=== PATIENT | female | born 1945 | race Caucasian/White ===

== ENCOUNTER → 2021-10-24 14:06 | Outpatient (CLI) | payer MEDICARE, SELFPAY ==
[2021-10-24 14:15] LABS: Adenovirus F 40/41, stool Not Detected (NotDetected); Astrovirus Not Detected (NotDetected); Campylobacter Not Detected (NotDetected); Clostridium Difficile A/B, PCR Not Detected (NotDetected); Cryptosporidium Not Detected (NotDetected); Cyclospora Cayetanesis Not Detected (NotDetected); Entamoeba histolytica Not Detected (NotDetected); Enteroaggregative E coli Not Detected (NotDetected); Enteropathogenic E coli Not Detected (NotDetected); Enterotoxigenic E coli Not Detected (NotDetected); Giardia lamblia Not Detected (NotDetected); Norovirus Not Detected (NotDetected); Plesimonas Shigalloides, PCR Not Detected (NotDetected); Rotavirus A Not Detected (NotDetected); Salmonella, PCR Not Detected (NotDetected); Sapovirus Not Detected (NotDetected); Shiga-like toxin E coli Not Detected (NotDetected); Shigella Enterovasive E coli Not Detected (NotDetected); Vibrio Cholerae Not Detected (NotDetected); Vibrio, PCR Not Detected (NotDetected); Yersinia Entercolitica, PCR Not Detected (NotDetected)
== END ==
PROVIDERS: Visit Provider Nurse Practitioner Family
DX: R19.7 Diarrhea, unspecified (principal); R19.4 Change in bowel habit; R15.2 Fecal urgency; R14.0 Abdominal distension (gaseous); R15.9 Full incontinence of feces
CPT/HCPCS: 87506

== ENCOUNTER 2024-10-09 12:53 | Outpatient (CLI) | payer MEDICARE, SELFPAY ==
[2024-10-09 13:20] LABS: Basophils % 0.5 % (0.1-2.0); Eosinophils # 0.1 K/mm3 (0.0-0.4); Eosinophils % 1.1 % (0.1-12.0); Hematocrit 35.2 % (37.0-47.0); Hemoglobin 11.6 g/dL (12.2-16.2); Lymphocytes # 1.9 K/mm3 (0.7-4.5); Lymphocytes % 29.4 % (10-50); Mean Corpuscular Hemoglobin 32.4 pg (27.0-31.2); Mean Corpuscular Volume 98.3 fl (81-99); Mean Platelet Volume 11.5 fl (7.4-10.4); Monocytes # 0.5 K/mm3 (0.1-1.0); Monocytes % 7.8 % (1.7-9.3); Platelet Count 234 K/mm3 (142-424); Red Blood Count 3.58 M/mm3 (4.20-5.40); Red Cell Distribution Width 12.2 % (11.5-17.5); White Blood Count 6.5 K/mm3 (4.8-10.8)
[2024-10-09 14:03] LABS: Chloride 106 mmol/L (98-107); Sodium 141 mmol/L (136-145)
[2024-10-09 14:06] LABS: Blood Urea Nitrogen 25 mg/dl (7-17); Calcium 10.1 mg/dl (8.4-10.2); Carbon Dioxide 30 mmol/L (22.0-30.0); Estimated Glomerular Filt Rate 48 ml/min (>60); GFR (African American) 58 ML/MIN (>60); Glucose 91 mg/dl (74-100)
== END 2024-10-09 23:59 | disposition home or self-care (01) ==
LOC: LAB 12:56
PROVIDERS: PCP Physician Assistant Surgical; Visit Provider Surgery
DX: Z79.01 Long term (current) use of anticoagulants (principal); Z91.02 Food additives allergy status; I10 Essential (primary) hypertension
CPT/HCPCS: 36415; 80048; 85025

== ENCOUNTER 2025-01-22 11:54 | Outpatient (CLI) | payer MEDICARE, SELFPAY ==
--- OUTSIDE RECORDS SUMMARY | 2025-01-22 11:57 | XMS_ITS | Continuity of Care Document ---
Author Organization [facility] Address [address] [address] Care Team Providers Care Core Sticker Name Role Phone ANGEL CHAU Primary Care Provider Assessment No assessment recorded. Plan of Treatment Reminders Order Date Submit Date Provider Last Modified By Organization Details Last Modified Time Details Appointments NEUROLOG Y RECHECK 2024 02:00P M [facility] Not available Not available Not available RECHECK 2024 01:30P M ANGEL CHAU PA-C Not available Not available Not available DERM VISIT 2025 01:40P M WHITNEY NARVAEZ RECYCLING DIRECTOR Not available Not available Not available Lab CMP, serum or plasma 2024 025 [facility], [address] [place] [address], [phone], 12/07/2024 19:19:24 vitamin D, 25-hydro xy, total, serum 2024 025 [facility], [address] [place] [address], [phone], 12/07/2024 19:04:54 lipid panel, serum 2024 025 [facility], [address] [place] [address], [phone], 12/07/2024 19:19:22 iron + total iron-bin ding capacity (TIBC), serum 2024 025 [facility], [address] [place] [address], [phone], 12/07/2024 19:19:25 CBC w/ auto diff 2024 025 [facility], [address] [place] [address], [phone], 12/07/2024 15:49:28 Referral None recorded . Procedures None recorded . Surgeries None recorded . Imaging None recorded . Medication Orders alendron ate 70 mg tablet 2024 025 [facility], [address], [id number], 12/08/2024 15:47:50 Patient TargetsNo targets recorded. Patient Instructions Encounter Date Encounter Id Patient Instructions Last Modified By Organization Details Last Modified Time 12/07/2024 [id number] adult depression screening* Not available 12/14/2024 11:20:29 fall risk assessment* Not available 12/14/2024 11:20:29 advance care planning: care instructions [email or web address] Not available 12/07/2024 14:12:39 Your Screening Plan: 1. Colon Cancer Screening: Colonoscopy - Last completed 11/14/2021 2. Cervical Cancer Screening: Pap Smear - Last completed 02/22/2019 3. Breast Cancer Screening: Mammogram - Last completed 06/26/2024 4. Lung Cancer Screening (Smokers only): LDCT Scan - Last completed 06/07/2024 Due 5. Bone Density Screening: DEXA - Last completed 01/03/2024 Due Not Due 6. Hepatitis C Screening: Completed Your Immunization Plan: 1. Hepatitis A - Not Indicated 2. Hepatitis B - Not Indicated 3. Tdap - Last completed 12/06/2023 Due 4. PCV20 - 5. Shingrix - Needs 2nd dose 6. COVID-19 - Completed 7. RSV - Completed 8. Influenza - Completed current season [email or web address] Not available 11/30/2024 12:52:15 Reason for Referral None Reported. Results Created Date Observation Date Name Description Value Unit Range Abnormal Flag Note LastModifiedBy Organization Detail LastModifiedTime 01/06/2001/02/2025 ankle brach ial index No observ ation record ed. [email or web address] Not Available 01/05 08:54:31 01/06/20 25 01/02/2025 vascu lar exami nattyler n (PROC ) No observ ation record ed. [email or web address] Not Available 2024 11:57:47 01/06/20 25 01/02/2025 (LASHON) ankle brach ial index * No observ ation record ed. [email or web address] Not Available 2024 11:57:20 01/06/20 25 01/02/2025 US, duple x, arter ial, lower extre mity, compl ete No observ ation record ed. [email or web address] Not Available 01/05 16:41:32 Result Notes None recorded. Problems Name Problem SNOMED Code Status Onset Date Resolution Date Notes Provider Name and Address Organization Details Recorded Time Periphera l vascular disease 731864739 Active 2016 Arterial ultrasoun d both lower extremiti es by Dr. Reza 11/25/2023 showed moderate occlusive disease in the right lower extremity and mild occlusive disease in the left lower extremity noted also on arterial Doppler right lower extremity 10/27/2023 -Dr. Reza. 08/17/22-r =severele ft -milddr juaquin RIZO MD [address] [place] [address], [phone] 4 15:23:25 Tobacco dependenc e syndrome 59164080 Active 2016 Stefania Brush [facility] 4 09:42:31 Hyperlipi demia 60534723 Active 2016 Zoila Ordoñez [facility] 4 09:59:37 Chronic obstructi ve pulmonary disease 89489777 Active 2018 Stefania Brush [facility] 4 09:42:31 Nicotine dependenc e 54680696 Active 2020 Zoila Ordoñez [facility] 4 09:59:37 Coronary arteriosc lerosis 88068025 Active 2021 Stefania Brush [facility] 4 09:42:31 Osteopeni a 761878600 Active 2021 Zoilafavian Ordoñez [facility], [facility] 4 09:59:37 History of colonosco py 109727764840 Active 2021 Zoila Ordoñez [facility], [facility] 4 09:59:38 Eczema 25405731 Active 2021 Zoilafavian Ordoñez [facility], [facility] 4 09:59:37 Chronic kidney disease stage 3A 408848893 Active 2022 Zoilafavian Ordoñez [facility], [facility] 4 09:59:37 Near syncope 292165813 Active 2022 Monticello Tiago [facility], [facility] 4 09:59:37 Idiopathi c periphera l neuropath y 00555315 Active 2022 [facility] 4 09:59:37 Long-term current use of anticoagu lant 610192721 Active 2022 Zoila Ordoñez [facility] 4 09:59:37 Malnutrit ion (calorie) 885634307 Active Mont[place]ello Tiago [facility] 4 09:59:37 Microscop ic colitis 441007401 Active 2022 [facility] 4 09:59:37 Iron deficienc y anemia 93472464 Active 2023 [place], [address], [facility] 4 16:11:38 Atrial fibrillat ion 72680848 Active 2023 [place], [address], [facility] 4 16:11:38 Hypercoag ulability state 77733520 Active 2023 [place], [address], [facility] 4 16:11:38 History of syncope 855464966448 109 Active 2024 ANGEL CHAU PA-C [address] [place], [address], [facility] 5 16:23:35 Hypertens pacheco disorder 15426606 Active 2014 From Automated Load;Prov ider: Cr King;St atus: Active Stefania Brush lori, [facility] 4 09:42:31 Problem Notes None recorded. Procedures Surgical History Date Name Laterality Status Provider Name and Address Organization Details Recorded Time 12/08/19 25 Cerumen removal - Irrigation, Unilateral completed ANGEL CHAU PA-C [address] [place], [address], [facility] 12/07/2024 14:04:30 01/03/20 24 DXA Low Bone Mass 2 - Tx completed NOEMI LEVINE MD [address] [place], [address], [facility] 01/03/2024 16:21:33 11/12/19 24 TCM completed Jenny Story [facility] 11/11/2023 07:29:34 08/18/19 24 Destruction BN Lesions completed Winter Osborne [facility] 08/18/2023 14:24:56 09/10/19 23 TCM completed ANGEL CHAU PA-C [address] [place], [address], [facility] 09/02/2022 15:23:29 06/08/20 22 EKG completed LUCA LEUNG PA-C [address] [place], [address], [facility] 06/08/2022 15:49:40 05/27/20 22 Destruction Premalignant Lesion(s) completed Sherice Hema [facility] 05/27/2022 13:49:55 02/13/20 22 Tobacco Cessation Counseling; 3-10 mins completed RADHA TOLENTINO DO [address] [place], [address], [facility] 02/12/2022 14:57:11 09/03/19 22 DXA Low Bone Mass 2 - Tx completed NOEMI LEVINE MD [address] [place] [address], [address], [facility] 09/03/2021 16:01:11 06/09/20 21 EKG completed LUCA LEUNG PA-C [address] [place] [address], [address], [facility] 06/09/2021 16:49:56 06/28/20 20 EKG completed LUCA LEUNG PA-C [address] [place] [address], [address], [facility] 06/28/2020 12:24:27 04/09/20 20 Electromyography (EMG) with Nerve Conduction Study (NCV) completed Ingrid Moss (Camille) [facility] 04/09/2020 12:55:51 03/14/20 19 DXA Low Bone Mass 2 - Tx completed NOEMI LEVINE MD [address] [place] [address], [address], [facility] 03/14/2019 16:38:02 03/07/20 19 Stress Test - Nuclear Lexiscan completed CR KING MD [address] [place] [address], [address], [facility] 03/07/2019 12:15:56 02/23/20 19 Cerumen removal - Instruments, Bilateral completed ALIREZA RAHMAN PA-C [address] [place] [address], [address], [facility] 02/23/2019 05:42:41 12/27/19 19 Echocardiogram completed YULISSA KINCAID MD [address] [place] [address], [address], [facility] 12/26/2018 09:53:18 12/21/19 19 VAS - Carotid Duplex completed CR KING MD [address] [place] [address], [address], [facility] 12/20/2018 12:51:36 12/21/19 19 EKG completed SUSAN URB[place], [address], [facility] 12/20/2018 12:43:33 10/21/19 19 VAS - Art Dup - Lower Extremity completed HUSSEIN BINGHAM MD [address] [place], [address], [facility] 10/20/2018 15:00:31 10/21/19 19 EKG [place], [address], [facility] 10/20/2018 14:40:00 04/19/20 18 Stress Test - Nuclear completed CR KING MD [address] [place], [address], [facility] 04/19/2018 15:40:42 10/21/19 18 EKG completed [place], [address], [facility] 10/20/2017 13:55:52 04/21/20 17 VAS - Art Dup - Lower Extremity completed CR KING MD [address] [place], [address], [facility] 04/21/2017 15:43:54 04/21/20 17 EKG completed [place], [address], [facility] 04/21/2017 14:41:51 10/13/19 17 EKG [place], [address], [facility] 10/12/2016 11:45:52 femoral artery bypass completed Dalia Richard [facility] 08/31/2024 13:27:36 Cholecystectomy completed Mojgan Mccabe [facility] 09/08/2016 08:23:42 Cardiac Surgery completed Mojgan Mccabe [facility] 09/08/2016 08:23:53 Remove tonsils and adenoids completed [facility] 09/08/2016 08:23:59 Other completed [facility] 09/08/2016 08:24:07 Imaging Results None recorded. Procedure Notes None recorded. Medical Equipment Implant [employer] Issuing Agency Serial Number Lot Number Status Provider Name and Address Organization Details Recorded Time [employer] FDA [id number] Y Jennifer Evangelista [facility] 04/06/2019 17:20:02 Allergies Allergen ID Allergen Name Allergen Category Reaction Reaction Severity Criticality Documentation Date Start Date Code Code System Note Provider Name and Address Organization Details Recorded Time 404205 acetamino phen / hydrocodo ne medicatio n Not available Not available Not available 06/11/20162012 72306 2 RxNorm updat ed 8-201 9 Susannah geiger [facility] 9 08:25:28 323993 Keflex medicatio n Not available Not available Not available 06/11/20162010 02064 7 RxNorm updat ed 8-201 9 Susannah geiger [facility] 9 08:25:22 040787 codeine medicatio n Not available Not available Not available 06/11/20162010 2670 RxNorm updat ed 8-201 9 Susannah geiger [facility] 9 08:25:16 451730 Product containin g penicilli n (product) medicatio n Not available Not available Not available 03/07/2019 87821 8001 SNOMED updat ed 8-201 9 Susannah geiger [facility] 9 10:17:08 154198 Medicinal product containin g cephalosp clare and acting as antibacte rial agent (product) medicatio n Not available Not available Not available 03/07/2019 89772 9009 SNOMED Susannah geiger [facility] 9 10:17:26 266602 cephalexi n medicatio n Not available Not available Not available 06/15/2022 2231 RxNorm Stefania Brush [facility] 15:53:28 Medications Name Sig Start Date Stop Date Status Note LastModified by Organization Details LastModified Time famotidin e 10 mg tablet (10 MG) 06/02 completed Not Available Not Available Not Available atorvasta tin 10 mg tablet Take 1 tablet every day by oral route. active Not Available Not Available No t Available alendrona te 70 mg tablet Take 1 tablet every week by oral route. 2024 active Not Available Not Available Not Avai lable simvastat in 10 mg tablet Take 1 tablet every day by oral route. 11/23 completed d/c'd per hospital ist 11/06/[address] of simvasta tin Not Available Not Available Not Available Plavix 75 mg tablet Take 1 mg every day by oral route. 06/08 completed Not Available Not Available Not Available aspirin 81 mg tablet,de layed release 1 {tablet_ dr} by oral route. active Not Available Not Available No t Available triamcino lone acetonide 0.1 % topical cream APPLY A THIN LAYER TO THE AFFECTED AREA(S) BY TOPICAL ROUTE 2 TIMES PER DAY 2021 active Not Available Not Available Not Avai lable prednison e 10 mg tablets in a dose pack take as directed . 06/02 completed Not Available Not Available Not Available famotidin e 20 mg tablet 20 mg by oral route. active Not Available Not Available No t Available lisinopri l 10 mg tablet Take 1 tablet every day by oral route. 12/11 completed Not Available Not Available Not Available nitroglyc maria l 0.4 mg sublingua l tablet As needed 2020 active Frequenc y: prn;Medi cation Descript ion: nitrogly cerin; Dosage:1 ; Route:richardson blingual ; refills: PRN 1 yr; Quantity :25 tablet Not Available Not Available Not Available Advil 200 mg tablet As needed 03/07 completed Frequenc y: prn;Medi cation Descript ion: ibuprofe n; Dosage:4 ; Route:or al; refills: 0 Not Available Not Available Not Available aspirin 81 mg tablet Daily 09/09 completed Duration : 30 days;Yoshi quency: daily;Me dication Descript ion: aspirin; Dosage:1 ; Route:or al; refills: 0; Quantity :30 tablet Not Available Not Available Not Available lisinopri l 5 mg tablet TAKE ONE TABLET BY MOUTH ONCE A DAY 2021 active Not Available Not Available Not Avai lable gabapenti n 100 mg capsule Take 2 capsules every day by oral route at bedtime for 90 days, for nerve pain. 2024 active Not Available Not Available Not Avai lable lisinopri l 10 mg-hydroc hlorothia zide 12.5 mg tablet Take one each day 03/09 completed Frequenc y: daily;Me dication Descript ion: hydrochl orothiaz martin-patricia nopril; Dosage:1 ; Route:or al; refills: 3; Quantity :90 tablet Not Available Not Available Not Available amoxicill in 875 mg-potass ium clavulana te 125 mg tablet Take 1 tablet every 12 hours by oral route for 7 days. 06/08 completed Not Available Not Available Not Available neomycin- polymyxin -hydrocor t 3.5 mg-10,000 unit/mL-1 % ear drops,rome p INSTILL 4 DROPS INTO AFFECTED EAR(S) BY OTIC ROUTE 3 TIMES PER DAY 03/07 completed Not Available Not Available Not Available ibandrona te 150 mg tablet TAKE ONE TABLET BY MOUTH ONCE A MONTH 12/07 completed Not Available Not Available Not Available potassium chloride Daily 12/20 completed Frequenc y: daily;Me dication Descript ion: potassiu m chloride ; Dosage:1 ; refills: 5; Quantity :30 Not Available Not Available Not Available Pepcid 08/31 completed Not Available Not Available Not Available B Complex active Not Available Not Reena ilable Not Available Lipitor 08/31 completed Not Available Not Available Not Available Zantac PRN 12/25 completed Not Available Not Available Not Available Citracal Q hs 02/27 completed Not Available Not Available Not Available Multivita mins Daily active Duration : 30 days;Yoshi quency: daily;Me dication Descript ion: multivit isaac; Dosage:1 ; refills: 0; Quantity :30 Not Available Not Available Not Available Metamucil active Not Available Not Reena ilable Not Available Calcium 500 + D QD 04/28 completed Not Available Not Available Not Available Boniva 3 mg/3 mL intraveno us syringe (3 MG/3ML) active not taking (08/31/19 25) Not Available Not Available Not Available Fiber (calcium polycarbo larry) 625 mg tablet 625 mg by oral route. active Not Available Not Available No t Available triamcino lone acetonide 0.1 %-emollie nt comb.no.4 5 topical cream active Not Available Not Available Not Available Eliquis 5 mg tablet Take 1 tablet twice a day by oral route. active Not Available Not Available No t Available Vitals Date Recorded Body height Body mass index (BMI) Body weight Heart rate Systolic And Diastolic Provider Name and Address Organization Details Last Updated DateTime 12/07/2024 162.56 cm 20.8 kg/m2 07297.68 g 66 /min 123/50 mm[Hg] Tuyet Teran [facility] 12/07/2024 13:01:53 Social History Question Answer Notes LastModified by Organizat ion Details LastModified Time Tobacco Smoking Status Former Smoker Tuyet Teran [facility] 12/06/2023 13:35:13 How Much Tobacco Do You Chew? None [email or web address] Information not available 10/20/2018 Which Illicit Or Recreational Drugs Have You Used? No Illicit Drug Use Per Patient Information not available 10/20/2018 Marital Status Trav [email or web address] Informatio n not available 02/28/2020 What Was The Date Of Your Most Recent Tobacco Screening? 03/03/2023 Information not available 03/03/2023 What Is Your Relationship Status? [email or web address] Information not available 06/09/2021 How Much Tobacco Do You Smoke? 1 PPD Information not available 09/08/2016 Has Tobacco Cessation Counseling Been Provided? Yes [email or web address] Information not available 05/17/2017 On What Date Was Tobacco Cessation Counseling Provided? 03/03/2023 Information not available 03/03/2023 How Many Years Have You Smoked Tobacco? 40 Information not available 09/08/2016 Have You Recently Traveled Abroad? No [email or web address] Information not available 06/09/2021 Sex: Unknown Functional Status Question Answer Note LastModified by Organizat ion Details LastModified Time What is your level of alcohol consumption? Occasional [email or web address] Information not available 10/20/2018 Do you or have you ever used smokeless tobacco? Never used smokeless tobacco [email or web address] Information not available 02/22/2019 What is your occupation? retired [email or web address] Information not available 10/20/2018 Do you or have you ever used e-cigarettes or vape? Never used electronic cigarettes [email or web address] Information not available 02/22/2019 Mental Status None recorded. Family History Relationship Description Onset Age of this Age Resolved Age Notes LastModified by Organization Details LastModified Time Unspecified Relation Malignant neoplastic disease [email or web address] Not available 2016 08:22:24 Unspecified Relation Diabetes mellitus sruark Not available 2016 08:22:31 Unspecified Relation Heart disease sruark Not available 2016 08:22:36 Unspecified Relation Hypertensive disorder sruark Not available 2016 08:22:40 Unspecified Relation Kidney disease sruark Not available 2016 08:22:44 Unspecified Relation Cerebrovascu lar accident sruark Not available 08:22:48 Medical History Condition Response Diabetes N Rheumatic Fever N Bleeding Disorder N Thyroid Disease N Atrial Fibrillation N Hiatal hernia N AIDS/HIV N Tuberculosis N Black Lung N Cancer N Stroke N Thyroid Problems N Lung Disease N Asthma Y Peripheral Vascular Disease N Nervous Illness N Vascular Disease N Jaundice N Warfarin Management N Heart Disease N Ulcers N Hypertension Y Gynecological HistoryNo gynecological history recorded. Obstetrics History GPAL:G 0 P 0 0 0 0 Immunizations Vaccine Type Date Status Note Provider Nam e and Address Organization Details Recorded Time Influenza, adjuvanted, quadrivalent, PF [facility] 13:09:58 Pneumococcal conjugate PCV15, polysaccharide [id number] conjugate, adjuvant, PF 2 completed Tuyet sandoval [facility] 10/23/2021 13:37:09 COVID-19, mRNA, LNP-S, bivalent, PF, 50 mcg/0.5 mL or 25mcg/0.25 mL dose 2 completed ANGEL CHAU PA-C [address] [place], [address], [facility] 04/30/2022 14:31:48 Influenza, adjuvanted, quadrivalent, PF 2 completed ANGEL CHAU PA-C [address] [place], [address], [facility] 04/30/2022 14:31:48 pneumococcal polysaccharide PPV23 3 completed ANGEL CHAU PA-C [address] [place], [address], [facility] 11/04/2022 14:23:11 COVID-19, mRNA, LNP-S, PF, 100 mcg/0.5mL dose or 50 mcg/0.25mL dose 1 completed Not Available [facility] 08/24/2023 09:44:26 COVID-19, mRNA, LNP-S, PF, 100 mcg/0.5mL dose or 50 mcg/0.25mL dose 1 completed Not Available [facility] 08/24/2023 09:44:26 Influenza, high-dose, quadrivalent, PF 3 [facility]23 15:14:54 COVID-19, mRNA, LNP-S, PF, 50 mcg/0.5 mL 3 completed Tuyet Teran null, [facility] 05/05/2023 15:14:55 Tdap 4 completed Tuyet Teran null, [facility] 12/06/2023 14:50:04 zoster recombinant 4 [facility]06[facility]2023 14:50:05 COVID-19, mRNA, LNP-S, PF, 100 mcg/0.5mL dose or 50 mcg/0.25mL dose 1 completed Not Available [facility] 08/24/2023 09:44:26 COVID-19, mRNA, LNP-S, PF, 100 mcg/0.5mL dose or 50 mcg/0.25mL dose 2 completed Not Available [facility] 08/24/2023 09:44:26 RSV, recombinant, protein subunit RSVpreF, adjuvant reconstituted, 0.5 mL, PF 4 [facility] 06/09/2024 15:23:41 Influenza, high-dose, trivalent, PF 4 [facility] 06/09/2024 15:23:42 zoster recombinant 5 completed Tuyet Teran [facility] 12/07/2024 14:39:24 Past Encounters Encounter ID Performer Location Encounter Start Date Encounter Closed Date Diagnosis/Indication Diagnosis SNOMED-CT Code Diagnosis ICD10 Code Diagnosis Note [id number] [facility] [address] [place] [address] 12/07/2024 12:40:53 12/07/2024 14:06:21 Adult health examination 143591527 Z00.00 mammo up-to-date . colonoscop y done october 2021-[place] [facility] in 5 years. FSEs per dermatolog y. Screening mammography 24 206124 Z12.31 mammo normal 06/26/2024 Screening for malignant neoplasm of colon 367982576 Z12.[address] Baird on 11/14/21 showed lymphocyti c colitis and sigmoid tubular adenoma-re peat in 5 years Menopausal and postmenopausal disorders 395216645 N95.8 Screening for osteoporos is-dexa 01/03/24; repeat in 2 years Hepatitis C screening 41 0911905 Z11.59 Has patient ever had Hep C screening? YESneg screening 11/04/2022 Nicotine dependence 5629 4008 Z87.891 She had quit smoking on 11/26/23 but unfortunat sindy restarted and smokes 5 cigs a day. 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 CT lung screening done 06/07/2024 and did not show nodules. she's back on Chantix. Active immunization 8037 5831 Z23 Has patient had Hep B vaccine? NO2nd shingrix due Eye disord er screening 706489968 Z13.5 Has patient ever had eye/glauco ma screening? YES Depression screening 171 566126 Z13.31 PHQ-2 is 0. Peripheral vascular disease 450566411 I73.9 history of revascular ization procedure by Dr. Reza (stenting of infrarenal aorta and bilateral common iliac arteries). Patient also underwent right ilio profunda endarterec yeny (distal external iliac, common femoral, proximal profunda femoris, and proximal superficia l femoral artery) by Dr. Vasiliy collins in 2022. On Eliquis 5 mg twice daily and aspirin 81 mg daily. Had revascular ization performed 11/04/2023, including bypass left femoral to right femoral artery. She was changed from simvastati n to 10 mg of lipitor per vascular surgery. continue active mgt per vascular surgery. She had an outpatient balloon angioplast y once again in September 2024. Continue active management per vascular surgery. Hypertensive disorder 38 441675 I10 continues on lisinopril per cardiology . She sees Luca Leung PA-C. continue active mgt per cardiology . advised to monitor and make sure it's staying less than 140/90. Iron defic iency anemia 12302311 D50.9 stopped ferrous sulfate 325 mg. Hemoglobin was 11.5 on 12/06/2023. Iron level normal at that time. recheck CBC and iron level. Hyperlipidemia [id number] E78.5 LDL 53 last April. Changed from simvastati n to atorvastat in per vascular surgery. Coronary arteriosclerosis [id number] I25.10 continue active mgt per cardiology . on ASA and statin. EKGs per cardiology . Chronic ob structive pulmonary disease [id number] J44.9 stable without inhaler Chronic ki dney disease stage 3A [id number] N18.31 Avoid nephrotoxi c agents and stay well hydrated. repeat metabolic panel. Osteopenia [id number] M85 .80 dexa on 01/03/2024 showed worsening osteopenia , and bisphospho christopher therapy was recommende d to be continued at that time. she has been on bonvia but sometimes forgets to take it. she would like a weekly med to take inseatd. advised to take 1200 mg of calcium and 2000 IUs of vit D3 daily. Continue to work on smoking cessation and regular weightbear ing exercise. DEXA is to be repeated in 2 years. Idiopathic peripheral neuropathy [id number] G60.9 continue active mgt per neurology. taking a B complex and gabapentin . Long-term current use of anticoagulant [id number] Z79.01 On chronic Eliquis for vascular disease. Microscopic colitis 2357 71742 K52.839 Has history of microscopi c colitis. Continue active management per GI. Atrial fibrillation 4943 6004 I48.91 History of atrial fibrillati on in postop setting. Has been in sinus rhythm but remains on Eliquis for peripheral vascular disease as well. continue active mgt per cardiology . Hypercoagu lability state [id number] D68.69 Due to prior history of atrial fibrillati on. Continues on Eliquis. History of syncope 14299 [id number] 36061 Z87.898 hx syncope/ne ar syncope. cardiac work up, including holter, echo, myoview GXT with subsequent implanted loop recorder without abnormalit ies or recurrent episodes. continue active mgt per cardiology . Impacted c erumen in right ear [id number] 445003 H61.21 Right cerumen impaction. Unable to be fully removed with curette, but removed completely with irrigation . Patient is to stop using Q-tips. Recommend Debrox drops or hydrogen peroxide 1-2 times a week to prevent cerumen buildup. Health Concerns Section Related Observation LastModified by Organization Detai ls LastModified Time None Recorded Concern Status LastModified by Organization Details LastModified Time None Recorded Payers Encounter Date Sequence Insurance Name Policy Number Policy Montes Covered Member ID Montes Member ID Guarantor Name 12/07/2024 1 [place] Alena Villanueva [id number] Alena Villanueva 12/07/2024 2 [employer] (MEDICARE SUPPLEMENT) Alena Villanueva [id number] Alena Villanueva Notes Date Note Type Note Provider Name and Address Organization Details Recorded Time 12/07/2024 text/html Patient presents for annual wellness visit and follow-up of peripheral vascular disease, hypertension, iron deficiency anemia, hyperlipidemia, coronary artery disease, COPD, osteopenia, idiopathic peripheral neuropathy, and atrial fibrillation. She continues to be followed closely by Dr. Juaquin of vascular surgery as she is a vasculopath and has had multiple revascularization procedures with the most recent in early September this year. She denies claudication symptoms but admits to not walking 30 minutes a day as he is recommended. She also unfortunately continues to smoke but is down to 5 cigarettes daily. She is on generic Chantix but can only take the morning dose as the evening dose causes nightmares. She has no chest pain or shortness of breath. She continues to see Luca Leung PA-C of cardiology. She does not check her blood pressure regularly. She has a history of iron deficiency anemia and no longer takes an iron supplement daily. She is tolerating a atorvastatin and denies myalgias. She has a history of coronary artery disease, and again, is followed by cardiology. She denies shortness of air with exertion, chest pain, or orthopnea. COPD has been stable off inhalers. She is on Boniva for osteopenia but states this is difficult for her. Her to remember as it is monthly dosing. She would like to change to Fosamax which is weekly dosing. DEXA scan is up-to-date. She continues on gabapentin per neurology for neuropathy and tolerates this well. Patient had a brief episode of atrial fibrillation last year in the postop setting, and she remains on Eliquis, though she states she has been in normal sinus rhythm since then. For about 2 months, she has had fullness and muffled hearing on the right. Her 's labor economist told her she has a cerumen impaction. She denies drainage from the ear or ear ache. She has otherwise been in her usual state of health. See template for annual wellness visit. ANGEL CHAU PA-C [address] [place], [address], [facility] 12/07/2024 14:16:47 OBGyn Episode No OBEpisode recorded.
--- OUTSIDE RECORDS SUMMARY | 2025-01-22 11:57 | XMS_ITS | Data Portability ---
Author Organization [facility] [place] [facility] Address [address] [facility] [address] [place] [address] Care Team Providers Care Dietitian Therapeutic Name Role Phone ANGEL CALLAHAN Primary Care Provider [phone] Assessment No assessment recorded. Plan of Treatment Reminders Order Date Submit Date Provider Last Modified By Organization Details Last Modified Time Details Appointments NEUROLOG Y RECHECK 2024 02:00P M [facility] Not available Not available Not available RECHECK 2024 01:30P M ANGEL CALLAHAN PA-C Not available Not available Not available DERM VISIT 2025 01:40P M WHITNEY NARVAEZ ARCHIVAL RECORDS CLERK Not available Not available Not available Lab CMP, serum or plasma 2024 025 [facility], [address] [place] [address], [address], 12/07/2024 19:19:24 vitamin D, 25-hydro xy, total, serum 2024 025 [facility], [address] [place] [address], [id number], 12/07/2024 19:04:54 lipid panel, serum 2024 025 [facility], [address] [place] [address], [address], 12/07/2024 19:19:22 iron + total iron-bin ding capacity (TIBC), serum 2024 025 [facility], [address] [place] [address], [address], 12/07/2024 19:19:25 CBC w/ auto diff 2024 025 [facility], [address] [place] [address], [address], 12/07/2024 15:49:28 CMP, serum or plasma 2023 024 [facility], [address] [place] [address], [address], 06/09/2024 19:05:27 lipid panel, serum 2023 024 [facility], [address] [place] [address], [address], 06/09/2024 19:05:26 iron + total iron-bin ding capacity (TIBC), serum [email or web address] [place] [address], [address] [place] [address], [address], 07/03/2024 10:07:07 CBC w/ auto diff 2023 024 [facility], [address] [place] [address], [address], 06/09/2024 15:16:19 CMP, serum or plasma 2023 024 [facility], [address] [place] [address], [address], 12/07/2023 08:57:21 urinalys is panel, auto 2023 024 [facility], [address] [place] [address], [place], [address], 12/06/2023 15:13:46 CBC w/ auto diff 2023 024 [facility], [address] [place] [address], [address], 12/06/2023 15:37:17 vitamin D, 25-hydro xy, total, serum 2023 024 [facility], [address] [place] [address], [address], 12/06/2023 19:07:49 iron + total iron-bin ding capacity (TIBC), serum 2023 024 [facility], [address] [place] [address], [address], 12/07/2023 08:57:24 Referral None recorded . Procedures None recorded . Surgeries None recorded . Imaging DEXA 2023 024 [facility] Bone Density [facility], [address] [place] [address], [id number], 01/03/2024 16:22:28 Medication Orders alendron ate 70 mg tablet 2024 025 [facility], [address] [place] [address], [id number], 12/08/2024 15:47:50 ibandron ate 150 mg tablet 2023 025 [facility], [address] [place] [address], [id number], 12/07/2024 13:41:47 gabapent in 100 mg capsule [address] [facility], [address] [place] [address], [id number], 08/31/2024 13:17:13 Patient TargetsNo targets recorded. Patient Instructions Encounter Date Encounter Id Patient Instructions Last Modified By Organization Details Last Modified Time 12/06/2023 [id number] adult depression screening* [email or web address] Not available 12/14/2023 09:50:30 08/22/2024 [id number] Risks/Benefits/O p tions/Side Effects of diagnosis and treatment discussed. UV protection and signs of skin cancer discussed [email or web address] Not available 08/21/2024 16:01:41 12/07/2024 [id number] adult depression screening* Not available 12/14/2024 11:20:29 [...] Completed 8. Influenza - Completed current season [email or web address] Not available 11/30/2024 12:52:15 Reason for Referral None Reported. Results Created Date Observation Date Name Description Value Unit Range Abnormal Flag Note LastModifiedBy Organization Detail LastModifiedTime 11/08/19 24 11/08/2023 IRON PANEL -TOTA L AND TIBC iron 34 ug/dL 37-145 low Not Available [facility] [address] [place], [address], 11/08/2023 18:50:24 11/08/19 24 11/08/2023 IRON PANEL -TOTA L AND TIBC total iron binding cap. 255 ug/dL _(pablo c) 250-45 0 normal Not Available [facility] [address] [place], [address], 11/08/2023 18:50:24 11/08/19 24 11/08/2023 IRON PANEL -TOTA L AND TIBC unsat.iron binding cap. 221 ug/dL 112-34 7 normal Not Available [facility] [address] [place] [address], [address], 11/08/2023 18:50:24 11/08/19 24 11/08/2023 IRON PANEL -TOTA L AND TIBC % saturation 13 %_(ca lc) 15-50 low Not Available [facility] [address] [place] [address], [address], 11/08/2023 18:50:24 11/08/19 24 11/08/2023 ROMERO TIN ferritin 68 NG/mL 13-157 normal Not Available [facility] [address] [place] [address], [address], 11/08/2023 18:50:26 11/08/19 24 11/08/2023 COMPL ETE BLOOD COUNT white blood cells 7.3 10*3/ uL 3.8-10 .8 normal Not Available [facility] [address] [place] [address], [address], 11/08/2023 19:23:05 11/08/19 24 11/08/2023 COMPL ETE BLOOD COUNT red blood cells 2.75 10*6/ uL 3.80-5 .20 low RESUL TS RECHE CKED Not Available [facility] [address] [place] [address], [address], 11/08/2023 19:23:05 11/08/19 24 11/08/2023 COMPL ETE BLOOD COUNT hemoglobin 9.0 g/dL 12.0-1 6.0 low Not Available [facility] [address] [place] [address], [address], 11/08/2023 19:23:05 11/08/19 24 11/08/2023 COMPL ETE BLOOD COUNT hematocrit 27.4 % 35.0-4 7.0 low Not Available [facility] [address] [place] [address], [address], 11/08/2023 19:23:05 11/08/19 24 11/08/2023 COMPL ETE BLOOD COUNT MCV 100 fL 80-100 normal Not Available [facility] [address] [place] [address], [address], 11/08/2023 19:23:05 11/08/19 24 11/08/2023 COMPL ETE BLOOD COUNT MCH 33 pg 26-35 normal Not Available [facility] [address] [place] [address], [address], 11/08/2023 19:23:05 11/08/19 24 11/08/2023 COMPL ETE BLOOD COUNT MCHC 33 g/dL 32-36 normal Not Available [facility] [address] [place] [address], [address], 11/08/2023 19:23:05 11/08/19 24 11/08/2023 COMPL ETE BLOOD COUNT RDW 13.3 % 11.0-1 5.0 normal Not Available [facility] [address] [place] [address], [address], 11/08/2023 19:23:05 11/08/19 24 11/08/2023 COMPL ETE BLOOD COUNT MPV 10.2 fL 6.2-10 .5 normal Not Available [facility] [address] [place] [address], [address], 11/08/2023 19:23:05 11/08/19 24 11/08/2023 COMPL ETE BLOOD COUNT platelet count 234 10*3/ uL 150-40 0 normal Not Available [facility] [address] [place] [address], [address], 11/08/2023 19:23:05 11/08/19 24 11/08/2023 COMPL ETE BLOOD COUNT neutrophil,a bsolute 5.0 10*3/ uL 1.6-8. 4 normal Not Available [facility] [address] [place] [address], [address], 11/08/2023 19:23:05 11/08/19 24 11/08/2023 COMPL ETE BLOOD COUNT lymphocyte,a bsolute 1.5 10*3/ uL 0.4-5. 1 normal Not Available [facility] [address] [place] [address], [address], 11/08/2023 19:23:05 11/08/19 24 11/08/2023 COMPL ETE BLOOD COUNT monocyte,abs olute 0.5 10*3/ uL 0.0-1. 2 normal Not Available [facility] [address] [place] [address], [address], 11/08/2023 19:23:05 11/08/19 24 11/08/2023 COMPL ETE BLOOD COUNT eosinophil,a bsolute 0.3 10*3/ uL 0.0-0. 8 normal Not Available [facility] [address] [place] [address], [address], 11/08/2023 19:23:05 11/08/19 24 11/08/2023 COMPL ETE BLOOD COUNT basophil,abs olute 0.1 10*3/ uL 0.0-0. 3 normal Not Available [facility] [address] [place] [address], [address], 11/08/2023 19:23:05 11/08/19 24 11/08/2023 COMPL ETE BLOOD COUNT % neutrophils 68.5 % 42.0-7 8.0 normal Not Available [facility] [address] [place] [address], [address], 11/08/2023 19:23:05 11/08/19 24 11/08/2023 COMPL ETE BLOOD COUNT % lymphocytes 20.6 % 11.0-4 7.0 normal Not Available [facility] [address] [place] [address], [address], 11/08/2023 19:23:05 11/08/19 24 11/08/2023 COMPL ETE BLOOD COUNT % monocytes 6.5 % 0.0-11 .0 normal Not Available [facility] [address] [place] [address], [address], 11/08/2023 19:23:05 11/08/19 24 11/08/2023 COMPL ETE BLOOD COUNT % eosinophils 3.5 % 0.0-7. 0 normal Not Available [facility] [address] [place] [address], [address], 11/08/2023 19:23:05 11/08/19 24 11/08/2023 COMPL ETE BLOOD COUNT % basophils 0.9 % 0.0-3. 0 normal Not Available [facility] [address] [place] [address], [address], 11/08/2023 19:23:05 11/08/19 24 11/08/2023 COMPL ETE BLOOD COUNT nucleated red cells 0.1 % 0.0-0. 9 normal Not Available [facility] [address] [place] [address], [address], 11/08/2023 19:23:05 11/08/19 24 11/08/2023 COMPL ETE BLOOD COUNT nucleated RBCs, absolute 0.00 10*3/ uL not estab. normal Not Available [facility] [address] [place] [address], [address], 11/08/2023 19:23:05 12/06/19 24 12/06/2023 COMPL ETE BLOOD COUNT white blood cells 6.2 10*3/ uL 3.8-10 .8 normal Not Available [facility] [address] [place] [address], [address], 12/06/2023 15:37:17 12/06/19 24 12/06/2023 COMPL ETE BLOOD COUNT red blood cells 3.46 10*6/ uL 3.80-5 .20 low Not Available [facility] [address] [place] [address], [address], 12/06/2023 15:37:17 12/06/19 24 12/06/2023 COMPL ETE BLOOD COUNT hemoglobin 11.5 g/dL 12.0-1 6.0 low Not Available [facility] [address] [place] [address], [address], 12/06/2023 15:37:17 12/06/19 24 12/06/2023 COMPL ETE BLOOD COUNT hematocrit 35.0 % 35.0-4 7.0 normal Not Available [facility] [address] [place] [address], [address], 12/06/2023 15:37:17 12/06/19 24 12/06/2023 COMPL ETE BLOOD COUNT MCV 101 fL 80-100 high Not Available [facility] [address] [place] [address], [address], 12/06/2023 15:37:17 12/06/19 24 12/06/2023 COMPL ETE BLOOD COUNT MCH 33 pg 26-35 normal Not Available [facility] [address] [place] [address], [address], 12/06/2023 15:37:17 12/06/19 24 12/06/2023 COMPL ETE BLOOD COUNT MCHC 33 g/dL 32-36 normal Not Available [facility] [address] [place] [address], [address], 12/06/2023 15:37:17 12/06/19 24 12/06/2023 COMPL ETE BLOOD COUNT RDW 13.6 % 11.0-1 5.0 normal Not Available [facility] [address] [place] [address], [address], 12/06/2023 15:37:17 12/06/19 24 12/06/2023 COMPL ETE BLOOD COUNT MPV 9.9 fL 6.2-10 .5 normal Not Available [facility] [address] [place] [address], [address], 12/06/2023 15:37:17 12/06/19 24 12/06/2023 COMPL ETE BLOOD COUNT platelet count 216 10*3/ uL 150-40 0 normal Not Available [facility] [address] [place] [address], [address], 12/06/2023 15:37:17 12/06/19 24 12/06/2023 COMPL ETE BLOOD COUNT neutrophil,a bsolute 3.9 10*3/ uL 1.6-8. 4 normal Not Available [facility] [address] [place] [address], [address], 12/06/2023 15:37:17 12/06/19 24 12/06/2023 COMPL ETE BLOOD COUNT lymphocyte,a bsolute 1.7 10*3/ uL 0.4-5. 1 normal Not Available [facility] [address] [place] [address], [address], 12/06/2023 15:37:17 12/06/19 24 12/06/2023 COMPL ETE BLOOD COUNT monocyte,abs olute 0.4 10*3/ uL 0.0-1. 2 normal Not Available [facility] [address] [place] [address], [address], 12/06/2023 15:37:17 12/06/19 24 12/06/2023 COMPL ETE BLOOD COUNT eosinophil,a bsolute 0.1 10*3/ uL 0.0-0. 8 normal Not Available [facility] [address] [place] [address], [address], 12/06/2023 15:37:17 12/06/19 24 12/06/2023 COMPL ETE BLOOD COUNT basophil,abs olute 0.0 10*3/ uL 0.0-0. 3 normal Not Available [facility] [address] [place] [address], [address], 12/06/2023 15:37:17 12/06/19 24 12/06/2023 COMPL ETE BLOOD COUNT % neutrophils 63.4 % 42.0-7 8.0 normal Not Available [facility] [address] [place] [address], [address], 12/06/2023 15:37:17 12/06/19 24 12/06/2023 COMPL ETE BLOOD COUNT % lymphocytes 27.9 % 11.0-4 7.0 normal Not Available [facility] [address] [place] [address], [address], 12/06/2023 15:37:17 12/06/19 24 12/06/2023 COMPL ETE BLOOD COUNT % monocytes 6.2 % 0.0-11 .0 normal Not Available [facility] [address] [place] [address], [address], 12/06/2023 15:37:17 12/06/19 24 12/06/2023 COMPL ETE BLOOD COUNT % eosinophils 1.8 % 0.0-7. 0 normal Not Available [facility] [address] [place] [address], [address], 12/06/2023 15:37:17 12/06/19 24 12/06/2023 COMPL ETE BLOOD COUNT % basophils 0.7 % 0.0-3. 0 normal Not Available [facility] [address] [place] [address], [address], 12/06/2023 15:37:17 12/06/19 24 12/06/2023 COMPL ETE BLOOD COUNT nucleated red cells 0.0 % 0.0-0. 9 normal Not Available [facility] [address] [place] [address], [address], 12/06/2023 15:37:17 12/06/19 24 12/06/2023 COMPL ETE BLOOD COUNT nucleated RBCs, absolute 0.00 10*3/ uL not estab. normal Not Available [facility] [address] [place] [address], [address], 12/06/2023 15:37:17 12/06/19 24 12/06/2023 VITAM IN D 25-OH vitamin D 25-oh, total 39 NG/mL >=30 NG/mL normal Not Available [facility] [address] [place] [address], [address], 12/06/2023 19:07:49 12/06/19 24 12/07/2023 COMP. METAB OLIC PANEL glucose 101 mg/dL 74-100 high Not Available [facility] [address] [place] [address], [address], 12/07/2023 08:57:21 12/06/19 24 12/07/2023 COMP. METAB OLIC PANEL blood urea nitrogen 21 mg/dL 6-20 high Not Available [facility] [address] [place] [address], [address], 12/07/2023 08:57:21 12/06/19 24 12/07/2023 COMP. METAB OLIC PANEL creatinine 0.74 mg/dL 0.50-0 .95 normal Not Available [facility] [address] [place] [address], [address], 12/07/2023 08:57:21 12/06/19 24 12/07/2023 COMP. METAB OLIC PANEL BUN/creatini ne ratio 28 (calc ) 10-20 high Not Available [facility] [address] [place] [address], [address], 12/07/2023 08:57:21 12/06/19 24 12/07/2023 COMP. METAB OLIC PANEL sodium 141 mmol/ L 136-14 5 normal Not Available [facility] [address] [place] [address], [address], 12/07/2023 08:57:21 12/06/19 24 12/07/2023 COMP. METAB OLIC PANEL potassium 3.9 mmol/ L 3.4-5. 0 normal Not Available [facility] [address] [place] [address], [address], 12/07/2023 08:57:21 12/06/19 24 12/07/2023 COMP. METAB OLIC PANEL chloride 106 mmol/ L 98-107 normal Not Available [facility] [address] [place] [address], [address], 12/07/2023 08:57:21 12/06/19 24 12/07/2023 COMP. METAB OLIC PANEL carbon dioxide 24 mmol/ L 22-31 normal Not Available [facility] [address] [place] [address], [address], 12/07/2023 08:57:21 12/06/19 24 12/07/2023 COMP. METAB OLIC PANEL anion gap 11 (calc ) 7-25 normal Not Available [facility] [address] [place] [address], [address], 12/07/2023 08:57:21 12/06/19 24 12/07/2023 COMP. METAB OLIC PANEL calcium 9.7 mg/dL 8.6-10 .2 normal Not Available [facility] [address] [place] [address], [address], 12/07/2023 08:57:21 12/06/19 24 12/07/2023 COMP. METAB OLIC PANEL total protein 7.0 g/dL 6.4-8. 3 normal Not Available [facility] [address] [place] [address], [address], 12/07/2023 08:57:21 12/06/19 24 12/07/2023 COMP. METAB OLIC PANEL albumin 4.3 g/dL 3.5-5. 2 normal Not Available [facility] [address] [place] [address], [address], 12/07/2023 08:57:21 12/06/19 24 12/07/2023 COMP. METAB OLIC PANEL globulin 2.7 1.5-4. 5 normal Not Available [facility] [address] [place] [address], [address], 12/07/2023 08:57:21 12/06/19 24 12/07/2023 COMP. METAB OLIC PANEL albumin/glob ulin ratio 1.6 (calc ) 1.1-2. 5 normal Not Available [facility] [address] [place] [address], [address], 12/07/2023 08:57:21 12/06/19 24 12/07/2023 COMP. METAB OLIC PANEL bilirubin, total 0.2 mg/dL 0.1-1. 2 normal Not Available [facility] [address] [place] [address], [address], 12/07/2023 08:57:21 12/06/19 24 12/07/2023 COMP. METAB OLIC PANEL alkaline phosphatase 74 U/L 30-121 normal Not Available [facility] [address] [place] [address], [address], 12/07/2023 08:57:21 12/06/19 24 12/07/2023 COMP. METAB OLIC PANEL AST 19 U/L 0-32 normal Not Available [facility] [address] [place] [address], [address], 12/07/2023 08:57:21 12/06/19 24 12/07/2023 COMP. METAB OLIC PANEL ALT 13 U/L 0-33 normal Not Available [facility] [address] [place] [address], [address], 12/07/2023 08:57:21 12/06/19 24 12/07/2023 COMP. METAB OLIC PANEL GFR 83 >= 60 normal NOT E New calcu latio n for GFR (CKD- EPI 2020) is formu lated witho ut race adjus tment facto rs at the recom menda tion of the Natio amari [employer] y [employer] ation and Ameri can Socie ty of Nephr ology . This calcu latio n has not been valid ated in pregn ant women . For pedia tric patie nts refer to https ://kalli alejo.devon may/pr ofess ional s/KDO QI/gf r_cal culat orPed Not Available [facility] [address] [place] [address], [address], 12/07/2023 08:57:21 12/06/19 24 12/07/2023 IRON PANEL -TOTA L AND TIBC iron 147 ug/dL 37-145 high Not Available [facility] [address] [place] [address], [address], 12/07/2023 08:57:23 12/06/19 24 12/07/2023 IRON PANEL -TOTA L AND TIBC total iron binding cap. 355 ug/dL _(pablo c) 250-45 0 normal Not Available [facility] [address] [place] [address], [address], 12/07/2023 08:57:23 12/06/19 24 12/07/2023 IRON PANEL -TOTA L AND TIBC unsat.iron binding cap. 208 ug/dL 112-34 7 normal Not Available [address], [address], 12/07/2023 08:57:23 12/06/19 24 12/07/2023 IRON PANEL -TOTA L AND TIBC % saturation 41 %_(ca lc) 15-50 normal Not Available [facility] [address] [place] [address], [address], 12/07/2023 08:57:23 12/06/19 24 12/06/2023 urina lysis panel , auto Unknown Analyte Clean Catch Not Available [address], [place], [address], 11/19/2023 16:25:50 12/06/19 24 12/06/2023 urina lysis panel , auto Unknown Analyte Yellow Not Available [address], [place], [address], 11/19/2023 16:25:50 12/06/19 24 12/06/2023 urina lysis panel , auto Unknown Analyte Clear Not Available [address], [place], [address], 11/19/2023 16:25:50 12/06/19 24 12/06/2023 urina lysis panel , auto Unknown Analyte 1.015 Not Available [address] [place], [place], [address], 11/19/2023 16:25:50 12/06/19 24 12/06/2023 urina lysis panel , auto Unknown Analyte 5.0 Not Available [address] [place], [place], [address], 11/19/2023 16:25:50 12/06/19 24 12/06/2023 urina lysis panel , auto Unknown Analyte 75 Yee/ul (+) Not Available [address], [place], [address], 11/19/2023 16:25:50 12/06/19 24 12/06/2023 urina lysis panel , auto Unknown Analyte Negati ve Not Available [address] [place], [place], [address], 11/19/2023 16:25:50 12/06/19 24 12/06/2023 urina lysis panel , auto Unknown Analyte Negati ve Not Available [address] [place], [place], [address], 11/19/2023 16:25:50 12/06/19 24 12/06/2023 urina lysis panel , auto Unknown Analyte Normal Not Available [address] [place], [place], [address], 11/19/2023 16:25:50 12/06/19 24 12/06/2023 urina lysis panel , auto Unknown Analyte Negati ve Not Available [address] [place], [place], [address], 11/19/2023 16:25:50 12/06/19 24 12/06/2023 urina lysis panel , auto Unknown Analyte Normal Not Available [address] [place], [place], [address], 11/19/2023 16:25:50 12/06/19 24 12/06/2023 urina lysis panel , auto Unknown Analyte Negati ve Not Available [address] [place], [place], [address], 11/19/2023 16:25:50 12/06/19 24 12/06/2023 urina lysis panel , auto Unknown Analyte Negati ve Not Available [address], [place], [address], 11/19/2023 16:25:50 05/10/20 24 05/10/2024 lung cance r scree ray eligi bilit y asses sment * Age 50-80 YES Not Available [address], [place], [address], 05/10/2024 08:20:46 05/10/20 24 05/10/2024 lung cance r scree ray eligi bilit y asses sment * Age 50-77 Traditional Medicare YES Not Available [address] [place], [place], [address], 05/10/2024 08:20:46 05/10/20 24 05/10/2024 lung cance r scree ray eligi bilit y asses sment * Either current smoker or has quit in last 15 years YES Not Available [address], [place], [address], 05/10/2024 08:20:46 05/10/2005/10/2024 lung cance r scree ray eligi bilit y asses sment * Average of one pack a day for 20 years (20 pack years) YES Not Available [address] , [place], [address], 05/10/2024 08:20:46 05/10/20 24 05/10/2024 lung cance r scree ray eligi bilit y asses sment * Displays signs or symptoms of lung cancer NO Not Available [address] , [place], [address], 05/10/2024 08:20:46 05/10/2005/10/2024 lung cance r scree ray eligi bilit y asses sment * Shared decision making with patient, Risks and benefits of CT Lung screen discussed YES Not Available [address], [place], [address], 05/10/2024 08:20:46 05/10/20 24 05/10/2024 lung cance r scree ray eligi bilit y asses sment * Smoking cessation counseling provided YES Not Available [address], [place], [address], 05/10/2024 08:20:46 05/10/20 24 05/10/2024 lung cance r scree ray eligi bilit y asses sment * Order provided for LDCT YES Not Available [address], [place], [address], 05/10/2024 08:20:46 06/09/20 24 06/09/2024 COMPL ETE BLOOD COUNT white blood cells 7.5 10*3/ uL 3.8-10 .8 normal Not Available [facility] [address] [place] [address], [address], 06/09/2024 15:16:19 06/09/20 24 06/09/2024 COMPL ETE BLOOD COUNT red blood cells 4.10 10*6/ uL 3.80-5 .20 normal Not Available [facility] [address] [place] [address], [address], 06/09/2024 15:16:19 06/09/20 24 06/09/2024 COMPL ETE BLOOD COUNT hemoglobin 13.2 g/dL 12.0-1 6.0 normal Not Available [facility] [address] [place] [address], [address], 06/09/2024 15:16:19 06/09/20 24 06/09/2024 COMPL ETE BLOOD COUNT hematocrit 40.2 % 35.0-4 7.0 normal Not Available [facility] [address] [place] [address], [address], 06/09/2024 15:16:19 06/09/20 24 06/09/2024 COMPL ETE BLOOD COUNT MCV 98 fL 80-100 normal Not Available [facility] [address] [place] [address], [address], 06/09/2024 15:16:19 06/09/20 24 06/09/2024 COMPL ETE BLOOD COUNT MCH 32 pg 26-35 normal Not Available [facility] [address] [place] [address], [address], 06/09/2024 15:16:19 06/09/20 24 06/09/2024 COMPL ETE BLOOD COUNT MCHC 33 g/dL 32-36 normal Not Available [facility] [address] [place] [address], [address], 06/09/2024 15:16:19 06/09/20 24 06/09/2024 COMPL ETE BLOOD COUNT RDW 12.9 % 11.0-1 5.0 normal Not Available [facility] [address] [place] [address], [address], 06/09/2024 15:16:19 06/09/20 24 06/09/2024 COMPL ETE BLOOD COUNT MPV 10.3 fL 6.2-10 .5 normal Not Available [facility] [address] [place] [address], [address], 06/09/2024 15:16:19 06/09/20 24 06/09/2024 COMPL ETE BLOOD COUNT platelet count 225 10*3/ uL 150-40 0 normal Not Available [facility] [address] [place] [address], [address], 06/09/2024 15:16:19 06/09/20 24 06/09/2024 COMPL ETE BLOOD COUNT neutrophil,a bsolute 5.0 10*3/ uL 1.6-8. 4 normal Not Available [facility] [address] [place] [address], [address], 06/09/2024 15:16:19 06/09/20 24 06/09/2024 COMPL ETE BLOOD COUNT lymphocyte,a bsolute 1.9 10*3/ uL 0.4-5. 1 normal Not Available [facility] [address] [place] [address], [address], 06/09/2024 15:16:19 06/09/20 24 06/09/2024 COMPL ETE BLOOD COUNT monocyte,abs olute 0.5 10*3/ uL 0.0-1. 2 normal Not Available [facility] [address] [place] [address], [address], 06/09/2024 15:16:19 06/09/20 24 06/09/2024 COMPL ETE BLOOD COUNT eosinophil,a bsolute 0.1 10*3/ uL 0.0-0. 8 normal Not Available [facility] [address] [place] [address], [address], 06/09/2024 15:16:19 06/09/20 24 06/09/2024 COMPL ETE BLOOD COUNT basophil,abs olute 0.0 10*3/ uL 0.0-0. 3 normal Not Available [facility] [address] [place] [address], [address], 06/09/2024 15:16:19 06/09/20 24 06/09/2024 COMPL ETE BLOOD COUNT % neutrophils 66.3 % 42.0-7 8.0 normal Not Available [facility] [address] [place] [address], [address], 06/09/2024 15:16:19 06/09/20 24 06/09/2024 COMPL ETE BLOOD COUNT % lymphocytes 25.7 % 11.0-4 7.0 normal Not Available [facility] [address] [place] [address], [address], 06/09/2024 15:16:19 06/09/20 24 06/09/2024 COMPL ETE BLOOD COUNT % monocytes 6.1 % 0.0-11 .0 normal Not Available [facility] [address] [place] [address], [address], 06/09/2024 15:16:19 06/09/20 24 06/09/2024 COMPL ETE BLOOD COUNT % eosinophils 1.4 % 0.0-7. 0 normal Not Available [facility] [address] [place] [address], [address], 06/09/2024 15:16:19 06/09/20 24 06/09/2024 COMPL ETE BLOOD COUNT % basophils 0.5 % 0.0-3. 0 normal Not Available [facility] [address] [place] [address], [address], 06/09/2024 15:16:19 06/09/20 24 06/09/2024 COMPL ETE BLOOD COUNT nucleated red cells 0.0 % 0.0-0. 9 normal Not Available [facility] [address] [place] [address], [address], 06/09/2024 15:16:19 06/09/20 24 06/09/2024 COMPL ETE BLOOD COUNT nucleated RBCs, absolute 0.00 10*3/ uL not estab. normal Not Available [facility] [address] [place] [address], [address], 06/09/2024 15:16:19 06/09/20 24 06/09/2024 LIPID PROFI LE HDL cholesterol 71 mg/dL 50-242 normal Not Available [facility] [address] [place] [address], [address], 06/09/2024 19:05:26 06/09/20 24 06/09/2024 LIPID PROFI LE triglyceride s 187 mg/dL 0-149 high TRIGL YCERI DE RANGE S ROSEANNA L: < 150 BORDE RLINE HIGH: 150 - 199 HIGH: 200 - 499 VERY HIGH: > OR = 500 Not Available [facility] [address] [place] [address], [address], 06/09/2024 19:05:26 06/09/20 24 06/09/2024 LIPID PROFI LE cholesterol 186 mg/dL 0-199 normal LEONILA STERO L (TOTA L) RANGE S ROSALBA ABLE: < 200 BORDE RLINE : 200 - 239 HIGHE R RISK: > 239 Not Available [facility] [address] [place] [address], [address], 06/09/2024 19:05:26 06/09/20 24 06/09/2024 LIPID PROFI LE LDL cholesterol 78 mg/dL _(pablo c) 0-99 normal LDL LEONILA STERO L RANGE S OPTIM AL: < 100 NEAR/ ABOVE OPTIM AL: 100 - 129 BORDE RLINE HIGH: 130 - 159 HIGH: 160 - 189 VERY HIGH: > OR = 190 Not Available [facility] [address] [place] [address], [address], 06/09/2024 19:05:26 06/09/20 24 06/09/2024 COMP. METAB OLIC PANEL glucose 106 mg/dL 74-100 high Not Available [facility] [address] [place] [address], [address], 06/09/2024 19:05:27 06/09/20 24 06/09/2024 COMP. METAB OLIC PANEL blood urea nitrogen 23 mg/dL 6-20 high Not Available [facility] [address] [place] [address], [address], 06/09/2024 19:05:27 06/09/20 24 06/09/2024 COMP. METAB OLIC PANEL creatinine 0.84 mg/dL 0.50-0 .95 normal Not Available [facility] [address] [place] [address], [address], 06/09/2024 19:05:27 06/09/20 24 06/09/2024 COMP. METAB OLIC PANEL BUN/creatini ne ratio 27 (calc ) 10-20 high Not Available [facility] [address] [place] [address], [address], 06/09/2024 19:05:27 06/09/20 24 06/09/2024 COMP. METAB OLIC PANEL sodium 142 mmol/ L 136-14 5 normal Not Available [facility] [address] [place] [address], [address], 06/09/2024 19:05:27 06/09/20 24 06/09/2024 COMP. METAB OLIC PANEL potassium 5.1 mmol/ L 3.4-5. 0 high Not Available [facility] [address] [place] [address], [address], 06/09/2024 19:05:27 06/09/20 24 06/09/2024 COMP. METAB OLIC PANEL chloride 106 mmol/ L 98-107 normal Not Available [facility] [address] [place] [address], [address], 06/09/2024 19:05:27 06/09/20 24 06/09/2024 COMP. METAB OLIC PANEL carbon dioxide 25 mmol/ L 22-31 normal Not Available [facility] [address] [place] [address], [address], 06/09/2024 19:05:27 06/09/20 24 06/09/2024 COMP. METAB OLIC PANEL anion gap 11 (calc ) 7-25 normal Not Available [facility] [address] [place] [address], [address], 06/09/2024 19:05:27 06/09/20 24 06/09/2024 COMP. METAB OLIC PANEL calcium 10.7 mg/dL 8.6-10 .2 high Not Available [facility] [address] [place] [address], [address], 06/09/2024 19:05:27 06/09/20 24 06/09/2024 COMP. METAB OLIC PANEL total protein 7.8 g/dL 6.4-8. 3 normal Not Available [facility] [address] [place] [address], [address], 06/09/2024 19:05:27 06/09/20 24 06/09/2024 COMP. METAB OLIC PANEL albumin 4.6 g/dL 3.5-5. 2 normal Not Available [facility] [address] [place] [address], [address], 06/09/2024 19:05:27 06/09/20 24 06/09/2024 COMP. METAB OLIC PANEL globulin 3.2 1.5-4. 5 normal Not Available [facility] [address] [place] [address], [address], 06/09/2024 19:05:27 06/09/20 24 06/09/2024 COMP. METAB OLIC PANEL albumin/glob ulin ratio 1.4 (calc ) 1.1-2. 5 normal Not Available [facility] [address] [place] [address], [address], 06/09/2024 19:05:27 06/09/20 24 06/09/2024 COMP. METAB OLIC PANEL bilirubin, total 0.2 mg/dL 0.1-1. 2 normal Not Available [facility] [address] [place] [address], [address], 06/09/2024 19:05:27 06/09/20 24 06/09/2024 COMP. METAB OLIC PANEL alkaline phosphatase 74 U/L 30-121 normal Not Available [facility] [address] [place], [address], 06/09/2024 19:05:27 06/09/20 24 06/09/2024 COMP. METAB OLIC PANEL AST 23 U/L 0-32 normal Not Available [facility] [address] [place] [address], [address], 06/09/2024 19:05:27 06/09/20 24 06/09/2024 COMP. METAB OLIC PANEL ALT 15 U/L 0-33 normal Not Available [facility] [address] [place] [address], [address], 06/09/2024 19:05:27 06/09/20 24 06/09/2024 COMP. METAB OLIC PANEL GFR 71 >= 60 normal NOT E New calcu latio n for GFR (CKD- EPI 2020) is formu lated witho ut race adjus tment facto rs at the recom menda tion of the [employer] and [employer]r ology . This calcu latio n has not been valid ated in pregn ant women . For pedia jn phame nts refer to [email or web address] :[email or web address] mora s/RIKO QI/gf r_cal culat orPed Not Available [facility] [address] [place] [address], [address], 06/09/2024 19:05:27 06/09/20 24 06/10/2024 IRON TRINH NG PANEL , QUEST iron, quest 126 mcg/d L 45-160 normal Not Available [facility] [address] [place] [address], [address], 06/10/2024 15:37:37 06/09/20 24 06/10/2024 IRON TRINH NG PANEL , QUEST total iron binding cap. 398 mcg/d L_(ca lc) 250-45 0 normal Not Available [facility] [address] [place] [address], [address], 06/10/2024 15:37:37 06/09/20 24 06/10/2024 IRON TRINH NG PANEL , QUEST % saturation 32 %_(ca lc) 16-45 normal Not Available [facility] [address] [place] [address], [address], 06/10/2024 15:37:37 06/26/20 24 06/26/2024 POTAS SIUM potassium 4.5 mmol/ L 3.4-5. 0 normal Not Available [facility] [address] [place] [address], [address], 06/26/2024 18:27:25 06/26/20 24 06/26/2024 PTH, INTAC T WITH CA PTH, intact 43.0 pg/mL 15.0-6 5.0 normal INTER PRETI VE GUIDE ===== ===== ===== ===== ===== ===== ===== ===== ===== ===== ===== === PTH CALCI UM CONDI TION ===== ===== ===== ===== ===== ===== ===== ===== ===== ===== ===== = Roseanna l Roseanna l Roseanna l Parat hyroi d _ Low or Low Hypop faiza yroid ism Low Roseanna l _ Roseanna l or High Prima ry Hyper parat hyroi dism High __ High Roseanna l or Secon elmo Hyper parat hyroi dism Low __ High High Terti kitty Hyper parat hyroi dism __ Low or High Non-P faiza yroid Hyper calce laron Low Roseanna l ===== ===== ===== ===== ===== ===== ===== ===== ===== ===== ===== ==== Not Available [facility] [address] [place], [address], 06/26/2024 19:31:00 06/26/20 24 06/26/2024 PTH, INTAC T WITH CA calcium 9.6 mg/dL 8.6-10 .2 normal Not Available [facility] [address] [place], [address], 06/26/2024 19:31:00 12/09/20 24 06/28/2024 IONIZ ED CALCI UM ionized calcium 5.1 mg/dL 4.7-5. 5 normal Not Available [facility] [address] [place] [address], [address], 06/28/2024 10:09:14 12/08/19 25 12/07/2024 COMPL ETE BLOOD COUNT white blood cells 8.5 10*3/ uL 3.8-10 .8 normal Not Available [facility] [address] [place] [address], [address], 12/07/2024 15:49:28 12/08/19 25 12/07/2024 COMPL ETE BLOOD COUNT red blood cells 4.13 10*6/ uL 3.80-5 .20 normal Not Available [facility] [address] [place] [address], [address], 12/07/2024 15:49:28 12/08/19 25 12/07/2024 COMPL ETE BLOOD COUNT hemoglobin 13.1 g/dL 12.0-1 6.0 normal Not Available [facility] [address] [place] [address], [address], 12/07/2024 15:49:28 12/08/19 25 12/07/2024 COMPL ETE BLOOD COUNT hematocrit 40.6 % 35.0-4 7.0 normal Not Available [facility] [address] [place] [address], [address], 12/07/2024 15:49:28 12/08/19 25 12/07/2024 COMPL ETE BLOOD COUNT MCV 98 fL 80-100 normal Not Available [facility] [address] [place] [address], [address], 12/07/2024 15:49:28 12/08/19 25 12/07/2024 COMPL ETE BLOOD COUNT MCH 32 pg 26-35 normal Not Available [facility] [address] [place] [address], [address], 12/07/2024 15:49:28 12/08/19 25 12/07/2024 COMPL ETE BLOOD COUNT MCHC 32 g/dL 32-36 normal Not Available [facility] [address] [place] [address], [address], 12/07/2024 15:49:28 12/08/19 25 12/07/2024 COMPL ETE BLOOD COUNT RDW 12.8 % 11.0-1 5.0 normal Not Available [facility] [address] [place] [address], [address], 12/07/2024 15:49:28 12/08/19 25 12/07/2024 COMPL ETE BLOOD COUNT MPV 10.5 fL 6.2-10 .5 normal Not Available [facility] [address] [place] [address], [address], 12/07/2024 15:49:28 12/08/19 25 12/07/2024 COMPL ETE BLOOD COUNT platelet count 237 10*3/ uL 150-40 0 normal Not Available [facility] [address] [place] [address], [address], 12/07/2024 15:49:28 12/08/19 25 12/07/2024 COMPL ETE BLOOD COUNT neutrophil,a bsolute 6.0 10*3/ uL 1.6-8. 4 normal Not Available [facility] [address] [place] [address], [address], 12/07/2024 15:49:28 12/08/19 25 12/07/2024 COMPL ETE BLOOD COUNT lymphocyte,a bsolute 1.8 10*3/ uL 0.4-5. 1 normal Not Available [facility] [address] [place] [address], [address], 12/07/2024 15:49:28 12/08/19 25 12/07/2024 COMPL ETE BLOOD COUNT monocyte,abs olute 0.5 10*3/ uL 0.0-1. 2 normal Not Available [facility] [address] [place] [address], [address], 12/07/2024 15:49:28 12/08/19 25 12/07/2024 COMPL ETE BLOOD COUNT eosinophil,a bsolute 0.1 10*3/ uL 0.0-0. 8 normal Not Available [facility] [address] [place] [address], [address], 12/07/2024 15:49:28 12/08/19 25 12/07/2024 COMPL ETE BLOOD COUNT basophil,abs olute 0.0 10*3/ uL 0.0-0. 3 normal Not Available [facility] [address] [place] [address], [address], 12/07/2024 15:49:28 12/08/19 25 12/07/2024 COMPL ETE BLOOD COUNT % neutrophils 71.2 % 42.0-7 8.0 normal Not Available [facility] [address] [place] [address], [address], 12/07/2024 15:49:28 12/08/19 25 12/07/2024 COMPL ETE BLOOD COUNT % lymphocytes 21.3 % 11.0-4 7.0 normal Not Available [facility] [address] [place] [address], [address], 12/07/2024 15:49:28 12/08/19 25 12/07/2024 COMPL ETE BLOOD COUNT % monocytes 5.9 % 0.0-11 .0 normal Not Available [facility] [address] [place] [address], [address], 12/07/2024 15:49:28 12/08/19 25 12/07/2024 COMPL ETE BLOOD COUNT % eosinophils 1.1 % 0.0-7. 0 normal Not Available [facility] [address] [place] [address], [address], 12/07/2024 15:49:28 12/08/19 25 12/07/2024 COMPL ETE BLOOD COUNT % basophils 0.5 % 0.0-3. 0 normal Not Available [facility] [address] [place] [address], [address], 12/07/2024 15:49:28 12/08/19 25 12/07/2024 COMPL ETE BLOOD COUNT nucleated red cells 0.0 % 0.0-0. 9 normal Not Available [facility] [address] [place] [address], [address], 12/07/2024 15:49:28 12/08/19 25 12/07/2024 COMPL ETE BLOOD COUNT nucleated RBCs, absolute 0.00 10*3/ uL not estab. normal Not Available [facility] [address] [place] [address], [address], 12/07/2024 15:49:28 12/08/19 25 12/07/2024 VITAM IN D 25-OH vitamin D 25-oh, total 46 NG/mL >=30 NG/mL normal Not Available [facility] [address] [place] [address], [address], 12/07/2024 19:04:54 12/08/19 25 12/07/2024 LIPID PROFI LE HDL cholesterol 64 mg/dL 50-242 normal Not Available [facility] [address] [place] [address], [address], 12/07/2024 19:19:22 12/08/19 25 12/07/2024 LIPID PROFI LE triglyceride s 172 mg/dL 0-149 high TRIGL YCERI DE RANGE S ROSEANNA L: < 150 BORDE RLINE HIGH: 150 - 199 HIGH: 200 - 499 VERY HIGH: > OR = 500 Not Available [facility] [address] [place] [address], [address], 12/07/2024 19:19:22 12/08/19 25 12/07/2024 LIPID PROFI LE cholesterol 159 mg/dL 0-199 normal LEONILA STERO L (TOTA L) RANGE S ROSALBA ABLE: < 200 BORDE RLINE : 200 - 239 HIGHE R RISK: > 239 Not Available [facility] [address] [place] [address], [address], 12/07/2024 19:19:22 12/08/19 25 12/07/2024 LIPID PROFI LE LDL cholesterol 61 mg/dL _(pablo c) 0-99 normal LDL LEONILA STERO L RANGE S OPTIM AL: < 100 NEAR/ ABOVE OPTIM AL: 100 - 129 BORDE RLINE HIGH: 130 - 159 HIGH: 160 - 189 VERY HIGH: > OR = 190 Not Available [facility] [address] [place] [address], [address], 12/07/2024 19:19:22 12/08/19 25 12/07/2024 LIPID PROFI LE chol/HDL ratio (calc) 2.5 mg/dL normal NO ROSEANNA L RANGE ESTAB LISHE D FOR LEONILA STERO L/HDL RATIO (CALC ULATE D). Not Available [facility] [address] [place] [address], [address], 12/07/2024 19:19:22 12/08/19 25 12/07/2024 COMP. METAB OLIC PANEL glucose 89 mg/dL 74-100 normal Not Available [facility] [address] [place] [address], [address], 12/07/2024 19:19:24 12/08/19 25 12/07/2024 COMP. METAB OLIC PANEL blood urea nitrogen 28 mg/dL 6-20 high Not Available [facility] [address] [place] [address], [address], 12/07/2024 19:19:24 12/08/19 25 12/07/2024 COMP. METAB OLIC PANEL creatinine 1.15 mg/dL 0.50-0 .95 high Not Available [facility] [address] [place] [address], [address], 12/07/2024 19:19:24 12/08/19 25 12/07/2024 COMP. METAB OLIC PANEL BUN/creatini ne ratio 24 (calc ) 10-20 high Not Available [facility] [address] [place] [address], [address], 12/07/2024 19:19:24 12/08/19 25 12/07/2024 COMP. METAB OLIC PANEL sodium 139 mmol/ L 136-14 5 normal Not Available [facility] [address] [place] [address], [address], 12/07/2024 19:19:24 12/08/19 25 12/07/2024 COMP. METAB OLIC PANEL potassium 4.6 mmol/ L 3.4-5. 0 normal Not Available [facility] [address] [place] [address], [address], 12/07/2024 19:19:24 12/08/19 25 12/07/2024 COMP. METAB OLIC PANEL chloride 102 mmol/ L 98-107 normal Not Available [facility] [address] [place] [address], [address], 12/07/2024 19:19:24 12/08/19 25 12/07/2024 COMP. METAB OLIC PANEL carbon dioxide 22 mmol/ L 22-31 normal Not Available [facility] [address] [place] [address], [address], 12/07/2024 19:19:24 12/08/19 25 12/07/2024 COMP. METAB OLIC PANEL anion gap 15 (calc ) 7-25 normal Not Available [facility] [address] [place] [address], [address], 12/07/2024 19:19:24 12/08/19 25 12/07/2024 COMP. METAB OLIC PANEL calcium 10.3 mg/dL 8.6-10 .2 high Not Available [facility] [address] [place] [address], [address], 12/07/2024 19:19:24 12/08/19 25 12/07/2024 COMP. METAB OLIC PANEL total protein 8.0 g/dL 6.4-8. 3 normal Not Available [facility] [address] [place] [address], [address], 12/07/2024 19:19:24 12/08/19 25 12/07/2024 COMP. METAB OLIC PANEL albumin 4.6 g/dL 3.5-5. 2 normal Not Available [facility] [address] [place] [address], [address], 12/07/2024 19:19:24 12/08/19 25 12/07/2024 COMP. METAB OLIC PANEL globulin 3.4 1.5-4. 5 normal Not Available [facility] [address] [place] [address], [address], 12/07/2024 19:19:24 12/08/19 25 12/07/2024 COMP. METAB OLIC PANEL albumin/glob ulin ratio 1.4 (calc ) 1.1-2. 5 normal Not Available [facility] [address] [place] [address], [address], 12/07/2024 19:19:24 12/08/19 25 12/07/2024 COMP. METAB OLIC PANEL bilirubin, total 0.2 mg/dL 0.1-1. 2 normal Not Available [facility] [address] [place] [address], [address], 12/07/2024 19:19:24 12/08/19 25 12/07/2024 COMP. METAB OLIC PANEL alkaline phosphatase 79 U/L 30-121 normal Not Available [facility] [address] [place] [address], [address], 12/07/2024 19:19:24 12/08/19 25 12/07/2024 COMP. METAB OLIC PANEL AST 19 U/L 0-32 normal Not Available [facility] [address] [place] [address], [address], 12/07/2024 19:19:24 12/08/19 25 12/07/2024 COMP. METAB OLIC PANEL ALT 13 U/L 0-33 normal Not Available [facility] [address] [place] [address], [address], 12/07/2024 19:19:24 12/08/19 25 12/07/2024 COMP. METAB OLIC PANEL GFR 49 >= 60 abnormal NOT E New calcu latio n for GFR (CKD- EPI 2020) is formu lated witho ut race adjus tment facto rs at the recom menda tion of the [employer]da [facility]nell and [employer] [facility] of Nephr ology . This calcu latio n has not been valid ated in pregn ant women . For pedia tric patie nts refer to https :[email or web address] [email or web address] may/pr antonio mora s/KDO QI/gf r_cal culat orPed Not Available [facility] [address] [place] [address], [address], 12/07/2024 19:19:24 12/08/19 25 12/07/2024 IRON PANEL -TOTA L AND TIBC iron 97 ug/dL 37-145 normal Not Available [facility] [address] [place] [address], [address], 12/07/2024 19:19:25 12/08/19 25 12/07/2024 IRON PANEL -TOTA L AND TIBC total iron binding cap. 382 ug/dL _(pablo c) 250-45 0 normal Not Available [facility] [address] [place] [address], [address], 12/07/2024 19:19:25 12/08/19 25 12/07/2024 IRON PANEL -TOTA L AND TIBC unsat.iron binding cap. 285 ug/dL 112-34 7 normal Not Available [facility] [address] [place] [address], [address], 12/07/2024 19:19:25 12/08/19 25 12/07/2024 IRON PANEL -TOTA L AND TIBC % saturation 25 %_(ca lc) 15-50 normal Not Available [facility] [address] [place], [address], 12/07/2024 19:19:25 11/25/19 24 11/25/2023 ankle brach ial index , compl ete No observ ation record ed. [email or web address] Not Available 11/25 08:05:56 11/25/19 24 11/25/2023 psych iatri c evalu ation * No observ ation record ed. [email or web address] [facility] [address] [facility] [address], [place], [address], 11/26/2023 15:31:09 01/03/20 24 01/03/2024 DEXA No observ ation record ed. [email or web address] Noemi Snell MD [address] [place], [address], 01/10/2024 08:08:48 06/07/20 24 06/07/2024 LDCT, chest , for lung elaine posadas [address] [place] [address] Gely traore Name: RAYSA GARCÍA [facility] Gely traore : [phone] Gely traore Orderi ng Provid er: ANGEL CALLAHAN EXAM DATE: 2023 EXAM: CT CHEST LUNG NODULE SCREEN ING CLINIC AL INFORM ATION: Lung cancer screen ing. Histor y of smokin g for 41 pack years. Gely traore is a curren t smoker . TECHNI QUE: Multip le axial CT images of the chest were obtain ed withou t inject ion of IV contra st using the low-do se lung cancer screen ing protoc ol. COMPAR NICOLETTE: 2022 NODULE SEARCH : No non-ca lcifie d lung nodule was identi fied in either lung. OTHER FINDIN GS: AIRWAY S AND LUNGS: Trache a, princi pal bronch i and major bronch ial branch es are patent and normal . Biapic al fibron odular change s are again noted and are unchan ged. Emphys ematou s change s are presen t. Pleura l-pare nchyma l scarri ng is presen t in the right lung base. MEDIAS TINUM: Stable AP window lymph node noted measur ing 13 mm. Limite d evalua tion due to absenc e of IV contra st. Aorta, SVC, pulmon kitty arteri es, pulmon kitty veins and their major branch es and tribut alex are normal in calibe r. Cardia c size is normal . PLEURA AND CHEST WALL: No pleura l effusi on or mass. No chest wall abnorm ality. UPPER ABDOMI NAL ORGANS : Limite d imagin g of the upper abdome n shows benign -appea ring bilate ral renal cysts. IMPRES ADRIAN: 1. No suspic ious lung nodule s were identi fied during this screen ing CT chest. Contin ued screen ing with low-do se CT chest withou t contra st is recomm ended in one year's time. 2. Emphys aryan 3. Benign -appea ring bilate ral renal cysts FOR TRANSMISSION ENGINEER AL STATIS TICAL PURPOS E ONLY: Exam Type: Screen ing. Change : No Change . Lung-R ADS Catego ry: Lung-R ADS catego ry 1 Lung-R ADS Modifi er: None Recall Interv al: Contin ue screen ing in 1 Year. Recomm ended Exam at Recall : CT Chest Lung Nodule Screen ing Interp reted By: Sultana Paulino MD Electr onical ly Signed By: Sultana Paulino MD on 2023 1:43 PM [email or web address] [facility] [address] , [place], [address], 06/08/2024 08:18:04 06/26/20 24 06/26/2024 MAMMO , scree ray, tomos ynthe sis, bilat eral, w/ CAD [address] [place] [address] Patien t Name: RAYSA GARCÍA [facility] Patien t : 947 Age: 78 years Gely traore Orderi ng Provid er: ANGEL CALLAHAN EXAM DATE: 2023 EXAM: MG SCREEN ING SAMANTHA MAMMOG JORGE INDICA TION: Routin e screen ing. High Risk. Family histor y of breast cancer . 24.83% TC Life Time Breast Cancer Risk PROCED URE: Multis lice imagin g of both breast s was perfor med in standa rd projec tions using Hologi c Seleni a Dimens ions tomosy nthesi s equipm ent (3D mammog cal) . 2D images were create d from the 3D datase t using C-View softwa re. The study was read with the assist ance of Comput er Aided Detect ion (CAD) softwa re. COMPAR NICLOETTE: This was compar ed with previo us mammog donnell dated 2022, 2021, 2020 FINDIN GS: The breast s are hetero geneou sly dense, which may obscur e small masses . There is no suspic ious mass, suspic ious microc alcifi cation s or lara ectura l distor tion. Benign findin gs noted. There has been no signif icant change . IMPRES ADRIAN: BI-RAD S catego ry 2, Benign . 1. There is no eviden ce of malign trudi. Screen ing mammog donnell are recomm ended in one year. 2. This patien t's calcul ated lifeti me risk of develo ping breast cancer is higher than 20% using the jimen t Tyrer- Cuzick risk-a ssessm ent model (versi on 8: densit y-info rmed score) . Adjunc tive screen ing is recomm ended with breast MRI per Americ an Cancer Societ y guidel bert. Result s were mailed or given to the patien t. Interp reted By: Berto Hagen Electr onical ly Signed By: Berto Hagen on 024 2:31 PM [email or web address] [facility] [address] [place] [address] , [place], [address], 06/27/2024 15:44:46 08/03/19 25 07/31/2024 MRI, breas t, bilat eral, w/wo contr ast [facility] [address] [place] [address] Patisky t Name: RAYSA Hong t : 947 Age: 78 years Patien t Orderi ng Provid er: ANGEL ISAC EXAM DATE: 2024 EXAM: MR LEELA BREAST W/WO CONTRA ST HISTOR Y: 78-yea r-old female . High risk screen ing. PROCED URE: MRI of the breast s. COMPAR NICOLETTE: Screen ing mammog jorge 024 The patien t did not requir e sedati on for this exam. No POC testin g for eGFR was perfor med due to absenc e of risk factor s. TECHNI QUE: MRI of the breast s was perfor med with standa rd depart mental protoc ol includ ing imagin g before and after admini strati on of 7.[address] intrav enous gadoli nium contra st accord ing to the [facility] cturer 's weight -based algori thm for contra st dosage . ([facility] [place] [address]- [phone] ). Maximu m intens ity projec tion images and 3-D reform atted images were create d for furthe r evalua tion. Additi onally dynami c contra st enhanc ement was evalua jose l with the help of CADstr eam postpr ocessi ng softwa re. FINDIN GS: Adequa te bolus of contra st is presen t in the heart. There is hetero geneou sly dense breast tissue with minima l symmet miguelito backgr ound parenc hymal enhanc ement. RIGHT BREAST : There is no suspic ious enhanc ing mass or area of non mass enhanc ement identi fied. LEFT BREAST : There is no suspic ious enhanc ing mass or area of non mass enhanc ement identi fied. Loop record er is noted in the medial left chest wall Axilla ry and biology internship al mammar y lymph nodes are morpho logica lly normal bilate rally. No abnorm ality in the visual ized chest or upper abdome n. IMPRES ADRIAN: No MR patria ce of malign trudi. BI-RAD S Catego ry 1, Negati ve, routin e follow -up. The patien t has been entere d into an automa jose l remind er system . The patien t has been entere d into an automa jose l remind er system . Interp reted By: Ewa martinez MD Electr onical ly Signed By: Ewa martinez MD on 025 4:48 PM [email or web address] [facility] [address], [address], 08/03/2024 23:44:15 11/03/19 25 10/31/2024 ankle brach ial index No observ ation record ed. [email or web address] Not Available 2024 13:03:59 11/03/19 25 10/31/2024 ankle brach ial index No observ ation record ed. [email or web address] Not Available 2024 11:09:46 01/06/20 25 01/02/2025 ankle brach ial index No observ ation record ed. [email or web address] Not Available 01/05 08:54:31 01/06/20 25 01/02/2025 vascu lar exami natio n (PROC ) No observ ation record ed. [email or web address] Not Available 2024 11:57:47 01/06/20 25 01/02/2025 (LASHON) ankle brach ial index * No observ ation record ed. [email or web address] Not Available 2024 11:57:20 01/06/20 25 01/02/2025 US, duple x, arter ial, lower extre mity, compl ete No observ ation record ed. [email or web address] Not Available 01/05 16:41:32 Result Notes Documentation Provider Name and Address Organization Details Recorded Time Dexa : [facility] [address] [place] [id number] PRICE (id #[id number], : 1945) [address] [address] Date: 4RE: Deidra Price, : 1945, PT ID #[id number] Bora Callahan PA-C, I would like to thank you for referring Deidra Price to our practice for consultation and evaluation. I have enclosed a copy of the office evaluation for your records. Sincerely, Electronically Signed by: NOEMI SNELL, MDProcedure DocumentationDXA Low Bone Mass 2 - Tx:Bone Densitometry Report Dual Energy X-Ray Absorptiometry (DXA)Follow-up bone mineral density measurement was performed on a Hologic QDR-4500C scanner with good technique. Ordering Provider RILEY Briggs Indications for the study:1. Post-menopausal state/osteopenia/parental hip fracture The L1-L2-L3 lumbar spine bone density scan demonstrates lumbar spine T-score of -1.6, Z-score of 0.8, BMD 0.837 g/cm . Additionally, there has been a -7.3% decrease in bone density over the lumbar spine when compared to the patient's previous examination on 09/03/2021. The left hip bone density scan demonstrates a femoral neck T-score of -2.2, Z-score of -0.1, BMD 0.600 g/cm . The total left hip T-score of -2.2, Z-score of -0.3, BMD 0.674 g/cm . Additionally there has been a no statistically significant change in bone density over the left total hip and a -5.3% decrease in bone density over the femoral neck when compared to the previous bone density measurement on 07/03/2022.IMPRESSION: Low bone mass (osteopenia) as demonstrated by bone density measurements on ibandronate.10 year probability of fracture risk usingAs perNational Osteoporosis Foundation 2014,postmenopausal women and men age 50 and older presenting with any the following should be considered for treatment: A hip or vertebral (clinical or morphometric) fracture or T-score = -2.5 at the femoral neck or spine after appropriate evaluation to exclude secondary causes or Low bone mass (T-score between -1.0 and -2.5 at the femoral neck or spine) and a 10-year probability of a hip fracture = 3% or a 10-year probability of a major osteoporosis-related fracture = 20% based on the [place]-adapted WHO algorithm RECOMMENDATIONS:1. Any further pharmacologic therapy in the form of oral bisphosphonate therapy if clinically appropriate as per the referring provider. Consider bisphosphonate drug holiday after 3-5 years of therapy to be determined based on bone density and other fracture risk factors as appropriate per referring provider 2. Ensure adequate calcium and vitamin D intake (1200 mg elemental calcium daily and 2000 IU Vit D daily) if this is clinically appropriate. Keep active vitamin D level >30 ng/mL. 3. Encourage practices to help increase bone density (i.e., resistance/weight bearing exercise 3x weekly) if it could be done safely. 4. Discourage practices that would compromise bone density quality (i.e. smoking, excessive alcohol consumption, and caffeine consumption) when applicable. 5. Follow bone density after 1-2-year or as per referring provider, utilizing the same scanning equipment to ensure stability or reliability. 6. Fall prevention. Zoila Sevilla [facility] 01/10/2024 08:08:48 Ldct, Chest, For Lung Cancer Screening : [facility] [address] [place] [address] Patient Name: DEIDRA PRICE Patient : 1945 Patient Ordering Provider: ANGEL CALLAHAN EXAM DATE: 06/07/2024 EXAM: CT CHEST LUNG NODULE SCREENING CLINICAL INFORMATION: Lung cancer screening. History of smoking for 41 pack years. Patient is a current smoker. TECHNIQUE: Multiple axial CT images of the chest were obtained without injection of IV contrast using the low-dose lung cancer screening protocol. COMPARISON: 05/11/2023 NODULE SEARCH: No non-calcified lung nodule was identified in either lung. OTHER FINDINGS: AIRWAYS AND LUNGS: Trachea, principal bronchi and major bronchial branches are patent and normal. Biapical fibronodular changes are again noted and are unchanged. Emphysematous changes are present. Pleural-parenchymal scarring is present in the right lung base. MEDIASTINUM: Stable AP window lymph node noted measuring 13 mm. Limited evaluation due to absence of IV contrast. Aorta, SVC, pulmonary arteries, pulmonary veins and their major branches and tributaries are normal in caliber. Cardiac size is normal. PLEURA AND CHEST WALL: No pleural effusion or mass. No chest wall abnormality. UPPER ABDOMINAL ORGANS: Limited imaging of the upper abdomen shows benign-appearing bilateral renal cysts. IMPRESSION: 1. No suspicious lung nodules were identified during this screening CT chest. Continued screening with low-dose CT chest without contrast is recommended in one year's time. 2. Emphysema 3. Benign-appearing bilateral renal cysts FOR INTERNAL STATISTICAL PURPOSE ONLY: Exam Type: Screening. Change: No Change. Lung-RADS Category: Lung-RADS category 1 Lung-RADS Modifier: None Recall Interval: Continue screening in 1 Year. Recommended Exam at Recall: CT Chest Lung Nodule Screening Interpreted By: Sultana Paulino MD Zoila sandoval [facility] 06/08/2024 08:18:04 Mammo, Screening, Tomosynthesis, Bilateral, W/ Cad : [facility] [address] [place] [address] Patient Name: DEIDRA PRICE Patient : 1945 Age: 78 years Patient Ordering Provider: ANGEL CALLAHAN EXAM DATE: 06/26/2024 EXAM: MG SCREENING SAMANTHA MAMMOGRAM INDICATION: Routine screening. High Risk. Family history of breast cancer. 24.83% TC Life Time Breast Cancer Risk PROCEDURE: Multislice imaging of both breasts was performed in standard projections using [employer] Dimensions tomosynthesis equipment (3D mammography). 2D images were created from the 3D dataset using C-View software. The study was read with the assistance of Computer Aided Detection (CAD) software. COMPARISON: This was compared with previous mammograms dated 06-04-2023, 03-04-2022, 02-18-2021 FINDINGS: The breasts are heterogeneously dense, which may obscure small masses. There is no suspicious mass, suspicious microcalcifications or architectural distortion. Benign findings noted. There has been no significant change. IMPRESSION: BI-RADS category 2, Benign. 1. There is no evidence of malignancy. Screening mammograms are recommended in one year. 2. This patient's calculated lifetime risk of developing breast cancer is higher than 20% using the current Tyrer-Cuzick risk-assessment model (version 8: density-informed score). Adjunctive screening is recommended with breast MRI per [place] [employer] guidelines. Results were mailed or given to the patient. Interpreted By: Vivienne Hagen [facility] 06/27/2024 15:44:46 Mri, Breast, Bilateral, W/wo Contrast : [address] [address] Patient Name: DEIDRA PRICE Patient : 1945 Age: 78 years Patient Ordering Provider: ANGEL CALLAHAN EXAM DATE: 07/31/2024 EXAM: MR LEELA BREAST W/WO CONTRAST HISTORY: 78-year-old female. High risk screening. PROCEDURE: MRI of the breasts. COMPARISON: Screening mammogram 06/26/2024 The patient did not require sedation for this exam. No POC testing for eGFR was performed due to absence of risk factors. TECHNIQUE: MRI of the breasts was performed with standard departmental protocol including imaging before and after administration of 7.5 mL of Gadavist intravenous gadolinium contrast according to the ict programmer's weight-based algorithm for contrast dosage. ([facility] [place] [id number]). Maximum intensity projection images and 3-D reformatted images were created for further evaluation. Additionally dynamic contrast enhancement was evaluated with the help of [employer] postprocessing software. FINDINGS: Adequate bolus of contrast is present in the heart. There is heterogeneously dense breast tissue with minimal symmetric background parenchymal enhancement. RIGHT BREAST: There is no suspicious enhancing mass or area of non mass enhancement identified. LEFT BREAST: There is no suspicious enhancing mass or area of non mass enhancement identified. Loop recorder is noted in the medial left chest wall Axillary and internal mammary lymph nodes are morphologically normal bilaterally. No abnormality in the visualized chest or upper abdomen. IMPRESSION: No MR evidence of malignancy. BI-RADS Category 1, Negative, routine follow-up. The patient has been entered into an automated reminder system. The patient has been entered into an automated reminder system. Interpreted By: Ewa Varghese MD L CALLAHAN PA-C [address] [place] [address], [phone], [facility] 08/03/2024 23:44:15 Problems Name Problem SNOMED Code Status Onset Date Resolution Date Notes Provider Name and Address Organization Details Recorded Time Periphera l vascular disease 395455178 Active 2016 Arterial ultrasoun d both lower extremiti es by Dr. Reza 11/25/2023 showed moderate occlusive disease in the right lower extremity and mild occlusive disease in the left lower extremity noted also on arterial Doppler right lower extremity 10/27/2023 -Dr. Reza. 08/17/22-r =severele ft -milddr eliot RIZO MD [address] [place] [address], [phone], [facility] 4 15:23:25 Tobacco dependenc e syndrome 30740145 Active 2016 Stefania Gonsalo [facility] 4 09:42:31 Hyperlipi demia 31740799 Active 2016 Zoilafavian Ordoñez [facility] 4 09:59:37 Chronic obstructi ve pulmonary disease 01697172 Active 2018 Stefania Brush [facility] 4 09:42:31 Nicotine dependenc e 53949633 Active 2020 Zoilafavian Ordoñez [facility] 4 09:59:37 Coronary arteriosc lerosis 95093743 Active 2021 Stefania Gonsalo [facility] 4 09:42:31 Osteopeni a 286962504 Active 2021 Zoilafavian Ordoñez [facility] 4 09:59:37 History of colonosco py 533828918698 Active 2021 Zoilafavian Ordoñez [facility] 4 09:59:38 Eczema 04683411 Active 2021 Zoila Tiago [facility] 4 09:59:37 Chronic kidney disease stage 3A 546599370 Active 2022 Zoila Tiago [facility] 4 09:59:37 Near syncope 597077299 [facility] 2022 [facility] 4 09:59:37 Idiopathi c periphera l neuropath y 15416215 Active 2022 [facility] [facility] 4 09:59:37 Long-term current use of anticoagu lant 038553648 Active 2022 [facility] 4 09:59:37 Malnutrit ion (calorie) 227619957 Active [facility] 4 09:59:37 Microscop ic colitis 285656032 Active 2022 [facility] 4 09:59:37 Iron deficienc y anemia 36370345 Active 2023 ANGEL CALLAHAN PA-C [address] [place], [address], [facility] 4 16:11:38 Atrial fibrillat ion 18167942 Active 2023 ANGEL CALLAHAN PA-C [address] [place], [address], [facility] 4 16:11:38 Hypercoag ulability state 08997225 Active 2023 ANGEL CALLAHAN PA-C [address] [place], [address], [facility] 4 16:11:38 History of syncope 159013747988 109 Active 2024 ANGEL CALLAHAN PA-C [address] [place], [address], [facility] 5 16:23:35 Hypertens pacheco disorder 20657296 Active 2014 From Automated Load;Prov ider: Rekhraj, Cr;St atus: Active Stefania Brush [facility] 4 09:42:31 Problem Notes None recorded. Procedures Surgical History Date Name Laterality Status Provider Name and Address Organization Details Recorded Time 12/08/19 25 Cerumen removal - Irrigation, Unilateral completed ANGEL CALLAHAN PA-C [facility] [place], [address], [facility] 12/07/2024 14:04:30 01/03/20 24 DXA Low Bone Mass 2 - Tx completed NOEMI SNELL MD [address] [place] [address], [address], [facility] 01/03/2024 16:21:33 11/12/19 24 TCM completed Jenny Story [facility] 11/11/2023 07:29:34 08/18/19 24 Destruction BN Lesions completed Winter Osborne [facility] 08/18/2023 14:24:56 09/10/19 23 TCM completed ANGEL CALLAHAN PA-C [address] [place], [address], [facility] 09/02/2022 15:23:29 06/08/20 22 EKG completed LUCA LEUNG PA-C [address] [place] [address], [address], [facility] 06/08/2022 15:49:40 05/27/20 22 Destruction Premalignant Lesion(s) completed Sherice Hema [facility] 05/27/2022 13:49:55 02/13/20 Tobacco Cessation Counseling; 3-10 mins completed RADHA TOLENTINO DO [address] [place] [address], [address], [facility] 02/12/2022 14:57:11 09/03/19 22 DXA Low Bone Mass 2 - Tx completed NOEMI SNELL MD [address] [place] [address], [address], [facility] 09/03/2021 16:01:11 06/09/20 21 EKG completed LUCA LEUNG PA-C [address] [place], [address], [facility] 06/09/2021 16:49:56 06/28/20 20 EKG completed LUCA LEUNG PA-C [address] [place], [address], [facility] 06/28/2020 12:24:27 04/09/20 20 Electromyography (EMG) with Nerve Conduction Study (NCV) completed Ingrid Moss (Camille) [facility] 04/09/2020 12:55:51 03/14/20 19 DXA Low Bone Mass 2 - Tx completed NOEMI SNELL MD [address] [place] [address], [address], [facility] 03/14/2019 16:38:02 03/07/20 19 Stress Test - Nuclear Lexiscan completed CR KING MD [address] [place] [address], [address], [facility] 03/07/2019 12:15:56 02/23/20 19 Cerumen removal - Instruments, Bilateral completed ALIREZA RAHMAN PA-C [address] [place], [address], [facility] 02/23/2019 05:42:41 12/27/19 19 Echocardiogram completed YULISSA KINCAID MD [address] [place] [address], [address], [facility] 12/26/2018 09:53:18 12/21/19 19 VAS - [place] [address] [place] [address], [phone], [facility] 12/20/2018 12:51:36 12/21/19 19 EKG completed LUCA LEUNG PA-C [address] [place], [address], [facility] 12/20/2018 12:43:33 10/21/19 19 VAS - Art Dup - Lower Extremity completed HUSSEIN BINGHAM MD [address] [place], [address], [facility] 10/20/2018 15:00:31 10/21/19 19 EKG completed LUCA LEUNG PA-C [address] [place], [address], [facility] 10/20/2018 14:40:00 04/19/20 18 Stress Test - Nuclear completed CR KING MD [address] [place], [address], [facility] 04/19/2018 15:40:42 10/21/19 18 EKG completed LUCA LEUNG PA-C [address] [place], [address], [facility] 10/20/2017 13:55:52 04/21/20 17 VAS - Art Dup - Lower Extremity completed CR KING MD [address] [place], [address], [facility] 04/21/2017 15:43:54 04/21/20 17 EKG completed LUCA LEUNG PA-C [address] [place], [address], [facility] 04/21/2017 14:41:51 10/13/19 17 EKG completed LUCA LEUNG PA-C [address] [place], [address], [facility] 10/12/2016 11:45:52 femoral artery bypass completed Dalia Richard [facility] 08/31/2024 13:27:36 Cholecystectomy completed [facility] 09/08/2016 08:23:42 Cardiac Surgery completed [facility] 09/08/2016 08:23:53 Remove tonsils and adenoids completed [facility] 09/08/2016 08:23:59 Other completed [facility] 09/08/2016 08:24:07 Imaging Results None recorded. Procedure Notes None recorded. Medical Equipment Implant MINDY Issuing Agency Serial Number Lot Number Status Provider Name and Address Organization Details Recorded Time [employer] FDA [id number] Y Jennifer Jean Carlos sandoval [facility] 04/06/2019 17:20:02 Allergies Allergen ID Allergen Name Allergen Category Reaction Reaction Severity Criticality Documentation Date Start Date Code Code System Note Provider Name and Address Organization Details Recorded Time 145527 acetamino phen / hydrocodo ne medicatio n Not available Not available Not available 06/11/20162012 07126 2 RxNorm updat ed 8-201 9 Susannah geiger [facility] 9 08:25:28 295025 Keflex medicatio n Not available Not available Not available 06/11/20162010 10583 7 RxNorm updat ed 8-201 9 Susannah geiger [facility] 9 08:25:22 773104 codeine medicatio n Not available Not available Not available 06/11/20162010 2670 RxNorm updat ed 8-201 9 Susannah geiger [facility] 9 08:25:16 725895 Product containin g penicilli n (product) medicatio n Not available Not available Not available 03/07/2019 84920 8001 SNOMED updat ed 8-201 9 Susannah geiger [facility] 9 10:17:08 263983 Medicinal product containin g cephalosp clare and acting as antibacte rial agent (product) medicatio n Not available Not available Not available 03/07/2019 13599 9009 SNOMED Susannah geiger [facility] [place] 9 10:17:26 [id number] cephalexi n medicatio n Not available Not available Not available 06/15/2022 2231 RxNorm Stefania Brush [facility] [place] 2 15:53:28 Medications Name Sig Start Date Stop [...] height Body mass index (BMI) Body weight Systolic And Diastolic Provider Name and Address Organization Details Last Updated DateTime 08/31/2024 162.56 cm 21.5 kg/m2 25149.05 g 112/62 mm[Hg] Daliamary Richard [facility] 08/31/2024 13:31:08 Date Recorded Body height Body mass index (BMI) Body weight Heart rate Systolic And Diastolic Provider Name and Address Organization Details Last Updated DateTime 12/06/2023 162.56 cm 19.9 kg/m2 47820.71 g 62 /min 148/60 mm[Hg] Tuyet Teran [facility] 12/06/2023 13:38:07 Date Recorded Body height Body mass index (BMI) Body weight Heart rate Systolic And Diastolic Provider Name and Address Organization Details Last Updated DateTime 12/07/2024 162.56 cm 20.8 kg/m2 84750.68 g 66 /min 123/50 mm[Hg] Tuyet Teran [facility] 12/07/2024 13:01:53 Date Recorded Body height Body mass index (BMI) Body weight Heart rate Systolic And Diastolic Provider Name and Address Organization Details Last Updated DateTime 06/09/2024 162.56 cm 20.8 kg/m2 63485.68 g 77 /min 117/61 mm[Hg] Tuyet Teran [facility] 06/09/2024 13:03:17 Social History Question Answer Notes LastModified by Organizat ion Details LastModified Time Tobacco Smoking Status Former Smoker Tuyet Teran [facility] [place] 12/06/2023 13:35:13 How Much Tobacco Do You Chew? None Information not available 10/20/2018 Which Illicit Or Recreational Drugs Have You Used? No Illicit Drug Use Per Patient [email or web address] Information not available 10/20/2018 Marital Status Trav [email or web address] Informatio n not available 02/28/2020 What Was The Date Of Your Most Recent Tobacco Screening? 03/03/2023 Information not available 03/03/2023 What Is Your Relationship Status? [email or web address] Information not available 06/09/2021 How Much Tobacco Do You Smoke? 1 PPD Information not available 09/08/2016 Has Tobacco Cessation Counseling Been Provided? Yes [email or web address] Information not available 05/17/2017 On What Date Was Tobacco Cessation Counseling Provided? 03/03/2023 Information not available 03/03/2023 How Many Years Have You Smoked Tobacco? 40 Information not available 09/08/2016 Have You Recently Traveled Abroad? No [email or web address] Information not available 06/09/2021 Sex: Unknown Functional Status Question Answer Note LastModified by Organizat ion Details LastModified Time What is your level of alcohol consumption? Occasional [email or web address] Information not available 10/20/2018 Do you or have you ever used smokeless tobacco? Never used smokeless tobacco [email or web address] Information not available 02/22/2019 What is your occupation? retired [email or web address] Information not available 10/20/2018 Do you or have you ever used e-cigarettes or vape? Never used electronic cigarettes Information not available 02/22/2019 Mental Status None [...] N Atrial Fibrillation N Hiatal hernia N Tuberculosis N AIDS/HIV N Black Lung N Cancer N Thyroid Problems N Stroke N Asthma Y Lung Disease N Peripheral Vascular Disease N Nervous Illness N Vascular Disease N Jaundice N Warfarin Management N Ulcers N Heart Disease N Hypertension Y Gynecological HistoryNo gynecological history recorded. Obstetrics History GPAL:G 0 P 0 0 0 0 Immunizations Vaccine Type Date Status Note Provider Nam e and Address Organization Details Recorded Time Influenza, adjuvanted, quadrivalent, PF completed Tuyet sandoval [facility] 04/24/2021 13:09:58 Pneumococcal conjugate PCV15, polysaccharide NVA135 conjugate, adjuvant, PF 2 [facility] 13:37:09 COVID-19, mRNA, LNP-S, bivalent, PF, 50 mcg/0.5 mL or 25mcg/0.25 mL dose 2 completed ANGEL CALLAHAN PA-C [address] [place], [address], [facility] 04/30/2022 14:31:48 Influenza, adjuvanted, quadrivalent, PF 2 completed ANGEL CALLAHAN PA-C [address] [place], [address], [facility] 04/30/2022 14:31:48 pneumococcal polysaccharide PPV23 3 completed ANGEL CALLAHAN PA-C [address] [place], [address], [facility] 11/04/2022 14:23:11 COVID-19, mRNA, LNP-S, PF, 100 mcg/0.5mL dose or 50 mcg/0.25mL dose 1 completed Not Available [facility] 08/24/2023 09:44:26 COVID-19, mRNA, LNP-S, PF, 100 mcg/0.5mL dose or 50 mcg/0.25mL dose 1 completed Not Available [facility] 08/24/2023 09:44:26 Influenza, high-dose, quadrivalent, PF 3 [facility] 05[facility]05[facility]23 15:14:54 COVID-19, mRNA, LNP-S, PF, 50 mcg/0.5 mL 3 [facility]23 15:14:55 Tdap 4 [facility] 12/06/2023 14:50:04 zoster recombinant 4 [facility] 12/06/2023 14:50:05 COVID-19, mRNA, LNP-S, PF, 100 mcg/0.5mL dose or 50 mcg/0.25mL dose 1 completed Not Available [facility] 08/24/2023 09:44:26 COVID-19, mRNA, LNP-S, PF, 100 mcg/0.5mL dose or 50 mcg/0.25mL dose 2 completed Not Available [facility] 08/24/2023 09:44:26 RSV, recombinant, protein subunit RSVpreF, adjuvant reconstituted, 0.5 mL, PF 4 [facility] 06/09/2024 15:23:41 Influenza, high-dose, trivalent, PF 4 [facility] 06/09[facility]24 15:23:42 zoster recombinant 5 [facility] 12[facility]07/[facility] 14:39:24 Past Encounters Encounter ID Performer Location Encounter Start Date Encounter Closed Date Diagnosis/Indication Diagnosis SNOMED-CT Code Diagnosis ICD10 Code Diagnosis Note [id number] LUCA LEUNG PA-C CARDIOLOG Y [address] ,[address]LO[address] [place] [address] 5 10/12/2016 10:40:48 10/13/2016 09:32:41 Coronary arteriosclerosis in [place] artery 7312144865 107 I25.10 Peripheral vascular disease 674654935 I73.9 6 mo c arterial duplex Tobacco de pendence syndrome 34756518 F17.290 Hypertensive disorder 38 022382 I10 Hyperlipidemia 08788231 E78.5 [id number] LUCA LEUNG PA-C [address]IOLOG [facility] [address] [place] [address] 04/21/2017 12:39:24 04/21/2017 15:44:23 Coronary arteriosclerosis in [place] artery 4567284595 107 I25.10 Peripheral vascular disease 156997782 I73.9 6 mo c arterial duplex Tobacco de pendence syndrome 09567976 F17.200 Hyperlipidemia 41163195 E78.5 [id number] CR KING MD [facility] [address] [place] [address] [place] [address] 04/21/2017 12:40:26 04/21/2017 14:14:41 Peripheral vascular disease with rest pain 087920190 R52 Peripheral vascular disease 304342953 I73.9 [id number] LUCA LEUNG PA-C CARDIOLOG Y [address] [place],[address] [place] [address] 5 10/20/2017 13:03:50 10/20/2017 14:32:29 Coronary arteriosclerosis in [place] artery 1445747114 107 I25.10 Peripheral vascular disease 623078131 I73.9 Tobacco de pendence syndrome 87947415 F17.290 Hypertensive disorder 38 566599 I10 Hyperlipidemia 48956237 E78.5 [id number] CR KING MD [facility] [address] [place] [address] 5 04/19/2018 12:09:43 04/19/2018 15:43:41 Coronary arteriosclerosis in [place] artery 6342733913 107 I25.10 [id number] LUCA LEUNG PA-C CARDIOLOG Y [address] [place],[address] [place] [address] 5 04/19/2018 12:10:18 04/19/2018 16:04:42 Coronary arteriosclerosis in [place] artery 1844123229 107 I25.10 Peripheral vascular disease 580329636 I73.9 Tobacco de pendence syndrome 86967146 F17.290 Hypertensive disorder 38 571684 I10 Hyperlipidemia 35004980 E78.5 [id number] LUCA LEUNG PA-C CARDIOLOG Y [address] [place],[address] [place] [address] 5 10/20/2018 12:52:50 10/20/2018 14:42:22 Coronary arteriosclerosis in [place] artery 4813271558 107 I25.10 Peripheral vascular disease 301380934 I73.9 Tobacco de pendence syndrome 17678579 F17.290 Hypertensive disorder 38 388417 I10 Hyperlipidemia 74894703 E78.5 [id number] HUSSEIN BINGHAM MD [facility] [address] [place] [address] [place] [address] 5 10/20/2018 12:57:58 10/21/2018 14:45:35 Peripheral vascular disease 781981190 I73.9 [id number] LUCA LEUNG PA-C CARDIOLOG Y [address] [place],[address] [place] [address] 12/20/2018 08:19:03 12/20/2018 12:48:43 Near syncope 521260845 R55 Coronary arteriosclerosis in [place] artery 4544949485 107 I25.10 Tobacco de pendence syndrome 91939140 F17.290 Peripheral vascular disease 194133242 I73.9 [id number] CR KING MD [facility] [address] [place] [address] [place] [address] 12/20/2018 09:09:01 12/22/2018 08:51:18 Carotid bruit 739168454 R09.89 [id number] SULTANA MOJICA MD [facility] [address] [place],[address] [place] [address] 5 12/20/2018 09:31:32 12/20/2018 09:31:46 Syncope 919303695 R55 [id number] YULISSA KINCAID MD [facility] [address] [place] [address] [place] [address] 12/26/2018 08:46:36 12/27/2018 07:57:50 Coronary arteriosclerosis in [place] artery 9295346160 107 I25.10 [id number] LUCA LEUNG PA-C CARDIOLOG Y [address] [place],[facility] FLOOR [place] [address] 5 01/20/2019 10:42:53 01/20/2019 12:33:20 Hyperlipidemia 97966495 E78.5 Near syncope 030467655 R 55 Coronary arteriosclerosis in [place] artery 4309336429 107 I25.10 Tobacco de pendence syndrome 42020911 F17.290 Peripheral vascular disease 763541598 I73.9 [id number] ALIREZA RAHMAN PA-C [facility] [address] [address] 02/22/2019 12:33:45 02/23/2019 08:47:16 Essential hypertension 33823106 I10 Coronary arteriosclerosis in [place] artery 5056042618 107 I25.10 Peripheral vascular disease 678880512 I73.9 Hyperlipidemia 85810845 E78.5 Tobacco user 731910201 Z 72.0 Adult heal th examination 272915984 Z00.00 Near syncope 667758583 R 55 she had cardiac eval back in december she had another minor episode yesterday cardiology notes show for her to follow back up with anymore episodes- considerin g loop recorder or cath- may needs neuro workup To ER with any further episodes Hypercalcemia 08604899 E 83.52 Chronic ob structive pulmonary disease 39698271 J44.9 Routine gy necologic examination done 0982794864 9101 Z01.419 Osteopenia 000887937 M85 .80 History of smoking 96927 46253 2790620 Z87.891 Impacted c erumen of bilateral ears 5633518966 127966 H61.23 Otitis externa 2671506 H 60.90 [id number] CR KING MD [facility] [address],[facility] FLO[address] [place] [address] 5 03/07/2019 07:46:14 03/07/2019 13:09:12 Coronary arteriosclerosis in [place] artery 7377208418 107 I25.10 [id number] LUCA LEUNG PA-C CARDIOLOG Y [address] [place] [address] 5 03/09/2019 12:31:40 03/09/2019 15:40:41 Near syncope 460534937 R55 Hypertensive disorder 38 288003 I10 [id number] NOEMI SNELL MD [facility] [address] [place] [address] 03/14/2019 15:19:14 03/14/2019 15:38:21 Osteopenia 254168258 M85.9 [id number] ALIREZA RAHMAN PA-C FAMILY [address] [place] [address] 5 04/12/2019 10:58:04 04/12/2019 13:10:09 Osteopenia 814827602 M85.80 advised 1200 mg calcium + 1000-2000I U vit d Tobacco user 140206551 Z 72.0 [id number] LUCA LEUNG PA-C [facility]ARDIOLOG Y [address] [place] [address] 5 04/28/2019 11:04:48 04/28/2019 12:51:10 Near syncope 625042996 R55 Medtronic loop recorder interrogat ion no episodes no changes Hypertensive disorder 38 836531 I10 [id number] ALIREZA RAHMAN PA-C FAMILY [address] [place] [address] 5 08/28/2019 10:39:17 08/28/2019 12:45:04 Adult health examination 500690127 Z00.00 Hyperlipidemia 40325015 E78.5 ldl not to goal per last lipid labs Coronary arteriosclerosis in [place] artery 0210089740 107 I25.10 followed by cardiology Hypertensive disorder 38 090936 I10 stable Screening for malignant neoplasm of breast 270228118 Z12.39 Hypercalcemia 61666226 E 83.52 [id number] LUCA LEUNG PA-C CARDIOLOG Y [address] ,[address] [place] [address] 12/26/2019 14:41:48 12/26/2019 16:18:22 Coronary arteriosclerosis in [place] artery 0091140701 107 I25.10 Hyperlipidemia 56554963 E78.5 Hypertensive disorder 38 296763 I10 [id number] ANGEL CALLAHAN PA-C [facility] [address] [place] [address] 02/26/2020 12:50:40 02/26/2020 14:26:06 Adult health examination 940811116 Z00.00 Hypertensive disorder 38 771353 I10 stable Hyperlipidemia 40458136 E78.5 Coronary arteriosclerosis in [place] artery 1957501496 107 I25.10 stable. sees cardiology Hypercalcemia 07194083 E 83.52 Peripheral vascular disease 324413549 I73.[address] Reza Chronic ob structive pulmonary disease 56437281 J44.9 stable off inhalers Osteopenia 519463317 M85 .80 on boniva. repeat DEXA next year. Tobacco user 351990532 Z 72.0 smoking cessation encouraged Screening for malignant neoplasm of colon 357411117 Z12.[address] Baird last year. pt is going to call and schedule. [id number] LB PAEZ MD NEUROLOGY SB CL[address]ED [address] [place] [address] 02/28/2020 09:46:22 02/28/2020 10:44:32 Paresthesia 71387340 R20.2 Neuropathy 641123401 G62 .9 [id number] LB PAEZ MD NEUROLOGY SB [address] [place] [address] 04/09/2020 12:44:31 04/09/2020 14:06:25 Paresthesia 42874811 R20.2 Neuropathy 046457877 G62 .9 [id number] LB PAEZ MD NEUROLOGY SB [address] [place] [address] 04/09/2020 12:54:41 04/09/2020 14:04:48 Paresthesia 60498846 R20.2 [id number] ANGEL CALLAHAN PA-C [address] [place] [address] 05/10/2020 09:21:27 05/10/2020 10:59:27 Coronavirus infection 000976133 B34.2 has few symptoms. only has mild dry cough, but she also smokes. has some mild nasal congestion . using zyrtec. No fever, SOA, wheezing, aches, fatigue, loss of taste/smel l, nausea. distancing from who tested negative. sleeping in separate rooms. will continue this. She is to remain in quarantine for 14 days from day she got test results (05/06). She may end quarantine on 05/20 if she has no fever. will follow up in 1 week. Osteopenia 831273153 M85 .80 requests refill of boniva. repeat DEXA next year. [id number] ANGEL CALLAHAN PA-C [address] [place] [address] 05/17/2020 10:26:56 05/17/2020 11:46:36 Coronavirus infection 179822085 B34.2 has few symptoms. only has a residual mild dry cough, but she also smokes. has some mild nasal congestion . using zyrtec. No other symptoms. She is to remain in quarantine for 14 days from day she got test results (05/06). She may end quarantine on 05/20 if she continues to have no fever. will follow prn at this point. [id number] LUCA LEUNG PA-C CARDIOLOG Y [address] ,[address] [place] [address] 06/28/2020 10:46:08 06/28/2020 12:26:07 Coronary arteriosclerosis in [place] artery 2341278609 107 I25.10 Hyperlipidemia 35155070 E78.5 Hypertensive disorder 38 919822 I10 [id number] ANGEL CALLAHAN PA-C [facility] [address] [place] [address] 10/23/2020 10:57:58 10/23/2020 11:36:41 Adult health examination 501349751 Z00.00 Hypertensive disorder 38 730729 I10 stable on lisinopril per cardiology . MA negative. Hyperlipidemia 80390846 E78.5 LDL was 73 in Feb. continue simvastati n. Coronary arteriosclerosis 56886257 I25.10 continue with cardiology . Peripheral vascular disease 707554452 I73.[address] Reza Chronic ob structive pulmonary disease 92925272 J44.9 stable off inhalers Osteopenia 033116584 M85 .80 on boniva. repeat DEXA next year. Tobacco user 870589582 Z 72.0 smoking cessation encouraged . lung cancer screening due in mar. Screening for malignant neoplasm of colon 494037544 Z12.11 [id number] LB PAEZ MD NEUROLOGY [address] [place] [address] 10/03/2020 12:57:20 10/03/2020 14:55:07 Neuropathy 215017946 G62.9 Cigarette smoker 9654146 7 F17.576 [id number] LUCA LEUNG PA-C CARDIOLOG Y [address] ,[address] [place] [address] 12/11/2020 13:00:11 12/12/2020 13:41:52 Coronary arteriosclerosis in [place] artery 5615024992 107 I25.10 The patient is doing well on current management . No new active problems identified . Chronic problems are all stable. Patient is to continue current regimen without change. All questions answered and regimen reviewed. Patient is to call for any change in status Hyperlipidemia 83315853 E78.5 continue current dose of simvastati n Hypertensive disorder 38 549000 I10 Blood pressure goals reviewed with the patient ( <140/90) encouraged regular exercise, healthy weight maintenanc e and adherence to low sodium diet (<2gm qd per AHA recommenda tions) Monitor BP's periodical ly at home. continue current dose of lisinopril Near syncope 349160390 R 55 WAFUtronic loop recorder interrogat ion no episodes no changes. Findings discussed with the patient Peripheral vascular disease 902318873 I73.9 received recent office notes from Dr. Reza. Reviewed and discussed with the patient. continue statin recurrenta nd aspirin at current dose [id number] ANGEL CALLAHAN PA-C [facility] [address] [place] [address] 04/24/2021 11:21:35 04/24/2021 12:07:49 Hypertensive disorder 01621110 I10 stable on lisinopril per cardiology . MA negative. Hyperlipidemia 20192519 E78.5 LDL was 73 in Feb. continue simvastati n. Coronary arteriosclerosis 52534634 I25.10 continue with cardiology . Peripheral vascular disease 488022675 I73.[address] Reza Chronic ob structive pulmonary disease 25268602 J44.9 stable off inhalers Osteopenia 344543521 M85 .80 on boniva. repeat DEXA. Tobacco user 344349569 Z 72.0 smoking cessation encouraged . lung cancer screening due. scheduled for today. Administra tion of influenza vaccine 26608007 Z23 [id number] LUCA LEUNG PA-C CARDIOLOG Y [address] ,[address] [place] [address] 06/09/2021 13:12:57 06/10/2021 11:26:09 Coronary arteriosclerosis in [place] artery 7939716941 107 I25.10 The patient is doing well on current management . No new active problems identified . Chronic problems are all stable. Patient is to continue current regimen without change. All questions answered and regimen reviewed. Patient is to call for any change in status Hyperlipidemia 90463907 E78.5 continue current dose of simvastati n Hypertensive disorder 38 149746 I10 Blood pressure goals reviewed with the patient ( <140/90) encouraged regular exercise, healthy weight maintenanc e and adherence to low sodium diet (<2gm qd per AHA recommenda tions) Monitor BP's periodical ly at home. continue current dose of lisinopril Near syncope 095120366 R 55 Medtronic loop recorder interrogat ion no episodes no changes. Findings discussed with the patient Peripheral vascular disease 187590956 I73.9 received recent office notes from Dr. Reza. Reviewed and discussed with the patient. continue statin recurrenta nd aspirin at current dose [id number] NOEMI SNELL MD B[facility] SB [address] [place] [address] 09/03/2021 12:59:15 09/03/2021 13:49:25 Osteoporosis 98884118 M81.0 Osteopenia 290312170 M85 .89 [id number] ANGEL CALLAHAN PA-C [address] [place] [address] 09/30/2021 10:47:50 09/30/2021 11:42:22 Diarrhea 09486048 R19.7 on and off x 1 month has had loose stool. occasional ly watery. more after eating. will have several normal days in between. check stool studies. discussed the need to update her colonoscop y as well. she wants to start with the stool studies. avoid greasy and spicy foods. [id number] LB PAEZ MD NEUROLOGY SB CL[address] [place] [address] 10/07/2021 12:43:05 10/07/2021 13:35:12 [id number] ANGEL CALLAHAN PA-C [address] [place] [address] 10/23/2021 10:50:59 10/23/2021 12:03:53 Adult health examination 246682477 Z00.00 mammo up-to-date . colonoscop y january [address] Baird due Hypertensive disorder 38 338125 I10 stable on lisinopril per cardiology . MA 20. Hyperlipidemia 80798226 E78.5 LDL was 73 in Feb. continue simvastati n. Coronary arteriosclerosis 83082151 I25.10 continue with cardiology . Peripheral vascular disease 798392859 I73.[address] Reza Chronic ob structive pulmonary disease 85569881 J44.9 stable off inhalers Osteopenia 370122181 M85 .80 on boniva. dexa in aug 2021. due to be repeated in 2 years. Tobacco de pendence syndrome 66508784 F17.290 encouraged smoking cessation. Smoking 1 and half packs per day of tobacco. Screening for malignant neoplasm of colon 285849383 Z12.[address] Baird later today. He will order updated colonoscop y. last done 2013. Administra tion of pneumococcal vaccine 95466435 Z23 [id number] LUCA LEUNG PA-C CARDIOLOG Y [address] ,[address] [place] [address] 12/09/2021 13:06:04 12/09/2021 15:19:48 Cigarette smoker 40527795 F17.210 Patient voices understand ing of consequenc es of chronic tobacco abuse Coronary arteriosclerosis in [place] artery 8468588691 107 I25.10 The patient is doing well on current management . No new active problems identified . Chronic problems are all stable. Patient is to continue current regimen without change. All questions answered and regimen reviewed. Patient is to call for any change in status Hyperlipidemia 73551858 E78.5 continue current dose of simvastati n Hypertensive disorder 38 249721 I10 Blood pressure goals reviewed with the patient ( <140/90) encouraged regular exercise, healthy weight maintenanc e and adherence to low sodium diet (<2gm qd per AHA recommenda tions) Monitor BP's periodical ly at home. continue current dose of lisinopril Near syncope 502379915 R 55 Medtronic loop recorder interrogat ion no episodes no changes. Findings discussed with the patient Peripheral vascular disease 117901072 I73.9 received recent office notes from Dr. Reza. Reviewed and discussed with the patient. continue statin recurrenta nd aspirin at current dose [id number] RADHA TOLENTINO, [facility] [address] [place] [address] 02/12/2022 14:19:05 02/12/2022 14:59:42 Hospital inpatient stay within past 30 days 8817542164 106 Z76.89 Patient was admitted at [facility] on 01/22/22 for vascular procedure to help with lower extremity claudicati on. Procedure was done by Dr. Reza. Peripheral vascular disease 364506126 I73.9 S/p stenting of infrarenal aorta and bilateral common iliac arteries on 01/22/2022. Patient no longer has claudicati on. She will continue her current dosages of aspirin and Plavix. She has a follow-up appointmen t with Dr. Grady in 05/2022. Essential hypertension 79101061 I10 BP readings at home have been less than 140/90. Blood pressure is borderline today. She will continue her current dosage of her antihypert ensive medication for now. Hyperlipidemia 66891905 E78.5 Stable. Continue current dosage of statin. Tobacco user 538822389 Z 72.0 I spent 5 minutes discussing smoking cessation with her and the risks of smoking. She is not interested in quitting at this time. Referral needed 78218375 9 Z76.89 Per patient request I have referred her to dermatolog y for a full skin exam. [id number] LB PAEZ MD NEUROLOGY SB CL[address] [place] [address] 03/04/2022 13:08:16 03/04/2022 16:04:07 Paresthesia 63220675 R20.2 [id number] PRISCILA TONYC [facility] [address] [address] 04/30/2022 12:47:53 04/30/2022 14:09:37 Adult health examination 976201151 Z00.00 mammo done feb 2022. colonoscop y done october 2021[place] [place] [address] Baird. CBC normal in november 2021. mammo normal in feb 2022. Hypertensive disorder 38 167980 I10 stable on lisinopril per cardiology . MA 20. EKG done november 2021 per cardiology . Hyperlipidemia 01361951 E78.5 LDL 83 in November 2021. continue simvastati n. Coronary arteriosclerosis 71721740 I25.10 continue with cardiology . Peripheral vascular disease 194764595 I73.9 much improved after revascular ization procedure by Dr. Reza in January (stenting on infrarenal aorta and bilateral common iliac arteries). on ASA and plavix Chronic ob structive pulmonary disease 94677367 J44.9 stable off inhalers Osteopenia 700220706 M85 .80 on boniva. dexa in aug 2021. due to be repeated in 2 years. Tobacco de pendence syndrome 53963666 F17.290 encouraged smoking cessation. Smoking 1 and half packs per day of tobacco. CT lung nodule screening done and was normal. History of colonoscopy 0958701037 09 Z98.890 colonoscop y october [address] Baird. TA x 1 and lymphocyti c colitis. tx with budesonide x 1 month with total resolution . Chronic ki dney disease stage 3 603381458 N18.30 creatinine 1.02 and GFR 57 in November. avoid nephrotoxi c agents and stay well hydrated. repeat metabolic panel. Eczema 04184360 L30.9 Eczema on the volar surface of the hands intermitte ntly for several months. Waxes and wanes. Lotion is only marginally efficaciou s. Start triamcinol one cream as directed. Administra tion of viral vaccine 74268628 Z23 [id number] WHITNEY NARVAEZ APRN DERMATOLO [facility] [address] [place] [address] 05/27/2022 13:31:32 05/27/2022 14:19:11 Solar lentiginosis 443391341 L81.4 BENIGN APPEARANCE , PT REASSUREDR E[employer]END SUN PROTECTIVE CLOTHING AND EQUATE SPORT SUNSCREEN AND CERAVE AM SUNSCREEN LOTION OTC DAILY. Raised rhys orrheic keratosis 0265231094 64256 L82.1 BENIGN APPEARANCE , PT REASSURED Multiple b enign melanocytic nevi 842716289 D22.9 BENIGN APPEARANCE , MONITOR & ADVISED TO RTC WITH ANY CHANGES Hemangioma 993928715 D18 .00 BENIGN APPEARANCE , PT REASSURED Actinic keratosis 204739 007 L57.0 CRYO X 1RISKS OF CRYO SURGERY DISCUSSED; POST OP CARE INSTRUCTIO NS PROVIDED. VERBAL CONSENT TO TREAT GIVEN BY PATIENT. LEXIS IF PERSISTING . RECOMMEND ANNUAL FSE Generalize d essential telangiectasia 069456732 I78.1 BENIGN APPEARANCE , PT REASSURED [id number] RADHA TOLENTINO, DO [facility] [address] [place] [address] 05/27/2022 14:19:25 05/27/2022 15:19:00 Dog bite 699496548 W54.0XXA Augmentin has been prescribed for her to start taking. I recommende d that she get her Tdap booster at her pharmacy. Swelling of lower leg 44 1535986 R22.40 There is swelling present in her right lower leg where she has the other dog bite. Ultrasound has been ordered to rule out a DVT. [id number] LUCA LEUNG PA-C CARDIOLOG Y [address] [place] [address] 06/08/2022 13:16:35 06/09/2022 10:08:37 Cigarette smoker 89115046 F17.210 Patient voices understand ing of consequenc es of chronic tobacco abuse Coronary arteriosclerosis in [place] artery 2635512665 107 I25.10 The patient is doing well on current management . No new active problems identified . Chronic problems are all stable. Patient is to continue current regimen without change. All questions answered and regimen reviewed. Patient is to call for any change in status Hyperlipidemia 26420380 E78.5 continue current dose of simvastati n Hypertensive disorder 38 724871 I10 Blood pressure goals reviewed with the patient ( <140/90) encouraged regular exercise, healthy weight maintenanc e and adherence to low sodium diet (<2gm qd per AHA recommenda tions) Monitor BP's periodical ly at home. continue current dose of lisinopril Near syncope 321389189 R 55 Medtronic loop recorder interrogat ion no episodes no changes. Findings discussed with the patientChan leong in 6 months Peripheral vascular disease 621635643 I73.9 received recent office notes from Dr. Reza. Reviewed and discussed with the patient. continue statin recurrenta nd aspirin at current dose. Has appointmen t with Dr. Reza office tomorrow with plans for carotid ultrasound and lower extremity arterial Dopplers with ABIs [id number] ANGEL CALLAHAN PA-C [facility] [address] [place] [facility] [place] [address] 09/10/2022 12:50:07 09/10/2022 15:08:16 Pain at rest of right lower limb due to atherosclerosis 9014762979 9556667 I70.221 Patient underwent right ilio profunda endarterec yeny (distal external iliac, common femoral, proximal profunda femoris, and proximal superficia l femoral artery) by Dr. Vasiliy collins at [place] and was hospitaliz ed from 08/31/22 through 09/01/2022. On Eliquis 5 mg twice daily and aspirin 81 mg daily. Also on atorvastat in 40 mg daily. Sees surgeon in follow up on 09/15. Peripheral vascular disease 454736934 I73.9 much improved after revascular ization procedure by Dr. Reza last January (stenting on infrarenal aorta and bilateral common iliac arteries). Tobacco de pendence syndrome 31485750 F17.290 encouraged smoking cessation. Smoking 1 and half packs per day of tobacco. Had a long discussion with patient about the importance of smoking cessation with her PVD. She has nicotine patches at home. I encouraged her to try these and discussed how to gradually step down off these. She voiced understand ing. [id number] LB PAEZ MD NEUROLOGY [facility] [address] [place] [address] 09/09/2022 12:47:38 09/14/2022 11:44:50 Paresthesia 66296388 R20.2 Paresthesi a of lower extremity 198901337 R20.2 Neuropathy 305111901 G62 .9 Long-term current use of antiplatelet drug 3847203509 11794 Z79.02 Peripheral vascular disease 605863889 I73.9 Anticoagulant therapy 18 2240894 Z79.01 Serum mary jane min B12 borderline low 677234175 R79.89 Heavy tobacco smoker 508 8458863 02678 Z72.0 [id number] ANGEL CALLAHAN PA-C FAMILY [address] [address] 11/04/2022 12:59:35 11/04/2022 14:02:35 Adult health examination 747035727 Z00.00 mammo done feb 2022. colonoscop y done october 2021-repea t in [address] Baird. Screening mammography 24 316197 Z12.31 mammo done 03/04/22-no rmal Screening for malignant neoplasm of colon 675425480 Z12.[address] Baird on 11/14/21 showed lymphocyti c colitis and sigmoid tubular adenoma-re peat in 5 years Menopausal and postmenopausal disorders 292422733 N95.8 Screening for osteoporos is done 09/13/21 and showed osteopenia . continue on Boniva. recommend 1200 mg calcium with 2000 IUs vitamin D3 daily, smoking cessation, not using ETOH or caffeine to excess, and doing weight bearing exercise for 30-60 min at least 3x/week. repeat DEXA in 08/2023. Hepatitis C screening 41 5770463 Z11.59 Has patient ever had Hep C screening? NO Nicotine dependence [address] lung nodule screening done in apr 2022 and will be repeat this coming april. continue to strongly encourage smoking cessation. Active immunization 3090 9343 Z23 Has patient had Hep B vaccine? NO Has patient had Shingles vaccine? NO discussed and recommende d Eye disord er screening 879635615 Z13.5 Has patient ever had eye/glauco ma screening? YESSees Dr. Sargent Hypertensive disorder 38 261757 I10 stable on lisinopril per cardiology . continue active mgt per cardiology . recheck metabolic panel. Hyperlipidemia 88714741 E78.5 LDL 83 in November 2021. continue simvastati n. recheck flp. Coronary arteriosclerosis 97376127 I25.10 continue active mgt per cardiology . on ASA and simvastati n. Peripheral vascular disease 931407581 I73.9 much improved after revascular ization procedure by Dr. Reza (stenting of infrarenal aorta and bilateral common iliac arteries). Patient also underwent right ilio profunda endarterec yeny (distal external iliac, common femoral, proximal profunda femoris, and proximal superficia l femoral artery) by Dr. Vasiliy Soriano [place] in Aug 2022. On Eliquis 5 mg twice daily and aspirin 81 mg daily. Also on atorvastat in 40 mg daily. continue active mgt per vascular surgery. Chronic ob structive pulmonary disease 67503966 J44.9 stable off inhalers Osteopenia 269120161 M85 .80 on boniva. dexa in aug 2021. due to be repeated in 2 years. pt also take 1200 mg of calcium and 2000 IUs of vit D3 daily and to work hard on smoking cessation. Tobacco de pendence syndrome 31450226 F17.290 encouraged smoking cessation. Has decreased smoking to 1 pack per day. Had originally been smoking 2 packs/day. Has nicotine patches at home she can try as well. Encouraged her to do so. Chronic ki dney disease stage 3A 271060324 N18.31 GFR 59 last apr and was 57 last November. avoid nephrotoxi c agents and stay well hydrated. repeat metabolic panel. Depression screening 171 845607 Z13.31 PHQ-2 is zero today. [id number] LB PAEZ MD NEUROLOGY [facility] [address] [place] [address] 03/03/2023 12:43:21 03/18/2023 04:09:42 Neuropathy 493921133 G62.9 Long-term current use of drug therapy 924976219 Z79.899 [id number] ANGEL CALLAHAN PA-C [facility] [address] [place] [address] 05/05/2023 12:42:22 05/05/2023 14:21:53 Adult health examination 380469479 Z00.00 mammo done feb 2022-due. colonoscop y done october 2021-repekarina t in [address] Baird. FSEs per dermatolog y. Hypertensive disorder 38 675361 I10 usually stable on lisinopril per cardiology . systolic BP a bit elevated. continue active mgt per cardiology . MA negative. Hyperlipidemia 77374270 E78.5 LDL 72 in october 2022. continue simvastati n. recheck flp. Coronary arteriosclerosis 74114335 I25.10 continue active mgt per cardiology . on ASA and statin. EKGs per cardiology . due for follow up. Peripheral vascular disease 723420623 I73.9 much improved after revascular ization procedure by Dr. Reza (stenting of infrarenal aorta and bilateral common iliac arteries). Patient also underwent right ilio profunda endarterec yeny (distal external iliac, common femoral, proximal profunda femoris, and proximal superficia l femoral artery) by Dr. Vasiliy Soriano wa in Aug 2022. On Eliquis 5 mg twice daily and aspirin 81 mg daily. Also on simvastati n daily. continue active mgt per vascular surgery. Chronic ob structive pulmonary disease 67522218 J44.9 stable off inhalers Osteopenia 088000995 M85 .80 on boniva. dexa in aug 2021. due to be repeated in 2 years. pt also take 1200 mg of calcium and 2000 IUs of vit D3 daily and to work hard on smoking cessation. Chronic ki dney disease stage 3A 848197930 N18.31 GFR 59 last apr and was 57 last November. avoid nephrotoxi c agents and stay well hydrated. repeat metabolic panel. Near syncope 657968872 R 55 has implantabl e loop recorder. due for cardiology follow up. has appt with Luca on 05/20/23. Screening for malignant neoplasm of breast 253444235 Z12.39 Idiopathic peripheral neuropathy 39453252 G60.9 continue active mgt per Dr. Paez, neurology. Long-term current use of anticoagulant 995051622 Z79.01 On chronic Eliquis for vascular disease. Administra tion of influenza vaccine 31673509 Z23 Administra tion of viral vaccine 49909334 Z23 Malnutriti on (calorie) 142199709 E46 Patient has protein calorie malnutriti on based on her BMI. Advised her to eat small frequent meals and snacks. Boost or Ensure would also be helpful. Nicotine dependence [address] lung nodule screening done in apr 2022 and will be repeat this coming april. continue to strongly encourage smoking cessation. still smoking 1-1 /2 ppd. Dysfunctio n of right eustachian tube 3914268311 827641 H69.91 Right eustachian tube dysfunctio n x2 to 3 weeks. No signs of infection. Pred pack as directed. Microscopic colitis 2357 60505 K52.839 Has history of microscopi c colitis. Continue active management per Dr. Baird of GI. [id number] WHITNEY NARVAEZ APRN [facility] [address] [place] [address] 08/18/2023 14:00:00 08/18/2023 14:37:27 Solar lentiginosis 450667748 L81.4 BENIGN APPEARANCE , PT REASSUREDR [employer]END SUN PROTECTIVE CLOTHING AND EQUATE SPORT SUNSCREEN AND CERAVE AM SUNSCREEN LOTION OTC DAILY. Raised rhys orrheic keratosis 7295591461 71778 L82.1 BENIGN APPEARANCE , PT REASSURED Multiple b enign melanocytic nevi 582211164 D22.9 BENIGN APPEARANCE , MONITOR & ADVISED TO RTC WITH ANY CHANGES Hemangioma 689380846 D18 .00 BENIGN APPEARANCE , PT REASSURED Generalize d essential telangiectasia 329874152 I78.1 BENIGN APPEARANCE , PT REASSURED Inflamed s eborrheic keratosis 958202044 L82.0 CRYO X 1 PT REQUEST IRRITATEDR ISKS OF CRYO SURGERY DISCUSSED; POST OP CARE INSTRUCTIO NS PROVIDED. VERBAL CONSENT TO TREAT GIVEN BY PATIENT. History of actinic keratosis 6616867744 104 Z87.2 NO EOR RECOMMEND ANNUAL FSE [id number] LB PAEZ MD NEUROLOGY [address] [place] [address] 09/02/2023 13:58:04 09/21/2023 13:35:29 Idiopathic peripheral neuropathy 25869779 G60.9 Paresthesia 29342523 R20 .2 Peripheral arterial occlusive disease 595966227 I73.9 Trying to give up smoking 058258282 Z72.0 [id number] ANGEL CALLAHAN PA-C FAMILY [address] [place] [address] 11/12/2023 14:39:45 11/12/2023 15:33:38 Ischemia of right lower extremity 6804467866 0767686 I73.89 Patient was admitted from 11/02/2023 through 11/07/2023 for acute on chronic right ischemic lower extremity. She has a history of right femoral endarterec yeny with bovine patch angioplast y and history of stenting of the infrarenal aorta and bilateral common iliac arteries, as well as right ilio profunda endarterec yeny in August 2022. She is followed by Dr. Reza. Presented with an ischemic lower limb. Underwent a iliofemora l endarterec yeny of the left common femoral artery with right femoral endarterec yeny, removal of old femoral graft in the right femoral artery, right superficia l femoral artery endarterec yeny, patch angioplast y with bovine pericardiu m of common femoral down to distal superficia l femoral artery, and left femoral to right femoral artery bypass. This was performed by Dr. Reza's partner, Dr. Vazquez. Continue active management per vascular surgery. Peripheral vascular disease 107839746 I73.9 Prior history of revascular ization procedure by Dr. Reza (stenting of infrarenal aorta and bilateral common iliac arteries). Patient also underwent right ilio profunda endarterec yeny (distal external iliac, common femoral, proximal profunda femoris, and proximal superficia l femoral artery) by Dr. Vasiliy collins in 2022. On Eliquis 5 mg twice daily and aspirin 81 mg daily. Now with revascular ization performed 11/04/2023, including bypass left femoral to right femoral artery. She was changed from simvastati n to 10 mg of lipitor per vascular surgery. continue active mgt per vascular surgery. has had some LE discomfort at hs. has tramadol to use but states she would like to try her 's Gabapentin to see if this helps more. If it does, I will prescribe this for her. Hypertensive disorder 38 770451 I10 Patient had elevated blood pressure following the revascular ization of the right limb, this was controlled with a Cardene drip. She was weaned and was remaining stable on her home medication . continues on lisinopril per cardiology . Continue active mgt per cardiology . sees Luca Leung PA-C in one week. Blood pressure has been remaining stable. 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 She had been smoking 1-1/2 packs/day of tobacco. She's now down to 2 cigarettes daily, which is great. CT lung screening in 05/11/2023 . Iron defic iency anemia 29889430 D50.9 started on ferrous sulfate 325 mg at hospital. Hemoglobin was 9.0 on 11/08/2023. This was up from 8.7 a few days prior. iron level 34 on 11/08/2023. has felt a bit of fatigue. recheck cbc in one month. I will check at [facility] in the next couple weeks. Edema of l ower extremity 344418454 R60.0 has had some bilateral LE edema since her revascular ization procedure. recommend compressio n stockings, elevation of LEs, and low sodium diet. [id number] ANGEL CALLAHAN PA-C [address] [place] [address] 12/06/2023 13:15:37 12/06/2023 14:46:07 Adult health examination 935010289 Z00.00 mammo up-to-date . colonoscop y done october 2021[place] [address] Baird. FSEs per dermatolog y. Screening mammography 24 500040 Z12.31 mammo normal 06/04/2023 Screening for malignant neoplasm of colon 624992368 Z12.[address] Baird on 11/14/21 showed lymphocyti c colitis and sigmoid tubular adenoma-re peat in 5 years Menopausal and postmenopausal disorders 778363260 N95.8 Screening for osteoporos is last done 09/03/2021. DEXA due Hepatitis C screening 41 3598249 Z11.59 Has patient ever had Hep C screening? YESNegativ e screening 11/04/2022 Nicotine dependence 5629 4008 Z87.891 She quit smoking on 11/26/23. She was commended for this. This is especially important as she is a vasculopat h. CT lung screening on 05/11/2023 . Active immunization 3387 9002 Z23 Has patient had Hep B vaccine? NO Eye disord er screening 024276651 Z13.5 Has patient ever had eye/glauco ma screening? YES Depression screening 171 522205 Z13.31 PHQ-2 is 0. Peripheral vascular disease 250922567 I73.9 Prior history of revascular ization procedure by Dr. Reza (stenting of infrarenal aorta and bilateral common iliac arteries). Patient also underwent right ilio profunda endarterec yeny (distal external iliac, common femoral, proximal profunda femoris, and proximal superficia l femoral artery) by Dr. Vasiliy collins in 2022. On Eliquis 5 mg twice daily and aspirin 81 mg daily. Now with revascular ization performed 11/04/2023, including bypass left femoral to right femoral artery. She was changed from simvastati n to 10 mg of lipitor per vascular surgery. continue active mgt per vascular surgery. has had some LE discomfort at hs. has tramadol to use but states she tried her 's gabapentin , and 200 mg at bedtime is working well for her. I will prescribe this. Ellis polanco CSA signed. Hypertensive disorder 38 790513 I10 Patient had elevated blood pressure following the revascular ization of the right limb, this was controlled with a Cardene drip. She was weaned and was remaining stable on her home medication . continues on lisinopril per cardiology . systolic a bit elevated today. She sees Luca Leung PA-C. continue active mgt per cardiology . advised to monitor and make sure it's staying less than 140/90. Iron defic iency anemia 54095718 D50.9 started on ferrous sulfate 325 mg at hospital. Hemoglobin was 9.0 on 11/08/2023. This was up from 8.7 a few days prior. iron level 34 on 11/08/2023. has felt a bit of fatigue. recheck cbc in one month. takes iron qod. Hyperlipidemia 00217593 E78.5 LDL 53 in April. Changed from simvastati n to atorvastat in per vascular surgery. Coronary arteriosclerosis 40438460 I25.10 continue active mgt per cardiology . on ASA and statin. EKGs per cardiology . Chronic ob structive pulmonary disease 51488115 J44.9 stable without inhaler. quit smoking 10 days ago. Chronic ki dney disease stage 3A 008427566 N18.31 Avoid nephrotoxi c agents and stay well hydrated. repeat metabolic panel. Osteopenia 587979671 M85 .80 on boniva. dexa in aug 2021. due to be repeated. pt also take 1200 mg of calcium and 2000 IUs of vit D3 daily. Idiopathic peripheral neuropathy 57419880 G60.9 continue active mgt per Dr. Paez, neurology. taking a B complex. Long-term current use of anticoagulant 158388974 Z79.01 On chronic Eliquis for vascular disease. Microscopic colitis 2357 11630 K52.839 Has history of microscopi c colitis. Continue active management per Dr. Baird of GI. [id number] NOEMI SNELL MD BONE DENSITY SB [address] [place] [address] 01/03/2024 13:40:29 01/03/2024 14:10:22 Osteopenia 643055634 M85.89 [id number] ANGEL CALLAHAN PA-C FAM[facility] [address] [place] [address] 06/09/2024 12:52:38 06/09/2024 14:01:36 Nicotine dependence 76877161 Z87.891 She had quit smoking on 11/26/23 but unfortunat sindy restarted about 3 months ago and smokes 4-5 cigs a day. 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 CT lung screening scheduled done 06/07/2024 and did not show nodules. Peripheral vascular disease 873805150 I73.9 Prior history of revascular ization procedure by Dr. Reza (stenting of infrarenal aorta and bilateral common iliac arteries). Patient also underwent right ilio profunda endarterec yeny (distal external iliac, common femoral, proximal profunda femoris, and proximal superficia l femoral artery) by Dr. Vasiliy collins in 2022. On Eliquis 5 mg twice daily and aspirin 81 mg daily. Now with revascular ization performed 11/04/2023, including bypass left femoral to right femoral artery. She was changed from simvastati n to 10 mg of lipitor per vascular surgery. continue active mgt per vascular surgery. Isn't using the gbp right now. Hypertensive disorder 38 984884 I10 continues on lisinopril per cardiology . systolic a bit elevated today. She sees Luca Leung PA-C. continue active mgt per cardiology . advised to monitor and make sure it's staying less than 140/90. Iron defic iency anemia 51684795 D50.9 stopped ferrous sulfate 325 mg. Hemoglobin was 11.5 on 12/06/2023. Iron level normal at that time. recheck CBC and iron level. Hyperlipidemia 92986785 E78.5 LDL 53 last April. Changed from simvastati n to atorvastat in per vascular surgery. Coronary arteriosclerosis 34044845 I25.10 continue active mgt per cardiology . on ASA and statin. EKGs per cardiology . Chronic ob structive pulmonary disease 56568645 J44.9 stable without inhaler. quit smoking 10 days ago. Chronic ki dney disease stage 3A 052290560 N18.31 Avoid nephrotoxi c agents and stay well hydrated. repeat metabolic panel. Osteopenia 285114931 M85 .80 Had quit taking Boniva a couple months ago. dexa on 01/03/2024 showed worsening osteopenia , and bisphospho christopher therapy was recommende d to be continued at that time. Pt advised to take 1200 mg of calcium and 2000 IUs of vit D3 daily. Continue to work on smoking cessation and regular weightbear ing exercise. DEXA is to be repeated in 2 years. restart boniva. Idiopathic peripheral neuropathy 03983861 G60.9 continue active mgt per Dr. Paez, neurology. taking a B complex. Long-term current use of anticoagulant 222007310 Z79.01 On chronic Eliquis for vascular disease. Microscopic colitis 2357 56698 K52.839 Has history of microscopi c colitis. Continue active management per GI. Atrial fibrillation 4943 6004 I48.91 History of atrial fibrillati on in postop setting. Has been in sinus rhythm but remains on Eliquis for peripheral vascular disease as well. Hypercoagu lability state 96811531 D68.69 Due to prior history of atrial fibrillati on. Continues on Eliquis. Administra tion of viral vaccine 17476544 Z23 [id number] WHITNEY NARVAEZ APRN DERMATOLO [facility] [address] [place] [address] 08/22/2024 13:34:46 08/22/2024 14:26:54 Solar lentiginosis 066380125 L81.4 BENIGN APPEARANCE , PT REASSUREDR [employer] SUN PROTECTIVE CLOTHING AND EQUATE SPORT SUNSCREEN AND CERAVE AM SUNSCREEN LOTION OTC DAILY. 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 BENIGN APPEARANCE , PT REASSURED History of actinic keratosis 3396527609 104 Z87.2 NO EOR RECOMMEND ANNUAL FSE Milia 871307432 L72.0 BENIGN APPEARANCE , PT REASSUREDE XTRACTION REMOVAL X 1PER PATIENT REQUESTPOS T OP CARE GIVEN AND VERBAL CONSENT RECIEVED Foot callus 572565597 L8 4 ADVISED PATIENT TO SOAK AND PUMICE , TOE PADSPARED DOWN X2 IN OFFICE TODAYVERBA L CONSENT RECEIVED AND POST OP CARE GIVEN [id number] ANGEL CALLAHAN PA-C [facility] MED[facility] [address] [facility] [place] [address] 12/07/2024 12:40:53 12/07/2024 14:06:21 Adult health examination 943766184 Z00.00 mammo up-to-date . colonoscop y done october 2021-repea t in 5 years. FSEs per dermatolog y. Screening mammography 24 138736 Z12.31 mammo normal 06/26/2024 Screening for malignant neoplasm of colon 245261431 Z12.[address] Baidr on 11/14/21 showed lymphocyti c colitis and sigmoid tubular adenoma-re peat in 5 years Menopausal and postmenopausal disorders 642626355 N95.8 Screening for osteoporos is-dexa 01/03/24; repeat in 2 years Hepatitis C screening 41 6402337 Z11.59 Has patient ever had Hep C screening? YESneg screening 11/04/2022 Nicotine dependence 5629 4008 Z87.891 She had quit smoking on 11/26/23 but unfortunat sindy restarted and smokes 5 cigs a day. 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 CT lung screening done 06/07/2024 and did not show nodules. she's back on Chantix. Active immunization [id number] Z23 Has patient had Hep B vaccine? NO2nd shingrix due Eye disord er screening [id number] Z13.5 Has patient ever had eye/glauco ma screening? YES Depression screening [id number] Z13.31 PHQ-2 is 0. Peripheral vascular disease [id number] I73.9 history of revascular ization procedure by [...] management per vascular surgery. Hypertensive disorder 38 [id number] I10 continues on lisinopril per cardiology . She sees Luca Leung PA-C. continue active mgt per cardiology . advised to monitor and make sure it's staying less than 140/90. Iron defic iency anemia [id number] D50.9 stopped ferrous sulfate 325 mg. Hemoglobin was 11.5 on 12/06/2023. Iron level normal at that time. recheck CBC and iron level. Hyperlipidemia [id number] E78.5 LDL 53 last April. Changed from simvastati n to atorvastat in per vascular surgery. Coronary arteriosclerosis [id number] I25.10 continue active mgt per cardiology . on ASA and statin. EKGs per cardiology . Chronic ob structive pulmonary disease 48892612 J44.9 stable without inhaler Chronic ki dney disease stage 3A [id number] N18.31 Avoid nephrotoxi c agents and stay well hydrated. repeat metabolic panel. Osteopenia 149120917 M85 .80 dexa on 01/03/2024 showed worsening [...] repeated in 2 years. Idiopathic peripheral neuropathy 45492061 G60.9 continue active mgt per neurology. taking a B complex and gabapentin . Long-term current use of anticoagulant 516994483 Z79.01 On chronic Eliquis for vascular disease. Microscopic colitis 2357 96645 K52.839 Has history of microscopi c colitis. Continue active management per GI. Atrial fibrillation 4943 6004 I48.91 History of atrial fibrillati on in postop setting. Has been in sinus rhythm but remains on Eliquis for peripheral vascular disease as well. continue active mgt per cardiology . Hypercoagu lability state [id number] D68.69 Due to prior history of atrial fibrillati on. Continues on Eliquis. History of syncope 28509 [id number] 29275 Z87.898 hx syncope/ne ar syncope. cardiac work up, including holter, echo, myoview GXT with subsequent implanted loop recorder without abnormalit ies or recurrent episodes. continue active mgt per cardiology . Impacted c erumen in right ear [id number] 004442 H61.21 Right cerumen impaction. Unable to be fully removed with curette, but removed completely with irrigation . Patient is to stop using Q-tips. Recommend Debrox drops or hydrogen peroxide 1-2 times a week to prevent cerumen buildup. Health Concerns Section Related Observation LastModified by Organization Detai ls LastModified Time None Recorded Concern Status LastModified by Organization Details LastModified Time None Recorded Advance Directives Directive None Recorded Payers Insurance Date Sequence Insurance Name Policy Number Policy Montes Covered Member ID Montes Member ID Guarantor Name 01/13/2024 2 [employer] (MEDICARE SUPPLEMENT) Deidra Price 12/12/2024 2 [employer] (MEDICARE SUPPLEMENT) Deidra Price [id number] Deidra Price 12/04/2024 1 [place] Deidra Price [id number] Deidra Price Notes Date Note Type Note Provider Name and Address Organization Details Recorded Time 12/06/2023 text/html Patient presents for annual wellness visit and follow-up of peripheral vascular disease, hypertension, iron deficiency anemia, hyperlipidemia, coronary arteriosclerosis, COPD, osteopenia, peripheral neuropathy, and microscopic colitis. She had recent revascularization once again per vascular surgery few weeks ago which restored blood flow to the right lower extremity. She has no claudication symptoms. She is following closely with vascular surgery and actually just quit smoking 10 days ago. Her systolic blood pressure is slightly elevated today. She has not checked recently. She denies headaches, chest pain, or shortness of breath issues. She sees Luca Leung PA-C of cardiology. In the hospital recently, she was noted to have iron deficiency anemia. She has been taking an iron supplement but is only using this every other day. She still has some fatigue issues, particularly as the day goes on. She denies dizziness or shortness of breath with exertion. Blood work will be rechecked today. She is tolerating atorvastatin well and denies myalgias. She is followed by cardiology for coronary artery disease and continues on aspirin and atorvastatin. COPD is stable off inhalers, and she just recently quit smoking as well. She takes calcium and vitamin D, as well as Boniva, for osteopenia and is due to repeat a DEXA scan. She continues to be followed by Dr. Baird for microscopic colitis and is stable. Her colonoscopy is up-to-date. Especially since having her revascularization procedure, she has had some neuropathic type pain in the right lower extremity that carter and radiates from her low back down the lateral aspect of the right lower extremity to the ankle. This is actually worse with lying down but better when she is up moving. She tried some of her husbands gabapentin and found that 200 mg at bedtime is helpful for helping her rest. She has no other acute health concerns today. See template for annual wellness visit. ANGEL CALLAHAN PA-C [address] [place], [id number], [facility] 12/06/2023 14:27:31 06/09/2024 text/html FLU Vaccine Scre ening ChecklistReported bypatient.general overall feelingPatient is not sick today; No allergy to a component of the vaccine; No serious reaction to influenza vaccine in the past.; No history of Guillain-Watervliet syndrome Patient presents for follow-up of peripheral vascular disease, hypertension, iron deficiency anemia, hyperlipidemia, coronary artery disease, COPD, osteopenia, and peripheral neuropathy. She has had multiple revascularizations and stenting for peripheral vascular disease and remains on Eliquis and aspirin per vascular surgery. She denies epistaxis or melena on this. For neuropathic pain related to her procedures, she takes gabapentin and does well with this. She denies having any sedation on the medication. Her blood pressure has been running at goal, and she has no chest pain or shortness of breath. She does not report readings. She continues on ferrous sulfate for iron deficiency anemia and denies having fatigue, dizziness, or shortness of breath. She is tolerating her statin well and denies myalgias on this. COPD has been remaining stable, and she quit smoking about 6 months ago. However, she restarted smoking 4 to 5 cigarettes daily about 3 months ago. She had been taking Boniva for osteopenia but stopped it around 3 months ago. She tolerated it well. Her DEXA scan is up-to-date. She continues on B complex and gabapentin for her neuropathy which has been well-controlled. She has otherwise been in her usual state of health and has no acute health concerns today. ANGEL CALLAHAN PA-C [address] [place], [phone], [facility] 06/09/2024 14:02:02 08/22/2024 text/html ESTABLISHED PT - HX AK'S 1) FSE- PT DESIRES TO HAVE SPOTS ON ENTIRE BODY EXAMINED TODAY. NO OTHER CONCERNS Denies any other new, changing, or bleeding lesions, or other rashes. Patient feels well today and in a good mood. No family history of melanoma. WHITNEY NARVAEZ, ARCHIVAL RECORDS CLERK [address] [place], [address], [facility] 08/22/2024 14:27:18 12/07/2024 text/html Patient presents for annual wellness visit and follow-up of peripheral vascular disease, hypertension, iron deficiency anemia, hyperlipidemia, coronary artery disease, COPD, osteopenia, idiopathic peripheral neuropathy, and atrial fibrillation. She continues to be followed closely by Dr. Reza of vascular surgery as she is a [...] muffled hearing on the right. Her 's business support coordinator told her she has a cerumen impaction. She denies drainage from the ear or ear ache. She has otherwise been in her usual state of health. See template for annual wellness visit. ANGEL CALLAHAN PA-C [address] [place], [phone], [facility] 12/07/2024 14:16:47 OBGyn Episode No OBEpisode recorded.
[2025-01-22 12:15] LABS: Hematocrit 36.9 % (37.0-47.0); Hemoglobin 12.1 g/dL (12.2-16.2); Immature Granulocytes % 0.3 %; Mean Corpuscular HGB Conc 32.8 g/dL (31.8-35.4); Mean Corpuscular Hemoglobin 32.1 pg (27.0-31.2); Mean Corpuscular Volume 97.9 fl (81-99); Nucleated Red Blood Cells % 0 %; Platelet Count 209 K/mm3 (142-424); Red Blood Count 3.77 M/mm3 (4.20-5.40); Red Cell Distribution Width-SD 43.9 fL; White Blood Count 6.2 K/mm3 (4.8-10.8)
[2025-01-22 12:34] LABS: Anion Gap 16.6 mEq/L (5-15); Blood Urea Nitrogen 34 mg/dl (7-17); Calcium 9.7 mg/dl (8.4-10.2); Carbon Dioxide 24 mmol/L (22.0-30.0); Chloride 104 mmol/L (98-107); Creatinine,Serum 1.10 mg/dl (0.52-1.04); Estimated Glomerular Filt Rate 48 ml/min (>60); GFR (African American) 58 ML/MIN (>60); Glucose 97 mg/dl (74-100); Potassium 4.6 mmoL/L (3.5-5.1); Sodium 140 mmol/L (136-145)
== END 2025-01-22 23:59 | disposition home or self-care (01) ==
LOC: LAB 11:55
PROVIDERS: PCP Physician Assistant Surgical; Visit Provider Surgery
DX: Z79.01 Long term (current) use of anticoagulants (principal)
CPT/HCPCS: 36415; 80048; 85025

== ENCOUNTER 2025-07-16 14:09 | Outpatient (CLI) | payer MEDICARE, SELFPAY ==
--- OUTSIDE RECORDS SUMMARY | 2025-05-23 13:00 | XMS_ITS | Encounter Summary ---
Author Organization [employer] ([place], [place], [place], [place], [place]) Address [address] [place] [address] Care Team Providers Care Import Coordinator Name Role Phone Rita Callahan Primary Care Provider [phone] Encounter Details Date Type Department Care Team (Latest Contact Info) Description 05/23/2025 1:00 PM EST Office Visit [facility] Cardiology - [address] [place] [address] Nancy Leung PA-C [address] [phone] Coronary artery disease involving [place] coronary artery of [place] heart without angina pectoris (Primary Dx); Coronary arteriosclerosis in [place] artery Social History Tobacco Use Types Packs/Day Years Used Date Smoking Tobacco: Some Days Cigarettes 1 50 Last attempted to quit: 11/17/2023 Smokeless Tobacco: Never Alcohol Use Standard Drinks/Week Comments Yes 0 (1 standard drink = 0.6 oz pur e alcohol) social caffeine use PRAPARE - Transportation Answer Date Re corded In the past 12 months, has l ack of transportation kept you from medical appointments or from getting medications? No 07/29/2023 Lack of Transportation (Non-Medical) Not on file 07/29/2023 Utilities Answer Date Recorded In the past 12 months, has t he electric, gas, oil, or water company threatened to shut off services in your home? No 11/02/2023 Food Insecurity Answer Date Recorded Within the past 12 months, y ou worried that your food would run out before you got money to buy more. Never true 11/02/2023 Within the past 12 months, t he food you bought just didn't last and you didn't have money to get more. Never true 11/02/2023 Transportation Needs Answer Date Record ed In the past 12 months, has l ack of reliable transportation kept you from medical appointments, meetings, work or from getting things needed for daily living? No 11/02/2023 Financial Resource Strain Answer Date R ecorded How hard is it for you to pa y for the very basics like food, housing, medical care, and heating? Would you say it is: Not hard at all 11/02/2023 Employment Answer Date Recorded Do you want help finding or keeping work or a job? I do not need or want help 11/02/2023 Family and Community Support Answer Sundar e Recorded If for any reason you need h elp with day-to-day activities such as bathing, preparing meals, shopping, managing finances, etc., do you get the help you need? I don't need any help 11/02/2023 Feeling Lonely or Isolated 0 11/01 Educational Attainment Answer Date Binh rded Do you speak a language other than [place] at [facility]? No 11/02/2023 Do you want help with school or training? For example, starting or completing job training or getting a high school diploma, GED or equivalent. No 11/02/2023 Physical Activity Answer Date Recorded Number of minutes of exercise per week 60 11/02/2023 Substance Use Answer Date Recorded How many times in the past y ear have you used prescription drugs for non-medical reasons? Never 11/02/2023 How many times in the past year have you used [place] legal drugs? Never 11/02/2023 Comments No Sex and Gender Information Value Date Recorded Sex Assigned at Not on file Legal Sex Female 4:10 PM CDT Gender Identity Not on file Sexual Orientation Not on file documented as of this encounter Last Filed Vital Signs Vital Sign Reading Time Taken Comments Blood Pressure 110/60 05/23/2025 1:31 PM EST Pulse 60 05/23/2025 1:31 PM EST Temperature - - Respiratory Rate 20 05/23/2025 1:31 PM EST Oxygen Saturation 99% 05/23/2025 1:31 PM EST Inhaled Oxygen Concentration - - Weight 53.1 kg (117 lb) 05/23/2025 1:31 PM EST Height 162.6 cm (5' 4 ) 05/23/2025 1:31 PM EST Body Mass Index 20.08 05/23/2025 1:31 PM EST documented in this encounter Functional Status * BP Answer Date of Assessment Author 110/60 05/23/2025 1:31 PM PHARMACY RESOURCE TECH Donovan, B ethany L, MEDICAL CLERICAL ASSISTANT * Pulse Answer Date of Assessment Author 60 05/23/2025 1:31 PM PHARMACY RESOURCE TECH Donovan, B ethany L, MEDICAL CLERICAL ASSISTANT * Resp Answer Date of Assessment Author 20 05/23/2025 1:31 PM PHARMACY RESOURCE TECH Donovan, B ethany L, MEDICAL CLERICAL ASSISTANT * SpO2 Answer Date of Assessment Author 99 05/23/2025 1:31 PM PHARMACY RESOURCE TECH Donovan, B ethany L, MEDICAL CLERICAL ASSISTANT * Height Answer Date of Assessment Author 64 05/23/2025 1:31 PM PHARMACY RESOURCE TECH Donovan, B ethany L, MEDICAL CLERICAL ASSISTANT * Weight Answer Date of Assessment Author 1872 05/23/2025 1:31 PM PHARMACY RESOURCE TECH Donovan, B ethany L, MEDICAL CLERICAL ASSISTANT * Tidal Volume Answer Date of Assessment Author 320 05/23/2025 1:31 PM PHARMACY RESOURCE TECH Donovan, B ethany L, MEDICAL CLERICAL ASSISTANT * Shock Index Answer Date of Assessment Author 0.55 05/23/2025 1:31 PM PHARMACY RESOURCE TECH Donovan, B ethany L, MEDICAL CLERICAL ASSISTANT * BMI (Calculated) Answer Date of Assessment Author 20.1 05/23/2025 1:31 PM PHARMACY RESOURCE TECH Donovan, B ethany L, MEDICAL CLERICAL ASSISTANT * BP Location Answer Date of Assessment Author Left arm 05/23/2025 1:31 PM PHARMACY RESOURCE TECH Donovan, B ethany L, MEDICAL CLERICAL ASSISTANT * Restart Vitals Timer Answer Date of Assessment Author Yes 05/23/2025 1:31 PM PHARMACY RESOURCE TECH Donovan, B ethany L, MEDICAL CLERICAL ASSISTANT * Patient Position Answer Date of Assessment Author Sitting 05/23/2025 1:31 PM PHARMACY RESOURCE TECH Donovan, B ethany L, MEDICAL CLERICAL ASSISTANT * Are you deaf or do you have serious difficulty hearing? Answer Date of Assessment Author No 07/30/2023 1:23 PM Kristi Flores RN * Are you blind or do you have serious difficulty seeing, even when wearing glasses? Answer Date of Assessment Author No 07/30/2023 1:23 PM Kristi Flores RN * Do you have serious difficulty walking or climbing stairs? Answer Date of Assessment Author No 07/30/2023 1:23 PM Kristi Flores RN * Do you have serious difficulty dressing or bathing? Answer Date of Assessment Author No 07/30/2023 1:23 PM Kristi Flores RN * Because of a physical, mental, or emotional condition, do you have serious difficulty doing errandsalone such as visiting the doctor? Answer Date of Assessment Author No 07/30/2023 1:23 PM Kristi Flores RN * BP Answer Date of Assessment Author 110/60 05/23/2025 1:31 PM PHARMACY RESOURCE TECH Donovan, B ethany L, MEDICAL CLERICAL ASSISTANT * Pulse Answer Date of Assessment Author 60 05/23/2025 1:31 PM PHARMACY RESOURCE TECH Donovan, B ethany L, MEDICAL CLERICAL ASSISTANT * Resp Answer Date of Assessment Author 20 05/23/2025 1:31 PM PHARMACY RESOURCE TECH Donovan, B ethany L, MEDICAL CLERICAL ASSISTANT * SpO2 Answer Date of Assessment Author 99 05/23/2025 1:31 PM PHARMACY RESOURCE TECH Donovan, B ethany L, MEDICAL CLERICAL ASSISTANT * BMI (Calculated) Answer Date of Assessment Author 20.1 05/23/2025 1:31 PM PHARMACY RESOURCE TECH Donovan, B ethany L, MEDICAL CLERICAL ASSISTANT documented as of this encounter Mental Status * BP Answer Entry Date Author 110/60 05/23/2025 1:31 PM PHARMACY RESOURCE TECH Donovan, B ethany L, MEDICAL CLERICAL ASSISTANT * Pulse Answer Entry Date Author 60 05/23/2025 1:31 PM PHARMACY RESOURCE TECH Donovan, B ethany L, MEDICAL CLERICAL ASSISTANT * Resp Answer Entry Date Author 20 05/23/2025 1:31 PM PHARMACY RESOURCE TECH Donovan, B ethany L, MEDICAL CLERICAL ASSISTANT * SpO2 Answer Entry Date Author 99 05/23/2025 1:31 PM PHARMACY RESOURCE TECH Donovan, B ethany L, MEDICAL CLERICAL ASSISTANT * Height Answer Entry Date Author 64 05/23/2025 1:31 PM PHARMACY RESOURCE TECH Donovan, B ethany L, MEDICAL CLERICAL ASSISTANT * Weight Answer Entry Date Author 1872 05/23/2025 1:31 PM PHARMACY RESOURCE TECH Donovan, B ethany L, MEDICAL CLERICAL ASSISTANT * Tidal Volume Answer Entry Date Author 320 05/23/2025 1:31 PM PHARMACY RESOURCE TECH Donovan, B ethany L, MEDICAL CLERICAL ASSISTANT * Shock Index Answer Entry Date Author 0.55 05/23/2025 1:31 PM Trip Guevara CMA * BMI (Calculated) Answer Entry Date Author 20.1 05/23/2025 1:31 PM Trip Guevara CMA * BP Location Answer Entry Date Author Left arm 05/23/2025 1:31 PM Trip Guevara CMA * Patient Position Answer Entry Date Author Sitting 05/23/2025 1:31 PM Trip Guevara CMA * Because of a physical, mental, or emotional condition, do you have serious difficulty concentrating, remembering, or making decisions? (5 years old or older) Answer Entry Date Author No 07/30/2023 1:23 PM Kristi Flores RN documented in this encounter Progress Notes * Nancy Leung PA-C - 05/23/2025 1:00 PM EST History of Present Illness Delightful 79-year-old WF. She is known to me from a previous practice. She is a chronic smoker with PAD, CAD with RCA PCI in 2014, hypertension and hyperlipidemia. Carotid duplex in the past showed moderate R ICA stenosis. Came in December 2018 with recurrent syncopal episodes. A Myoview stress test was negative for ischemiaecho with saline challenge was unremarkable, carotid studies were unchanged. A loop recorder was implanted. No arrhythmias to date now with generator. Severe PVD history of lower extremity stents, right femoral endarterectomy with patch angioplasty presented last month with acute right ischemic lower extremity with iliofemoral endarterectomy and left common femoral artery, right femoral and likely removal of old femoral graft from right femoral artery, right superficial femoral artery endarterectomy, patch angioplasty with bovine pericardium offemoral down to distal SFA left femoral to right femoral artery bypass. Postop anemia, postop atrial fibrillation. Echo no wall motion changes normal ejection fraction no hemodynamically important heart valve abnormalities. Recently went back for balloon angioplasty of left lower extremity No new complaints today Using the Chantix to assist with long-term smoking habit Review of Systems 14 point review of systems is negative except as noted in HPI. Social History Tobacco Use Smoking status: Some Days Current packs/day: 0.00 Average packs/day: 1 pack/day for 50.0 years (50.0 ttl pk-yrs) Types: Cigarettes Last attempt to quit: 11/17/2023 Years since quittin.5 Smokeless tobacco: Never Vaping Use Vaping status: Never Used Substance Use Topics Alcohol use: Yes Comment: social caffeine use Drug use: Never Past Surgical History: Procedure Laterality Date ANGIOPLASTY,ARTERIAL-LOWER Right 08/13/2022 Procedure: RIGHT COMMON ILIAC; Surgeon: Hero Reza MD; Location: [facility] OR; Service: Vascular; Laterality: Right; AORTOGRAM,ABDOMINAL Bilateral 08/13/2022 Procedure: AORTOGRAM WITH RUNOFF, LEFT COMMON ILIAC THROMBECTOMY WITH STENT PLACEMENT, RIGHT COMMONILIAC ANGIOPLASTY, WITH IVUS OF RIGHT AND LEFT COMMON ILIAC ARTERIES; Surgeon: Hero Reza MD;Location: [facility] OR; Service: Vascular; Laterality: Bilateral; Flouro Time: 2 minutes Contrast Amount: 25mL AORTOGRAM,ABDOMINAL Right 06/17/2023 Procedure: (AORTOGRAM WITH RUNOFF AND MECHANICAL THROMBECTOMY OF RT ILIAC ARTERY, ILIAC ANGIOPLASTYAND STENTING.; Surgeon: Hero Reza MD; Location: [facility] OR; Service: Vascular; Laterality: Right; x-ray time: 11 MINUTES ALTEPLASE 4MG INTRA ARTERIAL BYPASS,FEMORAL-FEMORAL Bilateral 11/04/2023 Procedure: ( LT TO RT FEMORAL TO FEMORAL BYPASS GRAFT, LEFT ILEOFEMORAL ENDARTECTOMY; Surgeon: Junior Taylor MD; Location: [facility] OR; Service: Vascular; Laterality: Bilateral; 3HRS(A),TO FOLLOW HIMSELF, PER NANCY LIN, VIA CONVERSATION WITH TAYLOR/ ANUPAMA VALENCIA TO ADD CASE BYPASS,ILIO-FEMORAL Right 07/29/2023 Procedure: (RT COMMON FEMORAL ARTERY REPAIR WITH PATCH.; Surgeon: Hero Reza MD; Location: [facility] OR; Service: Vascular; Laterality: Right; IN 0530, 3HRS(R) PASS TBS , REQ 1ST ASST, PER KAYLYN REZA TO START AT 730 CHOLECYSTECTOMY COLONOSCOPY ENDARTERECTOMY,FEMORAL Right 08/31/2022 Procedure: (RIGHT EXTERNAL ILIAC, COMMON FEMORAL, PROFUNDA ENDARTERECTOMY.; Surgeon: Vasiliy Morrison MD; Location: [facility] OR; Service: General Surgery; Laterality: Right; IN 0900, 3 HR (A), PASS EYE SURGERY Bilateral bilat cataracts HYSTERECTOMY loop recorder STENT / ILIAC Left 08/13/2022 Procedure: LEFT COMMON ILIAC ; Surgeon: Hero Reza MD; Location: [facility] OR; Service: Vascular; Laterality: Left; TONSILLECTOMY VASCULAR SURGERY coronary artery stent and bialteral iliac artery stents Past Medical History: Diagnosis Date Arrhythmia states it's shown in preop and recovery. 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 Royce Paez Ischemia of right lower extremity Neuropathy 08/13/2022 Osteopenia 10/16/2021 Peripheral vascular disease ([facility]) 10/12/2016 S/P coronary artery stent placement 2009 Dr. Royce Paez Smoker Stage 3 chronic kidney disease ([facility]) 04/18/2022 Family History Problem Relation Name Age of Onset Heart disease Father Other Other malignant deoplastic disease Diabetes Other Heart disease Other Hypertension Other Kidney disease Other Stroke Other Current Outpatient Medications: apixaban (ELIQUIS) 5 mg Tab tablet, Take 1 tablet (5 mg total) by mouth 2 (two) times daily., Disp:, Rfl: aspirin 81 MG EC tablet, Take 1 tablet (81 mg total) by mouth nightly., Disp: , Rfl: famotidine (PEPCID) 20 MG tablet, Take 1 tablet (20 mg total) by mouth daily as needed for heartburn., Disp: , Rfl: gabapentin (NEURONTIN) 100 MG capsule, Take 2 capsules (200 mg total) by mouth nightly., Disp: , Rfl: lisinopriL (ZESTRIL) 5 MG tablet, Take 1 tablet (5 mg total) by mouth nightly., Disp: 90 tablet, Rfl: 2 melatonin 10 mg Chew, Take 1 tablet by mouth every night as needed (for Sleep)., Disp: , Rfl: multivitamin with minerals tablet, Take 1 tablet by mouth daily., Disp: , Rfl: polycarbophil (FIBERCON) 625 mg tablet, Take 1 tablet (625 mg total) by mouth every night as needed(for Constipation)., Disp: , Rfl: varenicline tartrate (CHANTIX) 1 mg tablet, Take by mouth., Disp: , Rfl: atorvastatin (LIPITOR) 20 MG tablet, Take 1 tablet (20 mg total) by mouth daily., Disp: 90 tablet, Rfl: 2 b complex vitamins capsule, Take 1 capsule by mouth daily. (Patient not taking: Reported on 05/23/2025.), Disp: , Rfl: Vitals: 05/23/25 1331 BP: 110/60 Pulse: 60 Resp: 20 SpO2: 99% Physical Exam Constitutional: Appearance: Normal appearance. Patient is normal weight. Cardiovascular: Rate and Rhythm: Normal rate and regular rhythm. Pulses: Normal pulses. Heart sounds: Normal heart sounds. Pulmonary: Effort: Pulmonary effort is normal. Breath sounds: Normal breath sounds. Abdominal: General: Abdomen is flat. Bowel sounds are normal. Palpations: Abdomen is soft. Skin: General: Skin is warm and dry. Capillary Refill: Capillary refill takes less than 2 seconds. Neurological: General: No focal deficit present. Mental Status: He is alert and oriented to person, place, and time. Mental status is at baseline. Psychiatric: Mood and Affect: Mood normal. Behavior: Behavior normal. Thought Content: Thought content normal. Judgment: Judgment normal. Lab Review Component Value Date/Time WBC 5.2 02/15/2024 1104 RBC 3.89 (L) 02/15/2024 1104 HGB 12.4 02/15/2024 1104 HCT 37.8 02/15/2024 1104 Component Value Date/Time GLUCOSE 98 02/15/2024 1104 BUN 25 (H) 02/15/2024 1104 CREATININE 0.86 02/15/2024 1104 NA 139 02/15/2024 1104 K 4.2 02/15/2024 1104 CL 112 02/15/2024 1104 Component Value Date/Time AST 12 02/15/2024 1104 ALT 20 02/15/2024 1104 ALKPHOS 59 02/15/2024 1104 EKG: Sinus bradycardia 56 bpm otherwise normal Assessment -Atrial fibrillation following recent lower extremity vascular surgery-now in [facility] -CAD RCA PCI 2012, negative Myoview GXT 2019 -Recurrent syncope/near syncope-negative carotid, negative Holter, normal echo normal Myoview GXT with subsequent implanted loop recorder with no arrhythmias to date and no recent recurrent episodes (2018) -PVD bilateral common iliac stents 2012, occlusion with restenting 2014, critical limb ischemia with right ilio profunda endarterectomy 2022 with acute ischemia with surgical revascularization 10/2023 -Chronic ongoing tobacco abuse -Hypertension -Hyperlipidemia -Chronic anticoagulation-Eliquis PVD prophylaxis Plan EKG is normal Patient has reocclusion of right lower extremity with plans for intervention. Her right foot is cold. She has pain with activity. She is currently having some mild rest pain. She was advised to contact Dr. Reza if she has accelerating symptoms. He has been very juana with her about the potential for limb loss. She is currently smoking 4 to 6 cigarettes/day. I have increased her atorvastatin to 40 mg daily Prescriptions renewed electronically Follow-up in 6 months Follow-up in 6 months Nancy Leung PA-C MACY RESOURCE TECH documented in this encounter Plan of Treatment Upcoming Encounters Date Type Department Care Team (Late st Contact Info) Description 12/04/2025 1:30 PM EDT Office Visit [facility] Cardiology - [address] [phone] Nancy Leung PA-C [address] [place] [phone] documented as of this encounter Procedures Procedure Name Priority Date/Time Associated Diagnosis Comments FS_MODEL_IP_ECG 12-LEAD Routine 05/23/2025 4:03 PM EST Coronary artery disease involving [place] coronary artery of [place] heart without angina pectoris documented in this encounter Results * ECG 12 lead (05/23/2025 4:03 PM EST) Nancy Leung PA-C ECG ORDERABLES Final Result documented in this encounter Visit Diagnoses Diagnosis Coronary artery disease involving [place] coronary artery of [place] heart without angina pectoris- Primary Coronary arteriosclerosis in [place] artery documented in this encounter Care Teams Import Coordinator Relationship Specialty Start Date End Date Rita Callahan PA PCP - General 08/13/22 documented as of this encounter
--- OUTSIDE RECORDS SUMMARY | 2025-07-16 14:20 | XMS_ITS | Clinical Summary ---
Author Organization [employer] ([place], [place], [place], [place], [place]) Address [address] [place] [address] Care Team Providers Care Marble Installation Helper Name Role Phone Rita Callahan Primary Care Provider Allergies Active Allergy Reactions Criticality Noted Date Comments Cephalexin 11/13/2022 Cephalosporins Anaphylaxis High 08/12/2022 Codeine Other (See Comments) 02/03/2011 Other reaction(s): abdominal pain Hydrocodone-Acetaminophe n Nausea Only 08/25/2012 CAN TAKE TRAMADOL Medications famotidine (PEPCID) 20 MG tablet Take 1 tablet (20 mg total) by mouth daily as needed for heartburn. Active aspirin 81 MG EC tablet Take 1 tablet (81 mg total) by mouth nightly. Active b complex vitamins capsule Take 1 capsule by mouth daily. Active multivitamin with minerals tablet Take 1 tablet by mouth daily. Active apixaban (ELIQUIS) 5 mg Tab tablet Take 1 tablet (5 mg total) by mouth 2 (two) times daily. Active polycarbophil (FIBERCON) 625 mg tablet Take 1 tablet (625 mg total) by mouth every night as needed (for Constipation ). Active melatonin 10 mg Chew Take 1 tablet by mouth every night as needed (for Sleep). Active gabapentin (NEURONTIN) 100 MG capsule Take 2 capsules (200 mg total) by mouth nightly. 5 Active varenicline tartrate (CHANTIX) 1 mg tablet Take by mouth. 5 Active lisinopriL (ZESTRIL) 5 MG tabletIndications:Co ronary arteriosclerosis in [place] artery Take 1 tablet (5 mg total) by mouth nightly. 90 tablet 2 5 Active atorvastatin (LIPITOR) 20 MG tabletIndications:Co ronary arteriosclerosis in [place] artery Take 1 tablet (20 mg total) by mouth daily. 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 Neuropathy 08/13/2022 Eczema 04/30/2022 Stage 3 chronic kidney disease 04/18/2022 Osteopenia 10/16/2021 Chronic obstructive lung disease 02/22/2019 Hyperlipidemia 10/12/2016 Peripheral vascular disease 10/12/201602/2024 Overview (07/26/2023): 08/17/22-r=severeleft -milddr eliot Hypertension 06/17/2015 Resolved Problems Problem Noted Date Diagnosed Date Resolved Date Smoker 11/13/2022 06/17/2023 Ischemia of right lower extremity 11/13/2022 07/26/2023 Stage 3a chronic kidney disease 10/11/2022 3 07/26/2023 Peripheral vascular disease 10/12/2016 06/17/2023 Coronary arteriosclerosis in [place] artery 06/17/2015 06/17/2023 Hypertensive disorder 06/16/2015 06/17/20232023 Overview (06/17/2023): From Automated Load;Provider: Cr Neff;Status: Active S/P coronary artery stent placement 07/19/2009 06/17/2023 Overview (11/13/2022): Dr. Royce Paez Encounters Date Type Department Care Team Description 05/23/2025 1:00 PM EST Office Visit [facility] Cardiology - [address] [address] Nancy Leung PA-C Coronary artery disease involving [place] coronary artery of [place] heart without angina pectoris (Primary Dx); Coronary arteriosclerosis in [place] artery from Last 3 Months Family History Medical History Relation Name Comments Heart disease Father Diabetes Other Heart disease Other Hypertension Other Kidney disease Other Other Other malignant deopl astic disease Stroke Other Relation Name Status Comments Father Other Social History Tobacco Use Types Packs/Day Years Used Date Smoking Tobacco: Some Days Cigarettes 1 50 Last attempted to quit: 11/17/2023 Smokeless Tobacco: Never Tobacco Cessation:Ready to Q uit: Not Asked; Counseling Given: Not Answered Alcohol Use Standard Drinks/Week Comments Yes 0 [...] Do you speak a language other than Georgian at [facility]? No 11/02/2023 Do you want help with [...] on file Sexual Orientation Not on file Last Filed Vital Signs Vital Sign Reading Time Taken Comments Blood Pressure 110/60 05/23/2025 1:31 PM EST Pulse 60 05/23/2025 1:31 PM EST Temperature 36.7 C (98 F) 02/15/2024 10:31 AM EDT Respiratory Rate 20 05/23/2025 1:31 PM EST Oxygen Saturation 99% 05/23/2025 1:31 PM EST Inhaled Oxygen Concentration - - Weight 53.1 kg (117 lb) 05/23/2025 1:31 PM EST Height 162.6 cm (5' 4 ) 05/23/2025 1:31 PM EST Body Mass Index 20.08 05/23/2025 1:31 PM EST Plan of Treatment Upcoming Encounters Date Type Department Care Team (Late st Contact Info) Description 12/04/2025 1:30 PM EDT Office Visit [facility] Cardiology - [place] [address] [place] [address] Nancy Leung PA-C [address] [facility] [address] [place] [address] Health Maintenance Due Date Last Done Comments DXA SCAN 1945 Depression Screening (12+) 1958 Hepatitis C Screening 1963 Medicare Initial AWV G0438 10/18/2012 Respiratory Syncytial Virus (RSV) Adult or (1 - 1-dose 75+ series) 2021 Falls Risk Screening 07/19/2024 Lung Cancer Screening 02/14/2025 02/15/2024 COVID-19 VACCINE (2024-2 6 season) 2025 05/05/2023, 04/30/2022, 04/30/2022, Additional history exists Influenza Vaccine (#1) 2025 , 05/05/2023, 04/30/2022, Additional history exists Tobacco Cessation Counseling and Screening (12+) 09/13/2025 09/13/2024 DTAP/TDAP/TD VACCINES (2 - T d or Tdap) 12/05/2033 12/06/2023 Pneumococcal 50+ years Completed 11/04/2022, 2021 Shingles Vaccine (Zoster) Completed 12/07/2024, Medical Devices Implanted Type Area Craft Recruiter Device Identifier Shelf Expiration Date Model / Serial / Lot Ptch Vasc Biologic 0.0wlm1qm E0.8p8 - [id number] Implanted:Qt y: 1 on 08/31/2022 by Vasiliy Morrison MD at [facility] IMPLANTS Right: Arterial LEMAITRE VASCULAR 03/15/2028 E0.8P8 / / [id number] Stent Ls Exp Vasc Cvr [id number] - [id number] Implanted:Qt y: 1 on 06/17/2023 by Hero Reza MD at [facility] IMPLANTS Right: Arterial CR BARD:PERIPHERAL VASC 10/16/2024 [id number] / / [id number] Stnt Blln Viabahn [id number] - [id number] Implanted:Qt y: 1 on 06/17/2023 by Hero Reza MD at [facility] IMPLANTS Right: Arterial WL GORE & ASSC:MED PRDT [id number] 10/29/2025 [id number] / [id number] / Stent Art Fem 7fr [id number] - [id number] Implanted:Qt y: 1 on 06/17/2023 by Hero Reza MD at [facility] IMPLANTS Right: Arterial WL GORE & ASSC:MED PRDT [id number] 02/23/2026 [id number] / [id number] / Description:RIGHT EXTERNAL I LIAC Ptch Vasc Biologic 0.7hww5kw E0.8p8 - [id number] Implanted:Qt y: 1 on 07/29/2023 by Hero Reza MD at [facility] IMPLANTS Right: Arterial LEMAITRE VASCULAR 09/15/2028 E0.8P8 / / [id number] Description:RIGHT FEMORAL AR JEROME Grft Eptfe-Hepari n Rng 7lb74rf [id number] - [id number] Implanted:Qt y: 1 on 11/04/2023 by Junior Vazquez MD at [facility] IMPLANTS N/A: Groin WL GORE & ASSC:MED PRDT 08/27/2026 [id number] / [id number] / Ptch Vasc Biologic 0.4ieb8js E0.8p8 - [id number] Implanted:Qt y: 1 on 11/04/2023 by Junior Vazquez MD at [facility] IMPLANTS Right: Arterial LEMAITRE VASCULAR E0.8P8 / / [id number] Stnt Vbx Blln Endo [id number] [id number] - [id number] Implanted:Qt y: 1 on 08/13/2022 by Hero Reza MD at [facility] Left: Arterial WL GORE & ASSC:MED PRDT 04/05/2025 [id number] / [id number] / Device Clsr Angio-Seal Vip 8fr [id number] - [id number] Implanted:Qt y: 1 on 08/13/2022 by Hero Reza MD at [facility] Right: Groin REEVES 11/15/2022 [id number] / / [id number] Device Clsr Angio-Seal Vip 6fr [id number] - [id number] Implanted:Qt y: 1 on 08/13/2022 by Hero Reza MD at [facility] Left: Groin REEVES 02/15/2023 [id number] / / [id number] Device Clsr Angio-Seal Vip 8fr [id number] - [id number] Implanted:Qt y: 1 on 06/17/2023 by Hero Reza MD at [facility] Right: Arterial REEVES [id number] 01/08/2024 [id number] / / [id number] Procedures Procedure Name Priority Date/Time Associated Diagnosis Comments FS_MODEL_IP_ECG 12-LEAD Routine 05/23/2025 4:03 PM EST Coronary artery disease involving [place] coronary artery of [place] heart without angina pectoris CTA CHEST STAT 02/15/2024 12:02 PM EDT from Last 3 Months or Most Recently Relevant to Health Maintenance Results * ECG 12 lead (05/23/2025 4:03 PM EST) Nancy Leung PA-C ECG ORDERABLES Final Result * CTA chest (02/15/2024 12:02 PM EDT) Anatomical Region Laterality Modality Chest, Lung Computed Tomogra phy (CT) 02/15/2024 1:06 PM EDT Impressions 02/15/2024 1:44 PM EDT No dissection or PE. COPD. Images reviewed, interpreted, and dictated by Munir Benton MD Narrative 02/15/2024 1:44 PM EDT CTA/PE PROTOCOL CHEST CT: 02/15/2024 11:51 AM HISTORY: Shortness of breath. COMPARISON: None. TECHNIQUE: The patient was injected with IV contrast. Axial images were obtained through the chest in a CTA/PE protocol. 3D reconstruction images were also performed. This study was performed with techniques to keep radiation doses as low as reasonably achievable, (ALARA). Individualized dose reduction techniques using automated exposure control or adjustment of mA and/or kV according to the patient size were employed. FINDINGS: The lungs are hyperinflated. There is biapical pleural thickening. There is nodularity in the right lung apex. The heart size is normal. There is no pericardial or pleural effusion. There is no adenopathy. There is no dissection. There is no PE. The common duct is prominent, likely related to prior cholecystectomy. No suspicious renal lesion identified. There is mild bibasilar atelectasis. A small saccular aneurysm projects off the posterior aspect of the proximal descending thoracic aorta. It measures 7 mm. Procedure Note Slade Benton MD - 02/15/2024 CTA/PE PROTOCOL CHEST CT: 02/15/2024 11:51 AM HISTORY: Shortness of breath. COMPARISON: None. TECHNIQUE: The patient was injected with IV contrast. Axial images were obtained through the chest in a CTA/PE protocol. 3D reconstruction images were also performed. This study was performed with techniques to keep radiation doses as low as reasonably achievable, (ALARA). Individualized dose reduction techniques using automated exposure control or adjustment of mA and/or kV according to the patient size were employed. FINDINGS: The lungs are hyperinflated. There is biapical pleural thickening. There is nodularity in the right lung apex. The heart size is normal. There is no pericardial or pleural effusion. There is no adenopathy. There is no dissection. There is no PE. The common duct is prominent, likely related to prior cholecystectomy. No suspicious renal lesion identified. There is mild bibasilar atelectasis. A small saccular aneurysm projects off the posterior aspect of the proximal descending thoracic aorta. It measures 7 mm. IMPRESSION: No dissection or PE. COPD. Images reviewed, interpreted, and dictated by Munir Benton MD Nicky Nguyen DO [facility] ORDERABLES Final Result from Last 3 Months or Most Recently Relevant to Health Maintenance Insurance [facility] SUPP MEDICARE PART A B Advance Directives For more information, please contact: [phone] Documents on File Type Date Recorded Patient Tightener Expl anation Advance Directives and Livin g Will 08/31/2022 8:53 AM * Full Code (Latest Code Status on File) Date Activated Date Inactivated Comments 11/02/2023 6:32 PM 11/07/2023 12:34 PM * Full Code Date Activated Date Inactivated Comments 07/29/2023 12:13 PM 07/30/2023 4:08 PM * Full Code Date Activated Date Inactivated Comments 07/29/2023 6:19 AM 07/29/2023 12:13 PM * Full Code Date Activated Date Inactivated Comments 06/17/2023 7:27 AM 06/17/2023 7:50 PM * Full Code Date Activated Date Inactivated Comments 08/31/2022 1:46 PM 09/01/2022 4:09 PM Care Teams Marble Installation Helper Relationship Specialty Start Date End Date Rita Callahan PA PCP - General 08/13/22
--- OUTSIDE RECORDS SUMMARY | 2025-07-16 14:20 | XMS_ITS | Referral Summary ---
Author Organization [employer] ([place], [place], [place], [place], [place]) Address [address] [place] [address] Care Team Providers Care Bench Repair Technician Name Role Phone Rita Callahan Primary Care Provider [phone] Encounters Date Type Department Care Team Description 05/23/2025 1:00 PM EST Office Visit [facility] Cardiology - [address] [address] Nancy Leung PA-C Coronary artery disease involving [place] coronary artery of [place] heart without angina pectoris (Primary Dx); Coronary arteriosclerosis in [place] artery from Last 3 Months Allergies Active Allergy Reactions Criticality Noted Date [...] capsules (200 mg total) by mouth nightly. Active varenicline tartrate (CHANTIX) 1 mg tablet Take by mouth. Active lisinopriL (ZESTRIL) 5 MG tabletIndications:Co ronary arteriosclerosis in [place] artery Take 1 tablet (5 mg total) by mouth nightly. 90 tablet 2 Active atorvastatin (LIPITOR) 20 MG tabletIndications:Co ronary arteriosclerosis in [place] artery Take 1 tablet (20 mg total) by mouth daily. 90 tablet 2 Active Active Problems Problem Noted Date Diagnosed [...] 07/26/2023 Stage 3a chronic kidney disease 10/11/2022 07/26/2023 Peripheral vascular disease 10/12/2016 06/17/2023 Coronary arteriosclerosis in [place] artery 06/17/2015 06/17/2023 Hypertensive disorder 06/16/2015 06/17/20232023 Overview (06/17/2023): From Automated Load;Provider: Cr Neff;Status: Active S/P coronary artery stent placement 07/19/2009 06/17/2023 Overview (11/13/2022): Dr. Royce Paez Social History Tobacco Use Types Packs/Day Years [...] the past 12 months, has t he [employer], gas, oil, or water [employer] threatened to shut off services in your [...] Do you speak a language other than Spanish at [place]? No 11/02/2023 Do you want help with [...] Mass Index 20.08 05/23/2025 1:31 PM EST Functional Status * Are you deaf or do you [...] No 07/30/2023 1:23 PM Kristi Flores RN Mental Status * Because of a physical, mental, or emotional condition, do you have serious difficulty concentrating, remembering, or making decisions? (5 years old or older) Answer Entry Date Author No 07/30/2023 1:23 PM Kristi Flores RN Plan of Treatment Upcoming Encounters Date Type Department Care Team (Late st Contact Info) Description 12/04/2025 1:30 PM EDT Office Visit [facility] Cardiology - [place] [address] [place] [address] Nancy Leung PA-C [address] [address] Medical Devices Implanted Type Area Sales Director Device Identifier Shelf Expiration Date Model / Serial / Lot Ptch Vasc Biologic 0.2fxc2jv E0.8p8 - [id number] Implanted:Qt y: 1 on 08/31/2022 by Vasiliy Morrison MD at [facility] IMPLANTS Right: Arterial LEMAITRE VASCULAR 03/15/2028 E0.8P8 / / [id number] Stent Ls Exp Vasc Cvr [id number] - [id number] Implanted:Qt y: 1 on 06/17/2023 by Heor Reza MD at [facility] IMPLANTS Right: Arterial CR BARD:PERIPHERAL VASC 10/16/2024 [id number] / / [id number] Stnt Blln Viabahn [id number] - [id number] Implanted:Qt y: 1 on 06/17/2023 by Hero Reza MD at [facility] IMPLANTS Right: Arterial WL GORE & ASSC:MED PRDT [id number] 10/29/2025 [id number] 1A / [id number] / Stent Art Fem 7fr 1mbm4ue [id number] - [id number] Implanted:Qt y: 1 on 06/17/2023 by Hero Reza MD at [facility] IMPLANTS Right: Arterial WL GORE & ASSC:MED PRDT [id number] 02/23/2026 [id number] 02A / [id number] / Description:RIGHT EXTERNAL I LIAC Ptch Vasc Biologic 0.4taa2vo E0.8p8 - [id number] Implanted:Qt y: 1 on 07/29/2023 by Hero Reza MD at [facility] IMPLANTS Right: Arterial LEMAITRE VASCULAR 09/15/2028 E0.8P8 / / [id number] Description:RIGHT FEMORAL AR JEROME Moreno Eptfe-Hepari n Rng [id number] - [id number] Implanted:Qt y: 1 on 11/04/2023 by Junior Vazquez MD at [facility] IMPLANTS N/A: Groin WL GORE & ASSC:MED PRDT 08/27/2026 [id number] / [id number] / Ptch Vasc Biologic 0.9ykq3ij E0.8p8 - [id number] Implanted:Qt y: 1 on 11/04/2023 by Junior Vazquez MD at [facility] IMPLANTS Right: Arterial LEMAITRE VASCULAR E0.8P8 / / [id number] Stnt Vbx Blln Endo [id number] - [id number] Implanted:Qt y: 1 on 08/13/2022 by Hero Reza MD at [facility] Left: Arterial WL GORE & ASSC:MED PRDT 04/05/2025 [id number] 1A / [id number] / Device Clsr Angio-Seal Vip 8fr [id number] - [id number] Implanted:Qt y: 1 on 08/13/2022 by Hero Reza MD at [facility] Right: Groin REEVES 11/15/2022 [id number] / / [id number] Device Clsr Angio-Seal Vip 6fr [id number] - [id number] Implanted:Qt y: 1 on 08/13/2022 by Hero Reza MD at [facility] Left: Groin REEVES 02/15/2023 [id number] / / [id number] Device Clsr Angio-Seal Vip 8fr [id number] - [id number] Implanted:Qt y: 1 on 06/17/2023 by Hero Reza MD at [facility] Right: Arterial REEVES [id number] 01/08/2024 [id number] / / [id number] Procedures Procedure Name Priority Date/Time Associated Diagnosis Comments FS_MODEL_IP_ECG 12-LEAD Routine 05/23/2025 4:03 PM EST Coronary artery disease involving [place] coronary artery of [place] heart without angina pectoris CTA CHEST STAT 02/15/2024 12:02 PM EDT from Last 3 Months or Most Recently Relevant to Health Maintenance Results * ECG 12 lead (05/23/2025 4:03 PM EST) Nancy LIN-Tara ECG ORDERABLES Final Result * CTA chest [...] by Munir Benton MD Nicky Nguyen DO [facility] ORDERABLES Final Result from Last 3 Months or Most Recently Relevant to Health Maintenance Insurance [facility] SUPP MEDICARE PART A B Advance Directives For more information, please contact: [phone] Documents on File Type Date Recorded Patient Network Engineer Expl anation Advance Directives and Livin g [...] 1:46 PM 09/01/2022 4:09 PM Care Teams Bench Repair Technician Relationship Specialty Start Date End Date Rita Callahan PA PCP - General 08/13/22
--- OUTSIDE RECORDS SUMMARY | 2025-07-16 14:21 | XMS_ITS | Encounter Summary ---
Author Organization [employer] ([place], [place], [place], [place], [place]) Address [address] [place] [address] Care Team Providers Care Marriage Therapist Name Role Phone Rita Callahan Primary Care Provider [phone] Encounter Details Date Type Department Care Team (Late st Contact Info) Description 04/06/2019 Transcribed Document [facility] [place] Family Medicine [address] [place] [address] ProviderJohnny MD [address] [place] [address] Social History Tobacco Use Types Packs/Day Years Used Date Smoking Tobacco: Never Assessed Comments Unknown Sex and Gender Information Value Date Recorded Sex Assigned at Not on file Legal Sex Female 4:10 PM CDT Gender Identity Not on file Sexual Orientation Not on file documented as of this encounter Miscellaneous Notes * Cerner Conversion Note - Johnny ProviderMD - 04/06/2019 11:21 AM CDT Nursing Discharge Summary Entered On: 04/06/2019 11:21 EDT Performed On: 04/06/2019 11:21 EDT by HAWA PATTERSON RN Discharge Documentation Discharge Date/Time : 04/06/2019 12:40 EDT HAWA PATTERSON RN - 04/06/2019 12:36 EDT Patient Disposition, General : Discharge Discharge To : Home with ambulatory/outpatient follow-up Mode Of Departure, General Discharge : Private vehicle Accompanied By, Discharge : Spouse IV Discontinued : Not applicable Personal Belongings With Patient : Yes Discharge Instructions Reviewed With, Opportunity For Questions Given : Patient, Spouse Patient Education Completed : Yes Teaching Method : Explanation, Printed materials Teaching Evaluation : Returns demonstration, Verbalizes understanding HAWA PATTERSON RN - 04/06/2019 11:21 EDT Electronically signed by Keagan Hernandez Conversion Commercial [employer] Sales Executive Cerner at 11/04/2022 10:07 PM CDT documented in this encounter Plan of Treatment Upcoming Encounters Date Type Department Care Team (Late st Contact Info) Description 12/04/2025 1:30 PM EDT Office Visit [facility] Cardiology - [place] [address] [place] [address] Nancy Leung PA-C [address] [facility] [address] [place] [address] documented as of this encounter Visit Diagnoses Not on filedocumented in this encounter Care Teams Marriage Therapist Relationship Specialty Start Date End Date Rita Callahan PA PCP - General 08/13/22 documented as of this encounter
--- OUTSIDE RECORDS SUMMARY | 2025-07-16 14:21 | XMS_ITS | Encounter Summary ---
Author Organization [employer] ([place], [place], [place], [place], [place]) Address [address] [place] [address] Care Team Providers Care Allergy Nurse Name Role Phone Rita Callahan Primary Care Provider [phone] Encounter Details Date Type Department Care Team (Late st Contact Info) Description 04/06/2019 Transcribed Document [facility] [place] Family Medicine [facility] [place] [address] ProviderJohnny MD [address] [place] [id number] Social History Tobacco Use Types Packs/Day Years Used Date Smoking Tobacco: Never Assessed Comments Unknown Sex and Gender Information Value Date Recorded Sex Assigned at Not on file Legal Sex Female 4:10 PM CDT Gender Identity Not on file Sexual Orientation Not on file documented as of this encounter Miscellaneous Notes * Cerner Conversion Note - Johnny Brower MD - 04/06/2019 12:27 PM CDT DATE OF PROCEDURE:04/06/2019 LINQ IMPLANTATION REPORT PREOPERATIVE DIAGNOSIS(ES): POSTOPERATIVE DIAGNOSIS(ES): SURGEON: Attending physician: Cr Neff MD REFERRING PHYSICIAN: RILEY Durant PROCEDURE: Insertion of a Medtronic Reveal LINQ loop recorder. INDICATION: Syncope. DESCRIPTION OF PROCEDURE: After having obtained a written consent, patient was brought to procedure laboratory in a fasting condition. The left chest wall was prepped and draped. The chest wall was marked. Lidocaine 2% was injected for local anesthesia. A stab incision was made to the anterior chest wall. The loop recorder was then implanted subcutaneously. The device was then interrogated with the R-wave was 0.28 mV. The device is a [employer] Reveal LINQ loop recorder serial number [id number]. No procedure complications noted. Cr Neff M.D. Dict: 04/06/2019 12:27:07 Trans: 04/06/2019 13:22:56 CC1: Cr Neff M.D. CC2: Nancy Leung PA-C Electronically signed by [facility] Conversion Boring Machine Operator Vertical Cerner at 11/04/2022 9:52 PM CDT documented in this encounter Plan of Treatment Upcoming Encounters Date Type Department Care Team (Late st Contact Info) Description 12/04/2025 1:30 PM EDT Office Visit [facility] Cardiology - [address] [address] Nancy Leung PA-C [address] [place] [address] documented as of this encounter Visit Diagnoses Not on filedocumented in this encounter Care Teams Allergy Nurse Relationship Specialty Start Date End Date Rita Callahan PA PCP - General 08/13/22 documented as of this encounter
--- OUTSIDE RECORDS SUMMARY | 2025-07-16 14:21 | XMS_ITS | Encounter Summary ---
Author Organization [employer] ([place], [place], [place], [place], [place]) Address [address] [place] [address] Care Team Providers Care Ict Sales Assistant Name Role Phone Rita Callahan Primary Care Provider Encounter Details Date Type Department Care Team (Late st Contact Info) Description 04/06/2019 Transcribed Document [facility] [place] [address] [place] [address] ProviderJohnny MD [address] [place], [place] [id number] Social History Tobacco Use Types Packs/Day Years Used Date Smoking Tobacco: Never Assessed Comments Unknown Sex and Gender Information Value Date Recorded Sex Assigned at Not on file Legal Sex Female 4:10 PM CDT Gender Identity Not on file Sexual Orientation Not on file documented as of this encounter Miscellaneous Notes * Cerner Conversion Note - Johnny Brower MD - 04/06/2019 11:41 AM CDT Patient Education Materials Follows: Wound Infection A wound infection happens when germs start to grow in the wound. Germs that cause wound infections are most often bacteria. Other types of infections can occur as well. In some cases, infection can cause the wound to break open. Wound infections need treatment. If a wound infection is not treated, complications can happen. Follow these instructions at home: Medicines ??? Take or apply drga-ijg-pukcjvv and prescription medicines only as told by your doctor. ??? If you were prescribed antibiotic medicine, take or apply it as told by your doctor. Do not stop using the antibiotic even if your condition improves. Wound care ??? Clean the wound each day or as told by your doctor. ? Wash the wound with mild soap and water. ? Rinse the wound with water to remove all soap. ? Pat the wound dry with a clean towel. Do not rub it. ??? Follow instructions from your doctor about how to take care of your wound. Make sure you: ? Wash your hands with soap and water before you change your bandage (dressing). If you cannot use soap and water, use hand weblogic developer. ? Change your bandage as told by your doctor. ? Leave stitches (sutures), skin glue, or skin tape (adhesive) strips in place if your wound has been closed. They may need to stay in place for 2 weeks or longer. If tape strips get loose and curl up, you may trim the loose edges. Do not remove tape strips completely unless your doctor says it is okay. Some wounds are left open to heal on their own. ??? Check your wound every day for signs of infection. Watch for: ? More redness, swelling, or pain. ? More fluid or blood. ? Warmth. ? Pus or a bad smell. General instructions ??? Keep the bandage dry until your doctor says it can be removed. ??? Do not take baths, swim, use a hot tub, or do anything that would put your wound underwater until your doctor says it is okay. ??? Raise (elevate) the injured area above the level of your heart while you are sitting or lying down. ??? Do not scratch or pick at the wound. ??? Keep all follow-up visits as told by your doctor. This is important. Contact a doctor if: ??? Medicine does not help your pain. ??? You have more redness, swelling, or pain in the area of your wound. ??? You have more fluid or blood coming from your wound. ??? Your wound feels warm to the touch. ??? You have pus coming from your wound. ??? You continue to notice a bad smell coming from your wound or your bandage. ??? Your wound that was closed breaks open. Get help right away if: ??? You have a red streak going away from your wound. ??? You have a fever. This information is not intended to replace advice given to you by your health care provider. Make sure you discuss any questions you have with your health care provider. Document Released: 04/13/2009 Document Revised: 12/10/2016 Document Reviewed: 12/23/2015 [employer] Interactive Patient Education ? 2019 [employer] Cardiac Event Monitoring A cardiac event monitor is a small recording device used to help detect abnormal heart rhythms (arrhythmias). The monitor is used to record heart rhythm when noticeable symptoms such as the following occur: ??? Fast heartbeats (palpitations), such as heart racing or fluttering. ??? Dizziness. ??? Fainting or light-headedness. ??? Unexplained weakness. The monitor is wired to two electrodes placed on your chest. Electrodes are flat, sticky disks that attach to your skin. The monitor can be worn for up to 30 days. You will wear the monitor at all times, except when bathing. How to use your cardiac event monitor A manufacturing plant technician will prepare your chest for the electrode placement. The manufacturing plant technician will show you how to place the electrodes, how to work the monitor, and how to replace the batteries. Take time to practice using the monitor before you leave the office. Make sure you understand how to send the information from the monitor to your health care provider. This requires a telephone with a landline, not a cell phone. You need to: ??? Wear your monitor at all times, except when you are in water: ? Do notget the monitor wet. ? Take the monitor off when bathing. Do not swim or use a hot tub with it on. ??? Keep your skin clean. Do not put body lotion or moisturizer on your chest. ??? Change the electrodes daily or any time they stop sticking to your skin. You might need to use tape to keep them on. ??? It is possible that your skin under the electrodes could become irritated. To keep this from happening, try to put the electrodes in slightly different places on your chest. However, they must remain in the area under your left breast and in the upper right section of your chest. ??? Make sure the monitor is safely clipped to your clothing or in a location close to your body that your health care provider recommends. ??? Press the button to record when you feel symptoms of heart trouble, such as dizziness, weakness, light-headedness, palpitations, thumping, shortness of breath, unexplained weakness, or a fluttering or racing heart. The monitor is always on and records what happened slightly before you pressed the button, so do not worry about being too late to get good information. ??? Keep a diary of your activities, such as walking, doing chores, and taking medicine. It is especially important to note what you were doing when you pushed the button to record your symptoms. This will help your health care provider determine what might be contributing to your symptoms. The information stored in your monitor will be reviewed by your health care provider alongside your diary entries. ??? Send the recorded information as recommended by your health care provider. It is important to understand that it will take some time for your health care provider to process the results. ??? Change the batteries as recommended by your health care provider. Get help right away if: ??? You have chest pain. ??? You have extreme difficulty breathing or shortness of breath. ??? You develop a very fast heartbeat that persists. ??? You develop dizziness that does not go away. ??? You faint or constantly feel you are about to faint. This information is not intended to replace advice given to you by your health care provider. Make sure you discuss any questions you have with your health care provider. Document Released: 04/13/2009 Document Revised: 12/10/2016 Document Reviewed: 01/01/2014 [employer] Interactive Patient Education ? 2017 [employer] documented in this encounter Plan of Treatment Upcoming Encounters Date Type Department Care Team (Late st Contact Info) Description 12/04/2025 1:30 PM EDT Office Visit [facility] Cardiology - [place] [address] [place] [address] Nancy Leung PA-C [address] [facility] [address] [place] [address] documented as of this encounter Visit Diagnoses Not on filedocumented in this encounter Care Teams Ict Sales Assistant Relationship Specialty Start Date End Date Rita Callahan PA PCP - General 08/13/22 documented as of this encounter
--- OUTSIDE RECORDS SUMMARY | 2025-07-16 14:21 | XMS_ITS | Encounter Summary ---
Author Organization [employer] ([place], [place], [place], [place], [place]) Address [address] [place] [address] Care Team Providers Care Director Biostatistics Name Role Phone Rita Callahan Primary Care Provider [phone] Encounter Details Date Type Department Care Team (Late st Contact Info) Description 04/06/2019 Transcribed Document [facility] [place] [facility] [place] [address] ProviderJohnny MD [address] [place] [address] Social History Tobacco Use Types Packs/Day Years Used Date Smoking Tobacco: Never Assessed Comments Unknown Sex and Gender Information Value Date Recorded Sex Assigned at Not on file Legal Sex Female 4:10 PM CDT Gender Identity Not on file Sexual Orientation Not on file documented as of this encounter Miscellaneous Notes * Cerner Conversion Note - Johnny Brower MD - 04/06/2019 12:00 PM CDT [facility] [place] [id number] DEEDEIDRA LAKHANI PRITI :1945 Visit Time:04/06/2019 Your Visit Summary Your Care Team Admitting Physician - JAJA KING MD-CAR Attending Physician - JAJA KING MD-CAR Primary Care Physician - MARILYN RIZO MD-[facility] Referring Physician - JAJA KING MD-CAR Your Diagnosis Syncope and collapse, Syncope and collapse, Syncope and collapse Discharge Vitals Temperature 36.4 ??C Heart Rate (Monitored) 58 Respiratory Rate 39 Blood Pressure 140/51 What to do next Instructions From Your Care Team Diet after Discharge: Resume usual diet as tolerated Activity after Discharge: Rest and relax today, No strenuous activity Driving after Discharge: Do not drive for 24 hours Showering/Bathing: You have steristrips and dermabond skin glue that will come off on their own over the next 2-3 weeks. You may shower starting tomorrow with your back turned toward the spray of water. Medications: No changes to your current home medications. Notify Provider of: any bleeding, hematoma, or signs of infection. Follow-Up Appointments Follow Up with LUCA LEUNG PA-UNK When 04/21/2019 11:45 AM EDT Comments Follow-up as instructed Where: [address] [place] [address]- Follow Up with LUCA LEUNG When Within 6 weeks Comments F/U IN 6 WEEKS WITH A MDT [facility] LOOP RECORDER INTERROGATION Where: [address] [facility] [place] [address]- Business (1) Medications What How Much When Instructions Next Dose aspirin 81 Milligram(s) Oral Every Day tonight lisinopril (lisinopril 10 mg oral tablet) 1 Tablet(s) Oral Every Day tomorrow multivitamin with minerals (Centrum) 1 Tablet(s) Oral Every Day tomorrow simvastatin (Zocor) 10 Milligram(s) Oral At Bedtime tonight Take your medications faithfully. Do NOT skip medication. Do NOT stop taking medications without the direction of a physician. Carry a list of your medications with you at all times, and take this medication list with you to your first follow up visit. Report any side effects. Avoid herbal remedies unless discussed with your physician. As part of your treatment plan, your physician may have prescribed a limited course of a controlled substance. This medication may be given to help people with moderate or severe pain or for other medical conditions, but there are risks involved with treatment. Common side effects may include nausea, constipation, drowsiness, sweating, itching, dry mouth, and rash. More serious side effects may include cognitive and motor impairment, like problems with thinking, concentrating, alertness, and movement (e.g. slowed reflexes), and driving and operating heavy machinery can be dangerous. It is important for you to talk to your physician if you have these side effects or questions. These controlled substances can produce physical dependence and be habit-forming if taken for an extended period of time, which means that the body has gotten used to them and may experience withdrawal symptoms if they are abruptly stopped. Withdrawal symptoms can include runny nose, sweating, goose bumps, diarrhea, abdominal cramping, rapid heartbeat, difficulty sleeping, and nervousness. Please dispose of unused and medications per your retail pharmacy guidance. Allergies acetaminophen-HYDROcodone (nausea, nausea) cephalosporins (Nausea, abdominal pain, swelling to lips, tongue, swelling to lips, tongue~abdominal pain~Nausea) codeine (abdominal pain, abdominal pain) Immunizations This Visit No Immunizations Found Education Materials Wound Infection A wound infection happens when [...] at home: Medicines ??? Take or apply wgmh-zfr-[id number] and prescription medicines only as told by [...] cannot use soap and water, use hand salon receptionist. ? Change your bandage as told by [...] 04/13/2009 Document Revised: 12/10/2016 Document Reviewed: 12/23/2015 [employer] Interactive Patient Education ?? 2019 [employer] Cardiac Event Monitoring A cardiac event [...] to use your cardiac event monitor A crystal growing technician will prepare your chest for the electrode placement. The crystal growing technician will show you how to place [...] 04/13/2009 Document Revised: 12/10/2016 Document Reviewed: 01/01/2014 [employer] Interactive Patient Education ?? [address] Emergency Awareness and Preventative Care STROKE is an EMERGENCY Every Minute Counts Act FAST and Check for these signs: FACE Does the face look uneven? ARM Does one arm drift down? SPEECH Does their speech sound strange? TIME Call at any sign of stroke Stroke Risk Factors Atrial Fibrillation (irregular heartbeat) Diabetes Family history of stroke Heart Disease Heavy alcohol use High Blood Pressure High Cholesterol Physical inactivity and obesity Smoking Cigarette Smoking The facts are clear, cigarette smoking will shorten your life. Smoking can cause many illnesses along the way. As a healthcare provider, we recommend that you stop smoking. Assistance with quitting is available by contacting 2-821-QCQJ-NOW. This is a free resource providing counseling, support, and referral. Or you may contact your personal physician. National Suicide Prevention Lifeline: The National Suicide Prevention Lifeline is a national network of local crisis centers that provides free and confidential emotional support to people in suicidal crisis or emotional distress 24 hours a day, 7 days a week. Don't Wait! Stop a Heart Attack Before it Starts What is a heart attack? A heart attack is damage or to a part of the heart from severely decreased or lack of blood flow to the heart. Over time, arteries can become narrow from the buildup of fat and cholesterol, which is called plaque. The plaque can rupture causing a blood clot to form. When the blood clot forms, the artery can become severely narrowed or completely blocked, causing a heart attack. Heart attack is the leading cause of in the [place]. 85% of muscle damage occurs within the first 2 hours. Delay in the recognition of heart attack symptoms increases the chances of . Know the early symptoms of a heart attack: Nausea Feeling of fullness in chest Jaw Pain Pain that travels down one or both arms Fatigue/being tired Anxiety Back Pain Chest pressure, squeezing, or discomfort Shortness of breath Sweating, or a cold sweat Feeling of impending doom There are unusual signs of a heart attack, too! Women, the elderly, and diabetics may present with atypical symptoms: Fainting/dizziness Weakness Confusion Risk Factors for a Heart Attack Some heart disease risk factors, such as age and family history, cannot be changed. Others, like smoking and lack of exercise, can be changed. Smoking High Cholesterol High Blood Pressure Family History Obesity Age Gender (Males are at higher risk) Lack of Exercise Diabetes Diet Stress Excessive Alcohol Intake If you or someone you know is experiencing the signs and symptoms of a heart attack, DON???T DELAY. Call immediately and seek help. If someone collapses, perform CPR! Do not attempt to drive if you are having symptoms of heart attack. Hands-Only CPR Why Hands-Only CPR? Hands-Only CPR has been shown to be as effective as conventional CPR for cardiac arrests that occur outside of a hospital. Survival depends on immediately receiving CPR from someone nearby. How do you perform Hands-Only CPR? There are two easy steps: Call if you see a teen or adult collapse Push hard and fast in the center of the chest at a beat of 100 beats per minute. Save a life! 4 WAYS TO GET AHEAD OF SEPSIS SEPSIS is a MEDICAL EMERGENCY. Time matters! Infections put you and your family at risk for a life-threatening condition called sepsis. Sepsis is the body's extreme response to an infection. It is life-threatening, and without timely treatment, sepsis can rapidly lead to tissue damage, organ failure, and . Sepsis happens when an infection you already have-in your skin, lungs, urinary tract or somewhere else-triggers a chain reaction throughout your body. 1 PREVENT INFECTIONS Take good care of chronic conditions. Talk to your doctor about getting the recommended vaccines. 2 PRACTICE GOOD HYGIENE Wash your hands frequently. Keep cuts or open sores clean and covered until they are healed. 3 KNOW THE SYMPTOMS Confusion or disorientation Shortness of breath High heart rate Fever, shivering, or feeling very cold Extreme pain or discomfort Clammy or sweaty skin 4 ACT FAST Get medical care IMMEDIATELY if you suspect sepsis or if you have an infection that is not getting better or is getting worse. To learn more about sepsis and how to prevent infections, visit www.cdc.gov/sepsis. Test Results Laboratory or Other Results This Visit (last charted value for your 04/06/2019 visit) No Laboratory or Other Results This Visit Patient Name:DEIDRA PRICE I have received and understand this information and was given the opportunity to ask questions. Patient/Accounts Payable Specialist Name: Patient/Accounts Payable Specialist Signature: Relationship to Patient: Clinician/Hospital Accounts Payable Specialist Signature: Date: Electronically signed by Keagan Hernandez Conversion Electrocardiogram Technician Cerner at 11/04/2022 9:57 PM CDT documented in this encounter Plan of Treatment Upcoming Encounters Date Type Department Care Team (Late st Contact Info) Description 12/04/2025 1:30 PM EDT Office Visit [facility] Cardiology - [place] [address] [place] [address] Luca Leung PA-C [address] [facility] [address] [place] [address] documented as of this encounter Visit Diagnoses Not on filedocumented in this encounter Care Teams Director Biostatistics Relationship Specialty Start Date End Date Rita Callahan PA PCP - General 08/13/22 documented as of this encounter
--- OUTSIDE RECORDS SUMMARY | 2025-07-16 14:21 | XMS_ITS | Clinical Summary ---
Author Organization [facility] Address [address] [place] [address] Care Team Providers Care National Park Ranger Name Role Phone Navid Huizar MD Primary Care Provider Social History Tobacco Use Types Packs/Day Years Used Date Smoking Tobacco: Never Assessed Abuse Screen Answer Date Recorded Unsafe at Home or Work/School Not on file Feels Threatened by Someone? Not on file 06/2023 Does Anyone Keep You from Co ntacting Others or Doint Things Outside the Home? Not on file 04/29/2023 Physical Sign of Abuse Present Not on file 1 Housing Stability Answer Date Recorded Current Living Arrangements Not on file 04/18 Potentially Unsafe Housing Conditions Not on jessica e 04/29/2023 Family and Community Support Answer Sundar e Recorded Help with Day-to-Day Activities Not on file 04/29/2023 Lonely or Isolated Not on file 04/29/2023 Employment Answer Date Recorded Do you want help finding or keeping work or a tom b? Not on file 04/29/2023 Disabilities Answer Date Recorded Concentrating, Remembering, or Making Decisions Difficulty Not on file 04/29/2023 Doing Errands Independently Difficulty Not on fi le 04/29/2023 Education Answer Date Recorded Help with school or training? Not on file Preferred Language Not on file 04/29/2023 Comments Unknown Sex and Gender Information Value Date Recorded Sex Assigned at Not on file Legal Sex Female 4:23 PM EST Gender Identity Not on file Sexual Orientation Not on file Plan of Treatment Health Maintenance Due Date Last Done Comments DXA SCAN 1945 Pneumococcal Vaccine 50+ (1 of 2 - PCV) 1965 TDAP/TD VACCINES (1 - Tdap) 1965 ZOSTER VACCINE (1 of 2) 1996 ANNUAL PHYSICAL 10/13/2020 HEPATITIS C SCREENING 10/13/2020 RSV Vaccine - Adults (1 - 1- dose 75+ series) 2021 INFLUENZA VACCINE 02/16/2025 COVID-19 Vaccine (3 - 2024- season) 2025, 08/14/2020 Insurance MEDICARE A & B Member Subscriber Plan / Payer (Ef fective 2011-Present) Name:Alena Villanueva Member ID:[id number] Relation to Subscriber:Self Name:Alena Villanueva Subscriber ID:[id number] Payer ID:[id number] Group ID:Not on file Type:Not on file Address: [id number] [employer] Care Teams National Park Ranger Relationship Specialty Start Date End Date Navid Huizar MD PCP - General Family Medicine 10/13/20
[2025-07-16 15:07] LABS: Hematocrit 27.9 % (37.0-47.0); Hemoglobin 8.6 g/dL (12.2-16.2); Immature Granulocytes % 0.3 %; Mean Corpuscular HGB Conc 30.8 g/dL (31.8-35.4); Mean Corpuscular Hemoglobin 30.6 pg (27.0-31.2); Mean Corpuscular Volume 99.3 fl (81-99); Nucleated Red Blood Cells % 0 %; Platelet Count 328 K/mm3 (142-424); Red Blood Count 2.81 M/mm3 (4.20-5.40); Red Cell Distribution Width-SD 45.5 fL; White Blood Count 6.7 K/mm3 (4.8-10.8)
[2025-07-16 15:20] LABS: INR 1.13 (0.9-1.1); Prothrombin Time 12.4 seconds (10.1-12.5)
[2025-07-16 16:17] LABS: Chloride 107 mmol/L (98-107); Sodium 141 mmol/L (136-145)
[2025-07-16 16:18] LABS: Potassium 4.0 mmoL/L (3.5-5.1)
[2025-07-16 16:20] LABS: Blood Urea Nitrogen 19 mg/dl (7-17); Creatinine,Serum 1.10 mg/dl (0.52-1.04); Estimated Glomerular Filt Rate 48 ml/min (>60); GFR (African American) 58 ML/MIN (>60)
[2025-07-16 16:21] LABS: Anion Gap 13.0 mEq/L (5-15); Calcium 9.7 mg/dl (8.4-10.2); Carbon Dioxide 25 mmol/L (22.0-30.0); Glucose 85 mg/dl (74-100)
== END 2025-07-16 23:59 | disposition home or self-care (01) ==
LOC: LAB 14:10
PROVIDERS: PCP Physician Assistant Surgical; Visit Provider Surgery
DX: I70.221 Atherosclerosis of native arteries of extremities with rest pain, right leg (principal); I74.5 Embolism and thrombosis of iliac artery; F17.219 Nicotine dependence, cigarettes, with unspecified nicotine-induced disorders; J44.9 Chronic obstructive pulmonary disease, unspecified; Z91.81 History of falling; R14.0 Abdominal distension (gaseous)
CPT/HCPCS: 36415; 80048; 85025; 85610